=== PATIENT | female | born 1935 | race Caucasian/White ===

== ENCOUNTER 2018-01-28 05:21 | Day surgery (SDC) | payer MEDICARE, SELFPAY ==
--- NOTE | 2018-01-21 09:36 | EKG12_ITS ---
Test Reason : PREOP Blood Pressure : / mmHG Vent. Rate : 055 BPM Atrial Rate : 055 BPM P-R Int : 184 ms QRS Dur : 126 ms QT Int : 440 ms P-R-T Axes : 026 -75 -10 degrees QTc Int : 420 ms Sinus bradycardia with Premature atrial complexes Right bundle branch block Left anterior fascicular block Bifascicular block Abnormal ECG Confirmed by FRANCES MUSTAFA, BUSHRA ([id number]), telegraph editor RAMÓN JUNG ([id number] on 01/23/2018 10:15:45 AM Referred By: Rakesh Garcia Confirmed By:BUSHRA DANIELS MD
[2018-01-21 09:54] LABS: Hematocrit 39.8 % (37-47); Hemoglobin 12.9 g/dl (12.0-15.0); Mean Corp Hgb Conc 32.4 g/gl (32-36); Mean Corpuscular Volume 89.4 fL (81-99); Mean Platelet Vol. 9.9 fl (6.2-12.0); Platelet Count 193 K/mm3 (150-450); RBC Distribution Width SD 41.9 fl (35.1-43.9); Red Blood Count 4.45 M/mm3 (4.2-5.4)
[2018-01-21 09:56] LABS: Scan Indicated on CBC? Y/N NO
[2018-01-21 10:14] LABS: Anion Gap 7 (5-15); BUN 26 mg/dL (7-18); BUN/Creat Ratio 24.3 RATIO (10-20); Chloride 105 mmol/L (98-107); Creatinine, Serum 1.07 mg/dL (0.55-1.02); EST Glomerular Filtration Rate 52 mL/min (>60); Est Glom Filt Rate - Afr Amer 63 mL/min (>60); Glucose 87 mg/dL (74-106); Potassium 3.4 mmol/L (3.5-5.1); Sodium Level 142 mmol/L (136-145)
[2018-01-28] VITALS (7 sets, daily range): BP systolic 126–155; BP diastolic 76–80; PULSE 55–64; RESP 14–16; TEMP 36.4–36.9; O2SAT 95–98; BMI 26.9
--- NOTE | 2018-01-28 07:15 | TESH_PTH ---
PATIENT: ROSIE MORALES LOC: [facility] [place] U#:[id number] AGE/SX: 82/F ROOM: RE01/28/[address]: Dr. Rakesh Garcia MD : [id number] BED: DIS: 01/28/2018 SPEC #: [id number] RECD: 01/28/18 10:40 STATUS: KELLIE HEAVEN #: [id number] BRE: 01/28/18 07:[address]: Rakesh Garcia DEPT: SURGICAL PATHOLOGY RECD BY: Lorenzo Portillo ENTERED: 01/28/18 11:38 SP TYPE: TENDON OTHR DR: Dr. Clarke Murphy, DO Tissues: Tendon and tendon sheath, NOS Procedures: Surgery Specimen Level III HEADER OPERATION: Right carpal tunnel release, right fourth digit trigger finger PRE-OP DIAGNOSIS: Carpal tunnel syndrome of right wrist TISSUE SUBMITTED: Tenosynovium MICROSCOPIC DIAGNOSIS Tenosynovium: Fragments of fibrocartilaginous tissue with reactive changes. TONIA:ina 01/29/18 MICROSCOPIC DESCRIPTION Slides are reviewed. GROSS DESCRIPTION Received in fixative is one container labeled with the patient's name and designated tenosynovium. The specimen consists of two irregular fragments of light johnson soft tissue that in aggregate measure 0.7 x 0.2 x 0.1 cm. The specimen is totally submitted in one cassette. / AM:ina 01/28/18 TC:5 CPT: 73838
--- NOTE | 2018-01-28 07:36 | PCM.DC.GS ---
Discharge Diet: Light diet - advance as tolerated - if you have questions about your diet instructions, please talk to you doctor. Discharge Activity: May Not Drive - for 1 week or while taking narcotic pain medicine. May shower in (days): 1 Lifting Restrictions: 10 pounds Call your doctor if your incision/area has: Continuous Slow Oozing, Sudden Increased Bleeding, Increased Pain/ Swelling, Increased Redness, Foul Smelling Discharge Call your doctor if you observe: Fever of 101 or Higher Suture Line Care: Avoid Pulling/Pushing, Avoid Pinching/Bending Additional Dressing/Incision Instructions:: You may shower in 1 day if you are able to protect your right hand and dressings with a plastic bag. Limit her lifting of the right hand to 3-5 pounds. You may utilize her fingers for light work. Allergies/Adverse Reactions: Allergies JOE Inhibitors Allergy (Verified 01/21/18 08:42) Rash Penicillins Allergy (Verified 01/21/18 08:42) Rash gabapentin [From Neurontin] Adverse Reaction (Verified 01/21/18 08:42) Swelling oxycodone HCl [From Percocet] Adverse Reaction (Verified 01/21/18 08:42) Nausea tramadol Adverse Reaction (Verified 01/21/18 08:42) Nausea Medications to take at Discharge Vit A/Vit C/Vit E/Zinc/Copper [Preservision Areds Softgel] 1 ea PO DAILY 06/30/14 Hydrochlorothiazide 12.5 mg PO DAILY 04/02/16 Losartan Potassium [Cozaar] 100 mg PO DAILY 04/02/16 Diltiazem HCl [Cartia Xt] 240 mg PO DAILY 01/07/17 ibuprofen 200 mg tablet 200 mg PO BID 12/20/17 Primary Care Physician: Clarke Murphy DO [Primary Care Provider] - Test Results: Test results from this visit will be discussed in further detail at your follow-up appointment, if applicable. Please Follow Up With: Rakesh Garcia MD - [phone] When: Call to make an appointment to be seen on Saturday02/03/18
[2018-01-28] MEDS: Bupivacaine Mpf 0.5% 30 ML VIAL (08:00)
--- NOTE | 2018-01-28 08:18 | OP.PCM_ITS ---
Problem List (1) Carpal tunnel syndrome of right wrist Status: Acute (2) Trigger finger Status: Acute Qualifiers: Trigger finger location: ring finger Laterality: right Qualified Code(s) : M65.341 - Trigger finger, right ring finger Report of Operation Date of Procedure: 01/28/18 Pre-Operative Diagnosis: Right hand carpal tunnel syndrome, right hand fourth digit trigger finger Post-Operative Diagnosis: Same Surgery/Procedure Performed:: Right carpal tunnel release. Right hand fourth digit trigger finger release tenosynovectomy Description of Surgical Findings:: Timeout and informed consent was obtained. 82-year-old female was taken the operating room. The right upper extremity sterilely prepped and draped. A right upper extremity Kelly block was performed. 250 mmHg pressure for 32 minutes. The right hand was sterilely prepped and draped. A curvilinear incision in the base of the base of the right palm. Sharp dissection carried down to the palmar fascia. The palmar fascia was incised to the proximal wrist crease and then along the fourth ray was incised to the distal palmar crease. Excellent release was achieved. The wound was closed with deep layer of interrupted 4-0 chromic subdermal stitches and a running simple suture of 4-0 nylon. Attention was drawn to the right hand fourth digit. At the metacarpal phalangeal joint location a transverse incision was created sharp dissection carried down to Diaz tissue the tenosynovium was identified in the hypertrophic tendon identified a longitudinal incision was released. A tenosynovectomy was performed excising portions of hypertrophic tissue to allow for release of the tendon. At the completion there appeared to be free release with good motion of the tendon and resolution of the triggering. Fragments of excessive hypertrophic tenosynovium was submitted a specimen. This wound office was closed with a deep suture of interrupted 4-0 chromic and then simple sutures of 4-0 nylon. Each wound was anesthetized with 0.5% Marcaine total of only 3 cc was used. Telfa 4 x 4 soft roll Kwan wrap applied. Sponge and instrument and needle counts were reported to the surgeon to be correct. Blood loss was minimal. Specimens include the tenosynovium. Drains none. She was taken to the recovery area in satisfactory condition Rakesh Garcia M.D., F.A.C.S. Type of Anesthesia:: Block,[place] Anesthesiologist: Angie Burns
== END 2018-01-28 09:22 | disposition home or self-care (01) ==
LOC: SDC 05:22 → AC 05:22
PROVIDERS: Family Provider Student in an Organized Health Care Education/Training Program; PCP Student in an Organized Health Care Education/Training Program; Visit Provider Surgery
PROC: (CPT 64721; principal; 2018-01-28 07:00)
DX: G56.01 Carpal tunnel syndrome, right upper limb (principal); M65.341 Trigger finger, right ring finger; I10 Essential (primary) hypertension; Z79.899 Other long term (current) drug therapy
CPT/HCPCS: 01810; 26055; 64721; 36415; 80048; 85027; 88304; 93005; J7120; J2405

== ENCOUNTER 2018-07-02 16:24 | Inpatient (IN) | payer MEDICARE, SELFPAY ==
[2018-07-02 16:25] VITALS: BP 173/111; PULSE 90; RESP 18; TEMP 37.2; O2SAT 92; BMI 28.3
--- NOTE | 2018-07-02 17:28 | ED.DCSUM_ITS ---
- ER Visit Summary Date of Service: 07/02/18 Chief Complaint: Blood in stool History of Present Illness: The patient is a 83 F who presents for an episode of bright red blood in her stool. Patient states that overnight she began having abdominal cramping and diarrhea. It was watery and she had multiple episodes. Today the diarrhea and the abdominal cramping have resolved, however patient noted a small amount of bright red blood in her last bowel movement. She then had one more bowel movement that had a large amount of bright red blood in it. She denies any melena, rectal pain, fever, chest pain, shortness of breath, dizziness or lightheadedness. No nausea or vomiting. Patient is not on any bl ood thinners. She has no history of having a colonoscopy in the past. Patient has had decreased oral intake due to the diarrhea and just not feeling well. Physical Examination: Vital signs: afebrile, hemodynamically stable, no hypoxia on room air General: well nourished, well developed, in no distress Skin: warm, dry, no rash, no pallor HEENT: normocephalic and atraumatic; PERRL, EOMI, dry mucous membranes Cardiovascular: regular rate and rhythm without murmurs, no peripheral edema, 2+ pulses all distal extremities Respiratory: No increased work of breathing, lungs are clear to auscultation bilaterally, no rales, rhonchi or wheezing Abdominal: Abdomen is soft, nontender with normoactive bowel sounds, no guarding or rebound, no masses, rectal exam shows no external hemorrhoids, nontender rectum with good rectal tone, no masses noted, soft brown stool on glove no leann blood MSK: Moves all extremities, no deformities, normal strength Neuro: Awake and alert, oriented ?4. No facial droop, sensation and motor function intact and symmetric Test Results: Abnormal Lab Results 07/02/18 07/02/18 17:30 17:30 WBC 8.4 RBC 4.75 Hgb 13.5 Hct 42.2 MCV 88.8 MCH 28.4 MCHC 32.0 RDW 13.1 RDW Differential 42.4 Plt Count 185 MPV 9.3 Immature Gran % (Auto) 0.100 Neut % (Auto) 78.9 H Lymph % (Auto) 14.0 L [place] % (Auto) 5.8 Eos % (Auto) 1.1 Baso % (Auto) 0.1 Absolute Neuts (auto) 6.7 Absolute Lymphs (auto) 1.18 Total Counted Not Reportable Sodium 142 Potassium 2.7 L* Chloride 107 Carbon Dioxide 27.0 Anion Gap 8 BUN 21 H Creatinine 1.10 H Estim Creat Clear Calc 28.32 Est GFR (MDRD) Af Amer 61 Est GFR (MDRD) Non-Af 51 L BUN/Creatinine Ratio 19.1 Glucose 104 Calcium 9.1 Total Bilirubin 0.50 AST 18 ALT 15 Alkaline Phosphatase 74 Total Protein 8.1 Albumin 3.8 Globulin 4.3 H Albumin/Globulin Ratio 0.9 Lipase 151 Clinical Impression(s) from Imaging Studies Abdomen/Pelvis CT 07/02/18 19:30 IMPRESSION: Findings consistent with acute nonspecific colitis with primary involvement of the ascending and proximal to mid transverse colon with small amount of fluid in the right paracolic gutter Status post hysterectomy. 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 Clinical correlation is recommended Electronically Signed: Giovani Jimenez MD at 20:42 EST , Service support , Medications Given Discontinued Medications Sodium Chloride () 1,000 mls @ 500 mls/hr IV .Q2H ONE Stop: 07/02/18 19:23 Last Admin: 07/02/18 17:40 Dose: 500 mls/hr Potassium Chloride (Kcl 10meq/100ml) 10 meq in 100 mls @ 100 mls/hr IV BOLUS Q1H MAXIMUS Stop: 07/02/18 23:29 Last Admin: 07/02/18 23:51 Dose: 100 mls/hr Admin: 07/02/18 22:38 Dose: 100 mls/hr Admin: 07/02/18 21:17 Dose: 100 mls/hr Admin: 07/02/18 20:12 Dose: 100 mls/hr Emergency Department Course and Treatment: Patient presents for bright red blood in her stool after several episodes of diarrhea since yesterday. Patient's diarrhea has improved at this time, however given her age and the multiple episodes with concern for dehydration, labs were performed. Patient was hypokalemic at 2.7. EKG showed a right bundle branch block with prolonged QTC duration. Patient was positive blood in stool. Because of the occult blood and brown stool, the significant hypokalemia, and the crampy abdominal pain with no history of ever having a colonoscopy, imaging was performed. It showed transverse and ascending colitis, acute and nonspecific. Patient was not sta rted on antibiotics, as it is not clear that this is a bacterial colitis, and antibiotics may make her worse. She will require admission for treatment of her hypokalemia and further evaluation of her colitis. Patient was started on IV potassium and admitted to the hospitalist. Treatment Plan: [] Disposition: [] Impression: Hypokalemia, acute colitis, lower GI bleed This note was generated with [employer] dictation software. It may contain incorrect words, spelling, and punctuation that were not noted in review of the chart prior to signing ED Disposition - Plan for ED Patient: Disposition: Acute Care [facility] Chief Complaint: GI Bleed
[2018-07-02] MEDS: 0.9% Normal Saline 1,000 ML 500 ML IV (17:40)
[2018-07-02 18:12] LABS: Absolute Lymphocyte Count 1.18 X10^3/ul (0.83-4.51); Absolute Neutrophil Count 6.7 X10^3/uL (2.0-7.7); Basophil# 0.01 X10^3/uL; Basophil% 0.1 % (0-1); Eosinophil# 0.09 X10^3/uL; Eosinophils% 1.1 % (0-5); Hematocrit 42.2 % (37-47); Hemoglobin 13.5 g/dl (12.0-15.0); Lymphocyte # 1.18 X10^3/ul (4.0); Mean Corpuscular Hgb 28.4 pg (27.0-32.0); Mean Corpuscular Volume 88.8 fL (81-99); Mean Platelet Vol. 9.3 fl (6.2-12.0); Monocyte# 0.49 X10^3/uL; Monocyte% 5.8 % (0-10); Neutrophil # 6.66 X10^3/uL (2.7-7.7); Neutrophil % 78.9 % (47-70); Platelet Count 185 K/mm3 (150-450); RBC Distribution Width CV 13.1 % (11.6-14.6); RBC Distribution Width SD 42.4 fl (35.1-43.9); Red Blood Count 4.75 M/mm3 (4.2-5.4); White Blood Count 8.4 K/mm3 (4.4-11.0)
[2018-07-02 18:22] LABS: POSITIVE COUNT NO; POSITIVE DIFFERENTIAL NO
[2018-07-02 18:23] LABS: POSITIVE MORPHOLOGY NO
[2018-07-02 18:40] LABS: BUN 21 mg/dL (7-18); Estimated Creatinine Clearance 28.32 ml/min; Glucose 104 mg/dL (74-106)
[2018-07-02 18:41] LABS: ALB/GLOB Ratio 0.9 RATIO (0.9-2.4); AST(SGOT) 18 U/L (15-37); Alanine Aminotransfer ALT/SGPT 15 U/L (13-56); Albumin, Serum 3.8 g/dL (3.2-5.0); Alkaline Phosphatase 74 U/L (45-117); Anion Gap 8 (5-15); BUN/Creat Ratio 19.1 RATIO (10-20); Calcium,Total 9.1 mg/dL (8.5-10.1); Chloride 107 mmol/L (98-107); EST Glomerular Filtration Rate 51 mL/min (>60); Est Glom Filt Rate - Afr Amer 61 mL/min (>60); Globulin 4.3 g/dL (2.2-4.2); Lipase 151 U/L (73-393); Potassium 2.7 mmol/L (3.5-5.1); Protein, Total 8.1 g/dL (6.4-8.2); Sodium Level 142 mmol/L (136-145)
[2018-07-02 19:23] VITALS: BP 154/86; PULSE 86; RESP 18; O2SAT 94
--- NOTE | 2018-07-02 19:30 | CT_ITS ---
STUDY: CT ABDOMEN AND PELVIS WITH CONTRAST REASON FOR EXAM: Female, 83 years old. Diarrhea RADIATION DOSAGE (If Supplied By Facility): CTDIvol = ( 16.86 ) mGy, DLP = ( 825.90 ) mGycm TECHNIQUE: Transaxial images were obtained from the dome of the diaphragm to the symphysis pubis without oral contrast. 100ML ml of Isovue 300 contrast was administered. Sagittal and coronal images were reconstructed. Individualized dose optimization techniques were used for this CT. COMPARISON: None. FINDINGS: Minor atelectasis within the dependent portion of the lungs.. The heart size is normal. Mild coronary artery calcification. Small hiatal hernia is present Liver is fatty infiltrated without mass or bile duct dilatation Normal gallbladder and extrahepatic biliary system. Normal spleen. Normal pancreas. Normal bilateral adrenal glands. No evidence for renal obstruction or ureteral calculus. There is a solitary simple cyst in the right renal cortex and multiple simple cysts in left kidney. Normal visualized stomach. Normal small intestine. There is diminished haustration and submucosal edema within the junior of the ascending and proximal to mid transverse colon with stranding in the fat consistent with acute nonspecific colitis. There is a small amount of fluid in the right paracolic gutter. No evidence for acute appendicitis Atherosclerotic changes of the aorta without evidence for aneurysm periaortic leak or dissection.. Normal inferior vena cava. Normal retroperitoneum. Normal urinary bladder. In the left adnexa, there is a 2.6 x 2.6 cm complex predominantly fatty mass demonstrating focal calcification. There is a trace of fluid in the pelvis on the right Uterus not visualized consistent with hysterectomy. Moderate size fat-containing inguinal hernias noted on the left . The lumbar spine demonstrates mild spondylosis. Grade 1 spondylolisthesis at L4-5 CT/Abdomen/Pelvis W IV Cont ONLY IMPRESSION: Findings consistent with acute nonspecific colitis with primary involvement of the ascending and proximal to mid transverse colon with small amount of fluid in the right paracolic gutter Status post hysterectomy. 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 Clinical correlation is recommended Electronically Signed: Giovani Jimenez MD at 20:42 EST , Service support ,
--- NOTE | 2018-07-02 19:31 | EKG12_ITS ---
Test Reason : GI BLEED Blood Pressure : / mmHG Vent. Rate : 087 BPM Atrial Rate : 087 BPM P-R Int : 204 ms QRS Dur : 138 ms QT Int : 416 ms P-R-T Axes : 008 -89 -10 degrees QTc Int : 500 ms Normal sinus rhythm Left axis deviation Right bundle branch block Possible Lateral infarct , age undetermined Inferior infarct , age undetermined Abnormal ECG Confirmed by FRANCES MUSTAFA, BUSHRA ([id number]), senior editor RAMÓN JUNG ([id number]) on 07/04/2018 9:53:21 AM Referred By: Ottoniel Zepeda Confirmed By:BUSHRA DANIELS MD
--- NOTE | 2018-07-02 21:07 | HP.PCM_ITS ---
Problem List (1) Acute hemorrhagic colitis Status: Acute (2) Hypertension Status: Chronic Qualifiers: Hypertension type: unspecified secondary hypertension Qualified Code(s): I15.9 - Secondary hypertension, unspecified; I15 - Secondary hypertension (3) Trigger finger Status: Acute Qualifiers: Trigger finger location: ring finger Laterality: right Qualified Code(s): M65.341 - Trigger finger, right ring finger (4) Carpal tunnel syndrome of right wrist Status: Inactive (5) Vertigo Status: Inactive (6) Carpal tunnel syndrome of left wrist Status: Inactive (7) Nausea and vomiting Status: Resolved Qualifiers: Vomiting Intractability: intractable History of Present Illness Date of Admission: 07/02/18 Chief Complaint: Diarrhea The patient is a 83 year old F with a significant history of hypertension who presented with 2-day history of diarrhea. She describes her diarrhea as multiple loose stools. Associated with her symptoms is multiple episodes of hematochezia. Patient denies any chills, fever, nausea or vomiting. At emergency department occult blood was positive. CT scan of the abdomen and pelvis showed findings consistent with acute nonspecific colitis with primary involvement of the ascending and proximal to m id transverse colon with small amounts of fluid in the right pericolic gutter. Patient denies eating any food out of the ordinary or eating at a restaurant. EKG at the emergency department showed right bundle branch block. Past Medical History Past Medical History (Chronic Problems): Chronic Problems (Last Reviewed 02/03/18 @ 09:20 by Meghan Zaragoza) Hypertension (Chronic) Medical History: Medical History (Last Reviewed 02/03/18 @ 09:20 by Meghan Zaragoza) Carpal tunnel syndrome of right wrist (Acute) G56.01 Vertigo (Acute) R42 Nausea and vomiting (Acute) R11.2 Hypertension (Chronic) I10 Carpal tunnel syndrome of left wrist (Acute) G56.02 Carpal tunnel syndrome of right wrist G56.01 History of hysterectomy Z90.710 Allergies JOE Inhibitors Allergy (Verified 07/02/18 16:27) Rash Penicillins Allergy (Verified 07/02/18 16:27) Rash gabapentin [From Neurontin] Adverse Reaction (Verified 07/02/18 16:27) Swelling oxycodone HCl [From Percocet] Adverse Reaction (Verified 07/02/18 16:27) Nausea tramadol Adverse Reaction (Verified 07/02/18 16:27) Nausea Home Medications: Ambulatory Orders Medication Instructions Recorded Vit A/Vit C/Vit E/Zinc/Copper 1 ea PO DAILY 06/30/14 [Preservision Areds Softgel] Losartan Potassium [Cozaar] 100 mg PO DAILY 04/02/16 hydroCHLOROthiazide 12.5 mg PO DAILY 04/02/16 [Hydrochlorothiazide] ibuprofen 200 mg tablet 200 mg PO BID 12/20/17 Diltiazem HCl [Diltiazem 24Hr Cd] 240 mg PO DAILY 07/02/18 Surgical History: Surgical History (Last Reviewed 07/03/18 @ 02:01 by Ottoniel Zepeda MD) History of carpal tunnel release Z98.890 left History of thyroid surgery Z98.890 Status post carpal tunnel release Onset Date: ~01/2018 Z98.890 Surgical History: no surgical history Smoking Status: Never smoker - *Family History Maternal Family History: Family History (Last Reviewed 07/03/18 @ 02:02 by Ottoniel Zepeda MD) Father Asthma Heart disease Hypertension Mother Breast cancer Sister Breast cancer Review of Systems Constitutional: Denies: Chills, Fever, Weight Change HEENT: Denies: Head Aches, Sinus Congestion, Sinus Drainage Cardiovascular: Denies: Chest Pain, Palpitations Respiratory: Denies: Cough, Shortness of breath at rest, Sputum production Gastrointestinal: Reports: Diarrhea. Denies: Abdominal Pain, Nausea, Vomiting Genitourinary: Denies: Dysuria Musculoskeletal: Denies: Joint Pain, Joint Tenderness Skin: Denies: Rash, Wounds Neurological: Reports: Balance problems. Denies: Focal weakness, Numbness, Tingling Psychiatric: Denies: Anxiety, Depression, Homicidal Ideations, Suicidal Ideations Hematologic/ Lymphatic: Denies: Easy Bruising, Easy Bleeding VTE Information - Inpt Only VTE Present on Admission: No VTE Mechan Device Prophylaxis: SCD's VTE Pharm Prophylaxis ordered?: No Patient Problems: Active and Suspected Problems (Last Reviewed 02/03/18 @ 09:20 by Meghan Zaragoza) Acute hemorrhagic colitis (Acute) - Physical Exam General: Alert, Oriented x3, Cooperative HEENT: Atraumatic, PERRLA, EOMI, Normocephalic Neck: Supple, No JVD, Negative Carotid Bruits Lungs: Clear to auscultation, Normal air movement Cardiovascular: Regular rate, No murmurs Abdomen: Bowel Sounds Present, Soft, Non Tender, - - Rectal examination showed bright red blood per rectum. No masses were palpated. Extremities: No edema, Capillary Refill Less than 3 Seconds Skin: No rashes, No breakdown Musculoskeletal: No Tenderness to Palpation of Joints or Extremities Neurological: Cranial nerves II-XII grossly intact Psych/Mental Status: Normal Affect, Appropriate Vital Signs Temp Pulse Resp BP Pulse Ox 98.9 F 86 18 154/86 H 94 07/02/18 16:25 07/02/18 19:23 07/02/18 19:23 07/02/18 19:23 07/02/18 19:23 Oxygen Delivery Method Room Air Weight: 65.771 kg Body Mass Index (BMI) 28.3 Microbiology Past 72 Hours 07/02/18 17:20 Stool Occult Blood (SHAKILA) - Final Stool Laboratory Tests Past 24 Hrs 07/02/18 07/02/18 17:30 17:30 WBC 8.4 RBC 4.75 Hgb 13.5 Hct 42.2 MCV 88.8 MCH 28.4 MCHC 32.0 RDW 13.1 RDW Differential 42.4 Plt Count 185 MPV 9.3 Immature Gran % (Auto) 0.100 Neut % (Auto) 78.9 H Lymph % (Auto) 14.0 L [place] % (Auto) 5.8 Eos % (Auto) 1.1 Baso % (Auto) 0.1 Absolute Neuts (auto) 6.7 Absolute Lymphs (auto) 1.18 Total Counted Not Reportable Sodium 142 Potassium 2.7 L* Chloride 107 Carbon Dioxide 27.0 Anion Gap 8 BUN 21 H Creatinine 1.10 H Estim Creat Clear Calc 28.32 Est GFR (MDRD) Af Amer 61 Est GFR (MDRD) Non-Af 51 L BUN/Creatinine Ratio 19.1 Glucose 104 Calcium 9.1 Total Bilirubin 0.50 AST 18 ALT 15 Alkaline Phosphatase 74 Total Protein 8.1 Albumin 3.8 Globulin 4.3 H Albumin/Globulin Ratio 0.9 Lipase 151 Assessment/Plan All Active Problems (Last Reviewed 02/03/18 @ 09:20 by Meghan Zaragoza) Acute hemorrhagic colitis (Acute) Trigger finger (Acute) Nausea and vomiting (Resolved) Patient is a 83 year old F with a significant history of hypertension who presented with 2-day history of diarrhea; hematochezia; and with radiographic evidence of findings consistent with acute nonspecific colitis with primary involvement of the ascending and proximal to mid transverse colon; and with small amounts of fluid in the right pericolic gutter. Acute hemorrhagic colitis Diagnosis include viral colitis; bacterial colitis or ischemic colitis or other. Since denies any associated symptoms of fever or chills we will not initiate antibiotic therapy at this time. Supportive treatment with IV fluids. Patient reports that she has not had a colonoscopy in the past. Since it is possible that a tumor may be hiding behind this I discussed with the patient the possibility of having a outpatient colonoscopy that we can facilitate whiles at the hospital.. Patient stated that she will about this think with his son and make a decision. Please follow-up. Trend CBC Hypokalemia At the emergency department patient potassium was 2.7. Received 40 mEq of IV potassium at emergency department. We will continue patient on lactated Ringer's 40 meq of potassium maintenance i nfusion. Potassium 40 mEq p.o. twice daily ordered. Trend BMP Hypertension On admission her blood pressure was not within goal. Patient reported that because of her diarrhea she did not know how medication will far in her abdomen so she did not take her blood pressure medication Home Cardizem continued We will hold hydrochlorthiazide in the setting of diarrhea and hypokalemia. As needed labetalol ordered.. DVT prophylaxis In the setting of hemorrhagic colitis chemical chemoprophylaxis was not initiated. SCD ordered. Code Visit Inpatient E&M: 39210 Init Hosp L3
[2018-07-02 21:21] VITALS: BP 162/102; PULSE 89; RESP 12; O2SAT 93
[2018-07-02 22:33] VITALS: PULSE 82
[2018-07-02 22:40] VITALS: BP 162/96; PULSE 76; RESP 18; TEMP 36.6; O2SAT 95
[2018-07-02 22:44] VITALS: BMI 28.1
[2018-07-02 22:48] VITALS: BMI 28.2
[2018-07-03] VITALS (13 sets, daily range): BP systolic 131–164; BP diastolic 63–110; PULSE 59–82; RESP 18; TEMP 36.7–37.3; O2SAT 92–96
[2018-07-03] MEDS: Labetalol 20 MG/4 ML Vial 10 MG IV (02:28)
[2018-07-03 06:05] LABS: Hematocrit 40.1 % (37-47); Hemoglobin 12.8 g/dl (12.0-15.0); Mean Corp Hgb Conc 31.9 g/gl (32-36); Mean Corpuscular Hgb 28.6 pg (27.0-32.0); Mean Corpuscular Volume 89.5 fL (81-99); Mean Platelet Vol. 9.2 fl (6.2-12.0); Platelet Count 172 K/mm3 (150-450); RBC Distribution Width CV 13.1 % (11.6-14.6); RBC Distribution Width SD 42.4 fl (35.1-43.9); Red Blood Count 4.48 M/mm3 (4.2-5.4); White Blood Count 8.9 K/mm3 (4.4-11.0)
[2018-07-03 06:11] LABS: Prothrombin Time (Protime)PT. 13.2 SECONDS (11.7-14.9)
[2018-07-03 06:12] LABS: Scan Indicated on CBC? Y/N NO
[2018-07-03 06:22] LABS: Anion Gap 8 (5-15); BUN 16 mg/dL (7-18); BUN/Creat Ratio 17.4 RATIO (10-20); Calcium,Total 8.7 mg/dL (8.5-10.1); Chloride 108 mmol/L (98-107); Creatinine, Serum 0.92 mg/dL (0.55-1.02); EST Glomerular Filtration Rate 62 mL/min (>60); Est Glom Filt Rate - Afr Amer 75 mL/min (>60); Estimated Creatinine Clearance 35.58 ml/min; Glucose 97 mg/dL (74-106); Potassium 3.9 mmol/L (3.5-5.1); Sodium Level 141 mmol/L (136-145)
--- NOTE | 2018-07-03 07:49 | PCM.PN.HOSP ---
Patient Problems: Active and Suspected Problems (Last Reviewed 02/03/18 @ 09:20 by Meghan Zaragoza) Acute hemorrhagic colitis (Acute) Subjective: Seen and examined. Has had one bowel movement since being admitted. No bleeding seen. Stools appears almost well-formed. Denied any abdominal pain. Denied any dizziness or palpitation. Vitals/I&O's: Vital Signs Temp Pulse Resp BP Pulse Ox 98.1 F 82 18 162/88 H 96 07/03/18 03:57 07/03/18 07:00 07/03/18 03:57 07/03/18 03:57 07/03/18 03:57 Oxygen Delivery Method Room Air Weight: 67.6 kg Body Mass Index (BMI) 28.1 Intake and Output for Last 24 Hours 07/01/18 07/02/18 07/03/18 23:59 23:59 23:59 Intake Total 345 / 345 468 / 468 Balance 345 / 345 468 / 468 General: Alert, Oriented x3, Cooperative, No apparent distress HEENT: Atraumatic, PERRLA, EOMI, Normocephalic Oral: Moist Mucosa Neck: Supple, No JVD, Negative Carotid Bruits Lungs: Clear to auscultation, Normal air movement Cardiovascular: Regular rate, Regular Rhythm, Normal S1, Normal S2, No murmurs Abdomen: Bowel Sounds Present, Soft, Non Tender, Non-Distended, No Hepato-splenomegaly Extremities: No edema Skin: No rashes, No breakdown Musculoskeletal: No Tenderness to Palpation of Joints or Extremities Lymphatic: No Cervical, Supraclavicular, or Inguinal Adenopathy Neurological: Cranial nerves II-XII grossly intact, Neuro grossly intact Psych/Mental Status: Normal Affect, Appropriate Microbiology Past 72 Hours 07/03/18 05:40 Stool Stool Lactoferrin - Final 07/02/18 17:20 Stool Stool Occult Blood (SHAKILA) - Final Laboratory Results 07/02/18 17:30: WBC 8.4, RBC 4.75, Hgb 13.5, Hct 42.2, MCV 88.8, MCH 28.4, MCHC 32.0, RDW 13.1, RDW Differential 42.4, Plt Count 185, MPV 9.3, Immature Gran % (Auto) 0.100, Neut % (Auto) 78.9 H, Lymph % (Auto) 14.0 L, [place] % (Auto) 5.8, Eos % (Auto) 1.1, Baso % (Auto) 0.1, Absolute Neuts (auto) 6.7, Absolute Lymphs (auto) 1.18, Total Counted Not Reportable 07/02/18 17:30: Sodium 142, Potassium 2.7 L*, Chloride 107, Carbon Dioxide 27.0, Anion Gap 8, BUN 21 H, Creatinine 1.10 H, Estim Creat Clear Calc 28.32, Est GFR (MDRD) Af Amer 61, Est GFR (MDRD) Non-Af 51 L, BUN/Creatinine Ratio 19.1, Glucose 104, Calcium 9.1, Total Bilirubin 0.50, AST 18, ALT 15, Alkaline Phosphatase 74, Total Protein 8.1, Albumin 3.8, Globulin 4.3 H, Albumin/Globulin Ratio 0.9, Lipase 151 07/03/18 05:40: Stl Giardia Antigen Pending 07/03/18 05:50: WBC 8.9, RBC 4.48, Hgb 12.8, Hct 40.1, MCV 89.5, MCH 28.6, MCHC 31.9 L, RDW 13.1, RDW Differential 42.4, Plt Count 172, MPV 9.2 07/03/18 05:50: PT 13.2, INR 1.0 07/03/18 05:50: Sodium 141, Potassium 3.9, Chloride 108 H, Carbon Dioxide 25.0, Anion Gap 8, BUN 16, Creatinine 0.92, Estim Creat Clear Calc 35.58, Est GFR (MDRD) Af Amer 75, Est GFR (MDRD) Non-Af 62, BUN/Creatinine Ratio 17.4, Glucose 97, Calcium 8.7 Current Medications Diltiazem HCl (Cardizem Cd) 240 mg PO DAILY [facility] Potassium Chloride 40 meq/ (Lactated Ringer's) 1,020 mls @ 100 mls/hr IV .[id number] [facility] Stop: 07/03/18 11:44 Last Admin: 07/03/18 02:06 Dose: 100 mls/hr Influenza Virus Vaccine Quadrival (Fluarix/Fluzone) 0.5 ml IM .ONCE ONE Stop: 07/03/18 10:01 Labetalol HCl (Trandate) 10 mg IV Q4H PRN PRN PRN Reason: SBP >160 Last Admin: 07/03/18 02:28 Dose: 10 mg Losartan Potassium (Cozaar) 100 mg PO DAILY [facility] Magnesium Hydroxide (Milk Of Magnesia) 30 ml PO DAILY PRN PRN Reason: Constipation Multivitamins/Minerals (Healthy Eyes) 1 tablet PO DAILY [facility] Potassium Chloride (K-Dur) 40 meq PO BIDCM [facility] Last Admin: 07/03/18 02:05 Dose: 40 meq Sodium Chloride () 5 - 15 ml IV UD PRN PRN Reason: SALINE FLUSH Medical Necessity - Tobacco Use Smoking Status: Never smoker Assessment/Plan All Active Problems (Last Reviewed 02/03/18 @ 09:20 by Meghan Zaragoza) Acute hemorrhagic colitis (Acute) Trigger finger (Acute) Nausea and vomiting (Resolved) 83-year-old past medical history of hypertension who comes in with complaints of diarrhea with hematochezia. CT scan of the abdomen and pelvis that showed colitis of the ascending and proximal to mid transverse colon. Surgery has been consulted. 1. Acute GI bleed secondary to colitis, C. difficile negative, stool lactoferrin negative, enteric panel is pending, started on IV Cipro and Flagyl. The other differential could be ischemic colitis. Plan: Continue on IV Cipro and Flagyl, continue to monitor stools, labs in a.m., need outpatient colonoscopy, general surgery consulted. 2. Hypokalemia, resolved, trend lab in a.m. 3. Hypertension, slightly uncontrolled, continue on her home medications -Cardizem, losartan, as needed labetalol 4. CKD stage 3, will continue to monitor 5. Osteoarthritis, on ibuprofen, will not recommend continuing. 6. DVT PPx- SCDs on account of GI bleed Code Visit Inpatient E&M: 22895 Subs Hosp L2
[2018-07-03] MEDS: Losartan Potassium 100 MG Tablet PO (09:27)
[2018-07-03] MEDS: dilTIAZem CD 240 MG Capsule PO (09:27)
[2018-07-03] MEDS: Ciprofloxacin 200 MG/100 ML BAG 100 MG IV ×2 (11:32→21:26)
--- NOTE | 2018-07-03 12:23 | PCM.CONS.GEN ---
Reason for Consult Date of Consultation: 07/03/18 History of Present Illness: The patient is a 83 year old F presented to the ER due to diarrhea with some bright red blood starting yesterday. Patient states in the morning started to have diarrhea may be only a little abdominal cramping with that but by the the afternoon she had diarrhea with some bright red blood. While she has been the hospital she has had some clots with her diarrhea. However her last bowel movement was starting to be more formed with no blood. Patient had CT abdomen pelvis which was consistent with nonspecific colitis of the ascending and transverse colon. Patient's white blood cell count was normal admit with left shift, her white blood cell count this morning had no differential that was also normal. Patient was just started on Cipro Flagyl today. She denies any nausea or vomiting or abdominal pain. Patient has never had a colonoscopy. Past Medical History Past Medical History (Chronic Problems): Chronic Problems (Last Reviewed 02/03/18 @ 09:20 by Meghan Zaragoza) Hypertension (Chronic) Medical History: Medical History (Last Reviewed 02/03/18 @ 09:20 by Meghan Zaragoza) Carpal tunnel syndrome of right wrist (Inactive) G56.01 Vertigo (Inactive) R42 Nausea and vomiting (Resolved) R11.2 Hypertension (Chronic) I10 Carpal tunnel syndrome of left wrist (Inactive) G56.02 Carpal tunnel syndrome of right wrist G56.01 History of hysterectomy Z90.710 Allergies JOE Inhibitors Allergy (Verified 07/02/18 16:27) Rash Penicillins Allergy (Verified 07/02/18 16:27) Rash gabapentin [From Neurontin] Adverse Reaction (Verified 07/02/18 16:27) Swelling oxycodone HCl [From Percocet] Adverse Reaction (Verified 07/02/18 16:27) Nausea tramadol Adverse Reaction (Verified 07/02/18 16:27) Nausea Home Medications: Ambulatory Orders Medication Instructions Recorded Vit A/Vit C/Vit E/Zinc/Copper 1 ea PO DAILY 06/30/14 [Preservision Areds Softgel] Losartan Potassium [Cozaar] 100 mg PO DAILY 04/02/16 hydroCHLOROthiazide 12.5 mg PO DAILY 04/02/16 [Hydrochlorothiazide] Diltiazem HCl [Diltiazem 24Hr Cd] 240 mg PO DAILY 12/12/18 Ciprofloxacin [Cipro] 500 mg PO BID #14 tablet 07/04/18 Metronidazole [Flagyl] 500 mg PO TID #21 tablet 07/04/18 Pantoprazole Sodium [Protonix] 40 mg PO BID #60 tablet 07/04/18 Potassium Chloride [K-Dur] 20 meq PO DAILY #30 tablet 07/04/18 Surgical History: Surgical History (Last Reviewed 07/03/18 @ 02:01 by Ottoniel Zepeda MD) History of carpal tunnel release Z98.890 left History of thyroid surgery Z98.890 Status post carpal tunnel release Onset Date: ~01/2018 Z98.890 Surgical History: no surgical history Smoking Status: Never smoker - *Family History Maternal Family History: Family History (Last Reviewed 07/03/18 @ 02:02 by Ottoniel Zepeda MD) Father Asthma Heart disease Hypertension Mother Breast cancer Sister Breast cancer History Items: No pertinent history Review of Systems Constitutional: Denies: Anorexia Eyes: Denies: Blurred vision HEENT: Denies: Difficulty Swallowing Cardiovascular: Denies: Chest Pain Respiratory: Denies: Shortness of Breath Gastrointestinal: Reports: Diarrhea, Hematochezia. Denies: Abdominal Pain Genitourinary: Denies: Dysuria Neurological: Denies: Balance problems Psychiatric: Denies: Anxiety, Depression Hematologic/ Lymphatic: Denies: Easy Bruising - Physical Exam General: Alert, Oriented x3, Cooperative, No apparent distress HEENT: Atraumatic Lungs: Normal air movement Cardiovascular: Regular rate Abdomen: Soft, Non Tender, Non-Distended Extremities: No clubbing, No cyanosis Neurological: Cranial nerves II-XII grossly intact Psych/Mental Status: Normal Affect Vital Signs Temp Pulse Resp BP Pulse Ox 99.1 F 69 18 152/91 H 96 07/03/18 09:21 07/03/18 10:59 07/03/18 09:21 07/03/18 09:21 07/03/18 09:30 Oxygen Delivery Method Room Air Weight: 149 lb 0.52 oz Body Mass Index (BMI) 28.1 Intake and Output for Last 24 Hours 07/01/18 07/02/18 07/03/18 23:59 23:59 23:59 Intake Total 345 / 345 468 / 468 Balance 345 / 345 468 / 468 Microbiology Past 72 Hours 07/03/18 05:40 C. difficile DNA Amplification - Final Stool 07/03/18 05:40 Stool Lactoferrin - Final Stool 07/02/18 17:20 Stool Occult Blood (SHAKILA) - Final Stool Laboratory Tests Past 24 Hrs 07/02/18 07/02/18 07/03/18 17:30 17:30 05:40 WBC 8.4 RBC 4.75 Hgb 13.5 Hct 42.2 MCV 88.8 MCH 28.4 MCHC 32.0 RDW 13.1 RDW Differential 42.4 Plt Count 185 MPV 9.3 Immature Gran % (Auto) 0.100 Neut % (Auto) 78.9 H Lymph % (Auto) 14.0 L [place] % (Auto) 5.8 Eos % (Auto) 1.1 Baso % (Auto) 0.1 Absolute Neuts (auto) 6.7 Absolute Lymphs (auto) 1.18 Total Counted Not Reportable PT INR Sodium 142 Potassium 2.7 L* Chloride 107 Carbon Dioxide 27.0 Anion Gap 8 BUN 21 H Creatinine 1.10 H Estim Creat Clear Calc 28.32 Est GFR (MDRD) Af Amer 61 Est GFR (MDRD) Non-Af 51 L BUN/Creatinine Ratio 19.1 Glucose 104 Calcium 9.1 Total Bilirubin 0.50 AST 18 ALT 15 Alkaline Phosphatase 74 Total Protein 8.1 Albumin 3.8 Globulin 4.3 H Albumin/Globulin Ratio 0.9 Lipase 151 Stl Giardia Antigen Pending 07/03/18 07/03/18 07/03/18 05:50 05:50 05:50 WBC 8.9 RBC 4.48 Hgb 12.8 Hct 40.1 MCV 89.5 MCH 28.6 MCHC 31.9 L RDW 13.1 RDW Differential 42.4 Plt Count 172 MPV 9.2 Immature Gran % (Auto) Neut % (Auto) Lymph % (Auto) [place] % (Auto) Eos % (Auto) Baso % (Auto) Absolute Neuts (auto) Absolute Lymphs (auto) Total Counted PT 13.2 INR 1.0 Sodium 141 Potassium 3.9 Chloride 108 H Carbon Dioxide 25.0 Anion Gap 8 BUN 16 Creatinine 0.92 Estim Creat Clear Calc 35.58 Est GFR (MDRD) Af Amer 75 Est GFR (MDRD) Non-Af 62 BUN/Creatinine Ratio 17.4 Glucose 97 Calcium 8.7 Total Bilirubin AST ALT Alkaline Phosphatase Total Protein Albumin Globulin Albumin/Globulin Ratio Lipase Stl Giardia Antigen Assessment/Plan All Active Problems (Last Reviewed 02/03/18 @ 09:20 by Meghan Zaragoza) Acute hemorrhagic colitis (Acute) Trigger finger (Acute) Nausea and vomiting (Resolved) 83-year-old with questionable ischemic colitis to the right and transverse colon, hematochezia 1. Clears to allow for bowel rest. 2. Cipro/Flagyl IV 3. Patient states her last BM was more formed and she did not see any blood we will continue to monitor. 4. Discussed with patient that if she continues to do well-she can follow-up as an outpatient for a colonoscopy. Amy Redd M.D. Pager: [phone] [facility] [place] [facility] [address] [place] [address], [facility], [address] [place] [address] Office: [phone] Code Visit Inpatient E&M: 40726 Init Hosp L2
--- NOTE | 2018-07-03 13:06 | CASEMGMT ---
This RN CM to room to see pt and pt is up to bathroom at this time. Will attempt again later. SStaten KELSI CM
--- NOTE | 2018-07-03 14:22 | CASEMGMT ---
KELSI VALENZUELA assessment: Face to Face with patient for initial transition planning/care coordination assessment. KELSI VALENZUELA introduced self and role at [facility], pt voices understanding and consents to assessment at this time. Pt is sitting up in chair in no distress at this time. Pt is A/Ox4 at this time and answers all questions appropriately at this time. Care providers, pharmacy, and demographics verified/updated at this time. PCP: Jeffrey Specialists: surgeon Skip Garcia Pharmacy: [facility] Insurance: [facility] Prescription Benefit: [facility] Living Will/HPOA: Pt states has LW/HPOA but they are not currently on file at [facility] at this time. Pt states son, Guilherme Leo, is HPOA. LNOK: han Alejandra Living Arrangements: Pt states live with son in an apartment with 8-10 steps and states no concerns at home at this time. Pt states no concerns with completing ADL's. Transportation: Pt states drives self or son drives and states no transportation concerns at this time. DME/HHC: Pt states has a cane and walker but does not use. Pt states handles/grab bars in shower. Pt states no hx of HHC or SNF in the past. Pt states no concerns with going home at time of discharge. Pt states is retired. Pt states does not smoke or drink ETOH. Pt states no further questions/concerns/needs at this time. CM to follow for any further discharge planning/needs. Advised pt to ask for CM if any further questions/concerns/needs arise, voices understanding. Plan: Home SStaten KELSI VALENZUELA
[2018-07-04 02:55] VITALS: BP 136/62; PULSE 63; RESP 18; TEMP 36.9; O2SAT 93
[2018-07-04 03:43] VITALS: PULSE 58
[2018-07-04 06:16] LABS: Absolute Lymphocyte Count 1.59 X10^3/ul (0.83-4.51); Absolute Neutrophil Count 4.2 X10^3/uL (2.0-7.7); Basophil# 0.02 X10^3/uL; Basophil% 0.3 % (0-1); Eosinophil# 0.37 X10^3/uL; Eosinophils% 5.6 % (0-5); Hematocrit 37.3 % (37-47); Hemoglobin 11.9 g/dl (12.0-15.0); Lymphocyte # 1.59 X10^3/ul (4.0); Lymphocyte % 23.9 % (19-41); Mean Corp Hgb Conc 31.9 g/gl (32-36); Mean Corpuscular Hgb 28.5 pg (27.0-32.0); Mean Corpuscular Volume 89.4 fL (81-99); Mean Platelet Vol. 9.5 fl (6.2-12.0); Monocyte# 0.45 X10^3/uL; Monocyte% 6.8 % (0-10); Neutrophil % 63.2 % (47-70); Platelet Count 156 K/mm3 (150-450); RBC Distribution Width CV 13.3 % (11.6-14.6); RBC Distribution Width SD 43.4 fl (35.1-43.9); Red Blood Count 4.17 M/mm3 (4.2-5.4); White Blood Count 6.6 K/mm3 (4.4-11.0)
[2018-07-04 06:24] LABS: POSITIVE COUNT NO; POSITIVE DIFFERENTIAL NO; POSITIVE MORPHOLOGY NO
[2018-07-04 06:33] LABS: Anion Gap 7 (5-15); BUN 12 mg/dL (7-18); BUN/Creat Ratio 12.5 RATIO (10-20); Calcium,Total 8.7 mg/dL (8.5-10.1); Chloride 110 mmol/L (98-107); Creatinine, Serum 0.96 mg/dL (0.55-1.02); EST Glomerular Filtration Rate 59 mL/min (>60); Est Glom Filt Rate - Afr Amer 72 mL/min (>60); Estimated Creatinine Clearance 34.09 ml/min; Glucose 97 mg/dL (74-106); Sodium Level 144 mmol/L (136-145)
[2018-07-04 07:00] VITALS: PULSE 50; O2SAT 97
--- NOTE | 2018-07-04 08:19 | PCM.PN.SRG ---
Patient Problems: Active and Suspected Problems (Last Reviewed 02/03/18 @ 09:20 by Meghan Zaragoza) Acute hemorrhagic colitis (Acute) Subjective: Patient tolerated clears, continues to have no abdominal pain or nausea or vomiting, bowel movement soft no blood - Physical Exam General: Alert, Oriented x3, Cooperative, No apparent distress Lungs: Normal air movement Cardiovascular: Regular rate Abdomen: Soft, Non Tender, Non-Distended, Passing Flatus Vital Signs Temp Pulse Resp BP Pulse Ox 98.4 F 50 L 18 136/62 H 97 07/04/18 02:55 07/04/18 07:00 07/04/18 02:55 07/04/18 02:55 07/04/18 07:00 Oxygen Delivery Method Room Air Weight: 149 lb 0.52 oz Body Mass Index (BMI) 28.1 Intake and Output for Last 24 Hours 07/02/18 07/03/18 07/04/18 23:59 23:59 23:59 Intake Total 345 / 345 2197 / 2197 407 / 407 Output Total 875 / 875 400 / 400 Balance 345 / 345 1322 / 1322 7 / 7 Microbiology Past 72 Hours 07/03/18 05:40 Enteric Bacteriology - Final Stool 07/03/18 05:40 C. difficile DNA Amplification - Final Stool 07/03/18 05:40 Stool Lactoferrin - Final Stool 07/02/18 17:20 Stool Occult Blood (SHAKILA) - Final Stool Laboratory Tests Past 24 Hrs 07/04/18 07/04/18 05:40 05:40 WBC 6.6 RBC 4.17 L Hgb 11.9 L Hct 37.3 MCV 89.4 MCH 28.5 MCHC 31.9 L RDW 13.3 RDW Differential 43.4 Plt Count 156 MPV 9.5 Immature Gran % (Auto) 0.200 Neut % (Auto) 63.2 Lymph % (Auto) 23.9 [place] % (Auto) 6.8 Eos % (Auto) 5.6 H Baso % (Auto) 0.3 Absolute Neuts (auto) 4.2 Absolute Lymphs (auto) 1.59 Total Counted Not Reportable Sodium 144 Potassium 4.0 Chloride 110 H Carbon Dioxide 27.0 Anion Gap 7 BUN 12 Creatinine 0.96 Estim Creat Clear Calc 34.09 Est GFR (MDRD) Af Amer 72 Est GFR (MDRD) Non-Af 59 L BUN/Creatinine Ratio 12.5 Glucose 97 Calcium 8.7 Medical Necessity - Tobacco Use Smoking Status: Never smoker Assessment/Plan All Active Problems (Last Reviewed 02/03/18 @ 09:20 by Meghan Zaragoza) Acute hemorrhagic colitis (Acute) Trigger finger (Acute) Nausea and vomiting (Resolved) 83-year-old with questionable ischemic colitis to the right and transverse colon, hematochezia 1. Okay for low fiber diet if tolerates okay to DC home on a low fiber diet 2. Cipro/Flagyl IV--changed to p.o. for a total of 1 week upon discharge 3. Patient has had no further bloody bowel movements, last was formed and no blood per patient 4. Follow-up in 2-3 weeks upon discharge to discuss colonoscopy and stay on a low fiber diet. Amy Redd M.D. Pager: [phone] [facility] [address] [place] [address], [facility], [address] [place] [address] Office: [phone]
[2018-07-04 08:55] VITALS: BP 161/94; PULSE 67; RESP 14; TEMP 36.9; O2SAT 92
[2018-07-04] MEDS: Ciprofloxacin 200 MG/100 ML BAG 100 MG IV (09:11)
[2018-07-04] MEDS: dilTIAZem CD 240 MG Capsule PO (09:12)
[2018-07-04] MEDS: Losartan Potassium 100 MG Tablet PO (09:13)
--- NOTE | 2018-07-04 10:17 | NURSING ---
IV infiltrated with Cipro infusing. this RN spoke with pharmacy and no treated is needed for the infiltration site. IV removed. this RN spoke with MD who stated this RN does not need to place a new IV.
[2018-07-04 10:34] VITALS: BP 155/82; PULSE 67
--- NOTE | 2018-07-04 10:43 | DCINST_ITS ---
- Discharge Diagnoses Current Active Problems: Current Active and Chronic Problems (Last Reviewed 02/03/18 @ 09:20 by Meghan Zaragoza) Acute hemorrhagic colitis (Acute) Reason(s) for Visit for Discharge Instructions: Abdominal pain, GI bleed You will use the following diet at home:: Cardiac Your food should be the consistency of: Regular - low fiber diet Your liquids should be the consistency of: Regular/Thin Discharge Activity: Return to Normal Activity Additional Instructions: Continue on a low fiber diet. Continue to maintain hand hygiene. Follow-up with Dr. Baires in 2-3 weeks. Come back to the ED if you notice profuse bleeding per rectum. Take note of your medications. Allergies/Adverse Reactions: Allergies JOE Inhibitors Allergy (Verified 07/02/18 16:27) Rash Penicillins Allergy (Verified 07/02/18 16:27) Rash gabapentin [From Neurontin] Adverse Reaction (Verified 07/02/18 16:27) Swelling oxycodone HCl [From Percocet] Adverse Reaction (Verified 07/02/18 16:27) Nausea tramadol Adverse Reaction (Verified 07/02/18 16:27) Nausea Medications to take at Discharge Vit A/Vit C/Vit E/Zinc/Copper [Preservision Areds Softgel] 1 ea PO DAILY 06/30/14 Losartan Potassium [Cozaar] 100 mg PO DAILY 04/02/16 hydroCHLOROthiazide [Hydrochlorothiazide] 12.5 mg PO DAILY 04/02/16 Diltiazem HCl [Diltiazem 24Hr Cd] 240 mg PO DAILY 07/02/18 Ciprofloxacin [Cipro] 500 mg PO BID #14 tablet 07/04/18 Metronidazole [Flagyl] 500 mg PO TID #21 tablet 07/04/18 Pantoprazole Sodium [Protonix] 40 mg PO BID #60 tablet 07/04/18 Potassium Chloride [K-Dur] 20 meq PO DAILY #30 tablet 07/04/18 The following prescriptions were given: Potassium Chloride [K-Dur] 20 meq PO DAILY #30 tablet Ciprofloxacin [Cipro] 500 mg PO BID #14 tablet Metronidazole [Flagyl] 500 mg PO TID #21 tablet Orders to be completed after discharge: Basic Metabolic Profile (BMP) Time Frame: 3 Days, Location: Laboratory Primary Care Physician: Clarke Murphy DO [Primary Care Provider] - Please follow up with your Primary Care Physician in: in 1-2 weeks Test Results: Test results from this visit will be discussed in further detail at your follow- up appointment, if applicable. Please Follow Up With: Amy Redd MD When: in 2-3 weeks Proposed Discharge Date: 07/04/18
--- NOTE | 2018-07-04 10:45 | DS.PCM_ITS ---
Discharge Date and Diagnosis Date of Admission: 07/02/18 Date of Discharge: 07/04/18 - Primary Discharge Diagnosis Active and Suspected Problems (Last Reviewed 02/03/18 @ 09:20 by Meghan Zaragoza) GI bleed (Acute) Suspected ischemic colitis Infectious diarrhea ruled out Hypokalemia - Secondary Discharge Diagnosis Chronic Problems (Last Reviewed 02/03/18 @ 09:20 by Meghan Zaragoza) Hypertension (Chronic) Hospital Course and Treatment Imaging Results: Clinical Impression(s) from Imaging Studies Abdomen/Pelvis CT 07/02/18 19:30 IMPRESSION: Findings consistent with acute nonspecific colitis with primary involvement of the ascending and proximal to mid transverse colon with small amount of fluid in the right paracolic gutter Status post hysterectomy. 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 Clinical correlation is recommended Electronically Signed: Giovani Jimenez MD at 20:42 EST , Service support , General surgery Operations: None Procedures: None Summary of Care Provided: 83-year-old past medical history of hypertension who comes in with complaints of diarrhea with hematochezia. CT scan of the abdomen and pelvis that showed colitis of the ascending and proximal to mid transverse colon. General surgery was consulted. 1. Acute GI bleed secondary to suspected ischemic colitis, count of the abdomen and pelvis showed involvement of the ascending and proximal to mid transverse colon Infectious etiology was ruled out with C. difficile negative, stool lactoferrin negative, enteric panel negative Managed on IV Cipro and Flagyl. Charge to complete 1 more week of antibiotics 3. Hypertension, slightly uncontrolled, maintained on her home blood pressure medications 4. CKD stage 3, stable 5. Osteoarthritis, on ibuprofen, will not recommend continuing in light of GI bleed Subjective: On the day of discharge, patient was seen and examined. She felt improved. Had noted only some slight bleeding with bowel movements Objective: General: Alert, Oriented x3, Cooperative, No apparent distress HEENT: Atraumatic, PERRLA, EOMI, Normocephalic Oral: Moist Mucosa Neck: Supple, No JVD, Negative Carotid Bruits Lungs: Clear to auscultation, Normal air movement Cardiovascular: Regular rate, Regular Rhythm, Normal S1, Normal S2, No murmurs Abdomen: Bowel Sounds Present, Soft, Non Tender, Non-Distended, No Hepato- splenomegaly Extremities: No edema Skin: No rashes, No breakdown Musculoskeletal: No Tenderness to Palpation of Joints or Extremities Lymphatic: No Cervical, Supraclavicular, or Inguinal Adenopathy Neurological: Cranial nerves II-XII grossly intact, Neuro grossly intact Psych/Mental Status: Normal Affect, Appropriate - Physical Exam Vital Signs Temp Pulse Resp BP Pulse Ox 98.5 F 67 14 155/82 H 92 07/04/18 08:55 07/04/18 10:34 07/04/18 08:55 07/04/18 10:34 07/04/18 08:55 Oxygen Delivery Method Room Air Weight: 67.6 kg Body Mass Index (BMI) 28.1 Intake and Output for Last 24 Hours 07/02/18 07/03/18 07/04/18 23:59 23:59 23:59 Intake Total 345 / 345 2197 / 2197 407 / 407 Output Total 875 / 875 400 / 400 Balance 345 / 345 1322 / 1322 7 / 7 Microbiology Past 72 Hours 07/03/18 05:40 Enteric Bacteriology - Final Stool 07/03/18 05:40 C. difficile DNA Amplification - Final Stool 07/03/18 05:40 Stool Lactoferrin - Final Stool 07/02/18 17:20 Stool Occult Blood (SHAKILA) - Final Stool Laboratory Tests Past 24 Hrs 07/04/18 07/04/18 05:40 05:40 WBC 6.6 RBC 4.17 L Hgb 11.9 L Hct 37.3 MCV 89.4 MCH 28.5 MCHC 31.9 L RDW 13.3 RDW Differential 43.4 Plt Count 156 MPV 9.5 Immature Gran % (Auto) 0.200 Neut % (Auto) 63.2 Lymph % (Auto) 23.9 [place] % (Auto) 6.8 Eos % (Auto) 5.6 H Baso % (Auto) 0.3 Absolute Neuts (auto) 4.2 Absolute Lymphs (auto) 1.59 Total Counted Not Reportable Sodium 144 Potassium 4.0 Chloride 110 H Carbon Dioxide 27.0 Anion Gap 7 BUN 12 Creatinine 0.96 Estim Creat Clear Calc 34.09 Est GFR (MDRD) Af Amer 72 Est GFR (MDRD) Non-Af 59 L BUN/Creatinine Ratio 12.5 Glucose 97 Calcium 8.7 Discharge Diet: Low fat/ Low Cholesterol, 2000 mg Sodium Diet, - - Low fiber diet Discharge Activity: Return to Normal Activity Home Medications: Medications to take at Discharge Vit A/Vit C/Vit E/Zinc/Copper [Preservision Areds Softgel] 1 ea PO DAILY 06/30/14 Losartan Potassium [Cozaar] 100 mg PO DAILY 04/02/16 hydroCHLOROthiazide [Hydrochlorothiazide] 12.5 mg PO DAILY 04/02/16 Diltiazem HCl [Diltiazem 24Hr Cd] 240 mg PO DAILY 07/02/18 Ciprofloxacin [Cipro] 500 mg PO BID #14 tablet 07/04/18 Metronidazole [Flagyl] 500 mg PO TID #21 tablet 07/04/18 Pantoprazole Sodium [Protonix] 40 mg PO BID #60 tablet 07/04/18 Potassium Chloride [K-Dur] 20 meq PO DAILY #30 tablet 07/04/18 Following Prescrptions Were Given to Patient: Potassium Chloride [K-Dur] 20 meq PO DAILY #30 tablet Ciprofloxacin [Cipro] 500 mg PO BID #14 tablet Pantoprazole Sodium [Protonix] 40 mg PO BID #60 tablet Metronidazole [Flagyl] 500 mg PO TID #21 tablet Other Amb Orders: Basic Metabolic Profile (BMP) Time Frame: 3 Days, Location: Laboratory Primary Care Physician: Clarke Murphy DO [Primary Care Provider] - Please follow up with your Primary Care Physician in: in 1-2 weeks Please Follow Up With: Amy Redd MD When: in 2-3 weeks Disposition: Home Minutes spent on discharge:: 40 Patient Condition:: Stable Medical Necessity - Tobacco Use Smoking Status: Never smoker Tobacco Use: Non-smoker Meaningful Use Info Meaningful Use Diagnoses (Choose all that apply): None applicable Code Visit Inpatient E&M: 25563 Disch Hosp
[2018-07-04] MEDS: hydroCHLOROthiazide 12.5mg 12.5 MG PO (11:19)
[2018-07-07 10:40] LABS: Giardia Lamblia, Stool EIA Negative (Negative)
--- OUTSIDE RECORDS SUMMARY | 2018-08-18 22:32 | XMS RPT_ITS ---
:1935 Author Organization [place] Support Name Relationship Address Phone BILL LEO Unavailable [address] + [place] [address] R Unavailable Unavailable Unavailable BILL LEO Unavailable [address] + [place] [address] R Unavailable Unavailable Unavailable BILL LEO Unavailable [address] + [place] [address] R Unavailable Unavailable Unavailable BILL LEO Unavailable [address] + [place] [address] R Unavailable Unavailable Unavailable BILL LEO Unavailable [address] + [place] [address] R Unavailable Unavailable Unavailable BILL LEO Unavailable [address] + [place] [address] R Unavailable Unavailable Unavailable BILL LEO Unavailable [address] + [place] [address] R Unavailable Unavailable Unavailable BILL LEO Unavailable [address] + [place] [address] R Unavailable Unavailable Unavailable BILL LEO Unavailable [address] + [place] [address] R Unavailable Unavailable Unavailable BILL LEO Unavailable [address] + [place] [address] R Unavailable Unavailable Unavailable BILL LEO Unavailable [address] + [place] [address] R Unavailable Unavailable Unavailable BILL LEO Unavailable [address] + [place] [address] R Unavailable Unavailable Unavailable BILL LEO Unavailable [address] + [place] [address] R Unavailable Unavailable Unavailable BILL LEO Unavailable [address] + [place] [address] R Unavailable Unavailable Unavailable BILL LEO Unavailable [address] + [place] [address] R Unavailable Unavailable Unavailable BILL LEO Unavailable [address] + [place] [address] R Unavailable Unavailable Unavailable Care Team Providers Name Role Phone CLARKE HUITRON Attending Unavailable MAGDA FLEMING) Referring Unavailable Huitron, Clarke Primary Care Unavailable Agyepong, Ottoniel Admitting Unavailable AgyepongOttoniel Referring Unavailable Paintsil, Gilead Attending Unavailable Robotham, Amy Consulting Unavailable AgyepongOttoniel Admitting Unavailable AgyepongOttoniel Attending Unavailable AgyepongOttoniel Referring Unavailable Huitron, Clarke Primary Care Unavailable Robotham, Amy Consulting Unavailable Paintsil, Gilead Consulting Unavailable AgyeOttoniel earl Admitting Unavailable Paintsil, Gilead Attending Unavailable Ottoniel Zepeda Referring Unavailable Huitron, Clarke Primary Care Unavailable Robotham, Amy Consulting Unavailable Paintsil, Gilead Consulting Unavailable AgyepongOttoniel Admitting Unavailable Robotham, Amy Attending Unavailable AgapollogOttoniel Referring Unavailable Huitron, Clarke Primary Care Unavailable Robotham, Amy Consulting Unavailable Paintsil, Gilead Consulting Unavailable AgyepongOttoniel Admitting Unavailable Paintsil, Gilead Attending Unavailable AgyepongOttoniel Referring Unavailable Huitron, Clarke Primary Care Unavailable Robotham, Amy Consulting Unavailable Paintsil, Gilead Consulting Unavailable Paintsil, Gilead Attending Unavailable Paintsil, Gilead Referring Unavailable Huitron, Clarke Primary Care Unavailable Agyepong, Ottoniel Admitting Unavailable Robotham, Amy Attending Unavailable AgapollogOttoniel Referring Unavailable Huitron, Clarke Primary Care Unavailable Robotham, Amy Consulting Unavailable Paintsil, Gilead Consulting Unavailable Huitron, Clarke Attending Unavailable Huitron, Clarke Referring Unavailable Huitron, Clarke Primary Care Unavailable Huitron, Clarke Attending Unavailable Huitron, Clarke Referring Unavailable Huitron, Clarke Primary Care Unavailable Robotham, Amy Attending Unavailable Huitron, Clarke Referring Unavailable Rakesh Garcia Attending Unavailable Huitron, Clarke Referring Unavailable Huitron, Clarke Primary Care Unavailable Rakesh Gacria Attending Unavailable Rakesh Garcia Referring Unavailable Huitron, Clarke Primary Care Unavailable Mukund MORROW, Hayley Attending Unavailable Huitron, Clarke Referring Unavailable Huitron, Clarke Primary Care Unavailable Rakesh Garcia Attending Unavailable Rakesh Garcia Referring Unavailable Huitron, Clarke Primary Care Unavailable Rakesh Garcia Consulting Unavailable Mukund MORROW, Hayley Attending Unavailable Huitron, Clarke Referring Unavailable Huitron, Clarke Primary Care Unavailable Gordon Talleyl Attending Unavailable Rakesh Garcia Referring Unavailable PROBLEMS PROBLEMS DATE TYPE CONDITION / CODE ATTENDING STATUS SOURCE 07/16/2018 Unknown 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, 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 / [facility] D50.8(ICD-10) Hospital Repository 07/18/2018 Unknown K52.9 - Noninfective Paintsil, Gilead Active [facility] gastroenteritis and Community colitis, unspecified / Hospital K52.9(ICD-10) Repository 04/10/2018 Unknown G56.01 - Carpal tunnel Cebul Rakesh Active [facility] syndrome, right upper Community limb / G56.01(ICD-10) Hospital Repository 03/05/2018 Unknown R94.31 - Abnormal Mayank, [place] Active [facility] electrocardiogram Community [ECG] [EKG] / Hospital R94.31(ICD-10) Repository 03/05/2018 Unknown R00.1 - Bradycardia, Mayank, [place] Active [facility] unspecified / Community R00.1(ICD-10) Hospital Repository 03/05/2018 Unknown I10 - Essential Mayank, Maury Active [facility] (primary) hypertension Community / I10(ICD-10) Hospital Repository PROCEDURES PROCEDURES No Procedure Records FoundRESULTS RESULTS CNCO Observed: 08/11/2018 Status: COMPLETED Source: LANE 12:00 AM [facility] REPOSITORY Letter Text Clarke Huitron D.O. [address] [place], [place] [address] Rosie Leo [address] [place] [id number] [facility] #: [id number] 08/11/2018 Dear Ms. Leo, I have received the results of your recent tests. Please inform patient that her labs from June were stable. Hemoglobin was 13.3 ? Clarke Huitron, DO ? We can discuss this at your next visit. Please do not hesitate to contact me with any questions. Sincerely, Clarke Huitron D.O. electronically signed to expedite mailing SURGERY VISIT REPORT Observed: 07/24/2018 Status: F Source: ONG 8:57 AM [facility] REPOSITORY [facility] [address] [place] [address] OFFICE VISIT Date of Service: 07/23/18 MR#: [id number] Acct: [id number] Name: ROSIE LEO Rep #: [id number] : 1935 Provider: Amy Redd MD Age/Sex: 83/F Location: [facility] Status: Signed Intake Vital Signs07/23/18 Body Mass Index (BMI) 28.1 Intake Visit Reasons: F/U HOSPITAL/GI BLEED Chief Complaint: GI Bleed Heel Varnisher Required: No Allergies KWAN Inhibitors Allergy (Verified 07/23/18 12:55) Rash Penicillins Allergy (Verified 07/23/18 12:55) Rash gabapentin [From Neurontin] Adverse Reaction (Verified 07/23/18 12:55) Swelling oxycodone HCl [From Percocet] Adverse Reaction (Verified 07/23/18 12:55) Nausea tramadol Adverse Reaction (Verified 07/23/18 12:55) Nausea Medications Vit A/Vit C/Vit E/Zinc/Copper [Preservision Areds Softgel] 1 ea PO DAILY 06/30/14 [History Confirmed 07/23/18] Losartan Potassium [Cozaar] 100 mg PO DAILY 04/02/16 [History Confirmed 07/23/18] hydroCHLOROthiazide [Hydrochlorothiazide] 12.5 mg PO DAILY 04/02/16 [History Confirmed 07/23/18] Diltiazem HCl [Diltiazem 24Hr Cd] 240 mg PO DAILY 07/02/18 [History Confirmed 07/23/18] Pantoprazole Sodium [Protonix] 40 mg PO BID #60 tab 07/04/18 [Rx Confirmed 07/23/18] Potassium Chloride [K-Dur] 20 meq PO DAILY #30 tab 07/04/18 [Rx Confirmed 07/23/18] Is last menstrual period known: No Post menopausal: Yes Patient : No PFSH Medical History Carpal tunnel syndrome of right wrist (Inactive) Vertigo (Inactive) Nausea and vomiting (Resolved) Hypertension (Chronic) Carpal tunnel syndrome of left wrist (Inactive) Surgical History History of hysterectomy (Acute) History of thyroid surgery (Acute) History of tubal ligation (Acute) Status post carpal tunnel release (Acute 01/2018) Family History Father Asthma Heart disease Hypertension Mother Breast cancer Sister Breast cancer Social History Smoking Status: Never smoker alcohol intake: never substance use type: does not use HPI HPI HPI: ROSIE LEO, is a 83 F who presents to the office today for follow-up from hospitalization for colitis of the ascending and transverse colon seen on CT along with some bright red blood per rectum. Patient states that since she left the hospital she has not had any further blood in her stools and her bowel movements have been normal. Patient denies any abdominal pain. Patient was sent out on Cipro Flagyl for 1 week when she left the hospital. She has been on a low fiber diet. Patient has never had a colonoscopy ROS Cardio Cardiovascular: No chest pain Gastro Gastrointestinal: No abdominal pain, No nausea or vomiting, No diarrhea, No constipation, No blood in stool, No black,tarry stools Exam Const General: cooperative, comfortable, no acute distress Resp Effort AND Inspection: normal respiratory effort Cardio Rate: regular rate GI Inspection: non-distended Palpation: soft, no guarding, nontender, no hernias Assessment AND Plan Problems 1. Abnormal CT scan, colon R93.3 2. Colitis K52.9 3. Blood per rectum K62.5 Plan Discussed with patient had one plan for her to transition to a more regular diet. And still allow her colon time to heal before planning to do colonoscopy. Patient was agreeable to plan. We will follow-up in 4 weeks and discuss colonoscopy further. Amy Redd M.D. Pager: [phone] [facility] [address] [place] [address], [facility], [address] [place] [address] Office: [phone] Plan Detail Follow Up 4weeks Coding Level of Care Code Off vis,est,level [address] scan, colon R93.3 Colitis K52.9 Blood per rectum K62.5 07/24/18 0857 <Electronically signed by Amy Redd MD> Date Amy Redd MD Cosigner Signature: Date (if applicable) CC: Clarke Joshi, CBC-COMPLETE BLOOD CNT Collected: 07/17/2018 Status: F Source: [place] NO DIFF 12:33 PM [facility] REPOSITORY TYPE CODE TESTS RESULT OUT OF RANGE REFERENCE UNITS LAB L100.1000 4.4-11.0 K/mm3 Normal WBC 7.0 LAB L100.1200 4.2-5.4 M/mm3 Normal RBC 4.63 LAB L100.1300 12.0-15.0 g/dl Normal HGB 13.3 LAB L100.1400 37-47 % Normal HCT 41.5 LAB L100.1500 81-99 fL Normal MCV 89.6 LAB L100.1600 27.0-32.0 pg Normal MCH 28.7 LAB L100.1700 32-36 g/gl Normal MCHC 32.0 LAB L100.1810 11.6-14.6 % Normal RDW CV 13.6 LAB L100.1820 35.1-43.9 fl High RDW SD 44.9 LAB L100.1900 150-450 K/mm3 Normal PLT 203 LAB L100.2000 6.2-12.0 fl Normal MPV 9.6 Performed By: #### L100.0500 #### [facility] [address] [place], [place], [address] BASIC METABOLIC Collected: 07/16/2018 Status: F Source: [place] PROFILE (BMP) 10:14 AM [facility] REPOSITORY TYPE CODE TESTS RESULT OUT OF RANGE REFERENCE UNITS LAB L501.0100 74-106 mg/dL High GLU 120 Result Comment: Fasting Glucose result from 100 to 125 mg/dL suggests IMPAIRED HOMEOSTASIS per A.D.A. criteria. Please note revised GLUCOSE reference range effective 2017. LAB L501.1000 7-18 mg/dL High BUN 25 LAB L501.1100 0.55-1.02 mg/dL High CREAT,SERUM 1.23 Result Comment: The validity of the calculated GFR AND GFRAA in patients over 70 years has not been determined. Clinical correlation is essential. LAB L501.1110 >60 mL/min Low EST GFR 44 Result Comment: Non- GFR Calc LAB L501.1115 >60 mL/min Low EST GFR - AA 54 Result Comment: GFR Calc LAB L501.1300 10-20 RATIO High BUN/CRE 20.3 LAB L501.2200 8.5-10.1 mg/dL CA Normal 8.9 LAB L501.5300 136-145 mmol/L NA Normal 143 LAB L501.5600 3.5-5.1 mmol/L Low K 3.4 LAB L501.5900 98-107 mmol/L High CL 109 LAB L501.6100 21.0-32.0 mmol/L Normal CO2 28.0 LAB L501.6200 5-15 Normal GAP 6 Performed By: #### L500.2500 #### [facility] [address] [place] [address]. [place], [place], [id number] PROGRESS Observed: 07/08/2018 Status: COMPLETED Source: LANE 9:39 AM [facility] REPOSITORY O ID: [id number] Author: Clarke Huitron Service: (none) Author Type: Physician Type: Progress Notes Filed: 07/08/2018 9:43 AM Note Text: CC: Rosie Leo is a 83 year old female who presents to the office for hospital follow up HPI: Patient seen on 07/02 for acute onset of blood bright red colored diarrhea, multiple episodes, presented to [facility] for these symptoms and was found to have hypokalemia, slight prolongation of QTc as well as CT abd/pelvis which showed proximal and transverse colon colitis, likely secondary to ischemia, since infectious symptoms were ruled out and negative. She was seen by general surgeon and had potassium replaced by IV and currently on 20 meq bid potassium chloride tablets but is having trouble swallowing these, asking for alternative, still some fatigue symptoms. Is set up to follow up with general surgeon on 07/24/18 for colonoscopy Otherwise doing okay PAST MEDICAL HISTORY Diagnosis Date - CKD stage G3b/A1, GFR 30-44 and albumin creatinine ratio <30 mg/g (HCC) - DDD (degenerative disc disease), lumbar Dr. Solorio Pain mgmt - Impaired fasting glucose 11/30/13 a1c 6.2% - Macular degeneration wet type, getting shots in eyes, improved. - Osteopenia 2004 on calcium / vitamin D - Pure hypercholesterolemia - Unspecified essential hypertension PAST SURGICAL HISTORY Procedure Laterality Date - LAMINECTOMY,LUMBAR for spinal stenosis - PAST SURGICAL HISTORY OF left ovary cyst removed per pt. - PAST SURGICAL HISTORY OF 06/11/16 caudal epidural steroid injection - PAST SURGICAL HISTORY OF Left 07/10/2017 Carpal Tunnel Release; Dr. Jaden Garcia - SLING OPER STRES INCONTINENCE 2013 [facility] - STEREO LOC FOR CORE BRST BX LT 07-21-09 - STEREO LOC FOR CORE BRST BX RT 07-21-09 - THYROID 1960 cystectomy - VAGINAL HYSTERECTOMY 2013 calls anterior repair Current Outpatient Prescriptions: ciprofloxacin HCl (CIPRO) 500 mg tablet Take 500 mg by mouth twice daily. diltiazem XR (DILACOR XR) 240 mg 24 hr capsule Take 1 capsule by mouth once daily. Hydrochlorothiazide 12.5 mg capsule Take 1 capsule by mouth once daily. ibuprofen (MOTRIN) 200 mg tablet Take 1-2 tablets by mouth every 6 hours as needed for Pain (Take with food.). losartan (COZAAR) 100 mg tablet Take 1 tablet by mouth once daily. metroNIDAZOLE (FLAGYL) 500 mg tablet Take 500 mg by mouth three times daily. OTC PRODUCT Perservision Eye Vitamin, Pt takes one tablet daily pantoprazole DR (PROTONIX) 40 mg tablet Take 40 mg by mouth once daily. aspirin, enteric coated (ASPIRIN, ENTERIC COATED) 81 mg EC tablet Take 81 mg by mouth once daily. HYDROcodone-acetaminophen (NORCO) 5-325 mg per tablet Take 0.5 tablets by mouth twice daily as needed for Pain. PER DR. MENDOZA potassium chloride 20 mEq/15 mL solution Take 15 mL by mouth twice daily. No current facility-administered medications for this visit. ALLERGIES Allergen Reactions - Kwan Inhibitors - Flexeril [Cyclobenz* Mental Status Change drowsiness - Penicillins - Percocet [Oxycodone* GI Upset - Vicodin [Hydrocodon* GI Upset Social History Marital status: Spouse name: Sulaiman Years of education: Number of children: 4 Occupational History Occupation Employer Comment Retired Social History Main Topics Smoking status: Never Smoker Smokeless tobacco: Never Used Alcohol use: No Drug use: No Sexual activity: Not Currently Social History Narrative (aug 2013, of lung [place] on hospice), has 4 grown children- all sons (2nd son is of colon cancer 2011) ROS: See HPI PE: BP 118/80 Pulse 64 Temp (Src) 98 (Left Tympanic) Resp 20 Wt 147 lb (66.7kg) Gen: AANDOX3, NAD, non-toxic appearing HEENT: PERRLA, EOMs intact b/l, nares without drainage, pharynx without erythema, exudate, lesions, or drainage. Uvula midline. Neck: No LAD, no thyromegaly, no meningismus. CV: RRR, no murmur Lungs: CTA b/l, no wheezing Abd: NT, ND, normal BS Skin: No rashes, lesions, or wounds on exposed skin. No edema ASSESSMENT/PLAN: 1. Acute colitis - ICD9: 558.9, ICD10: K52.9 (primary diagnosis) - f/u with general surgeon as scheduled, concerns for ischemic cause 2. Hypokalemia - ICD9: 276.8, ICD10: E87.6 - replace K by liquid or packet due to not able to swallow tablets well. Recheck labs next week - POTASSIUM CHLORIDE 20 MEQ/15 ML ORAL LIQUID - BASIC METABOLIC PNL 3. Other iron deficiency anemia - ICD9: 280.8, ICD10: D50.8 - see above, secondary to colitis - CBC Clarke Huitron DO Return if no improvement. Follow up with Clarke Huitron DO. Discussed risks, benefits, alternatives, and potential side effects of medications. Patient/Guardian expressed understanding and agreed with the plan. See patient instructions. Clarke Huitron DO [address] [place] [address] CNOV Observed: 07/08/2018 Status: COMPLETED Source: [place] 8:20 AM [facility] REPOSITORY Office Visit (FAMPWS) ROSIE LEO ([id number]) 1935 F Date Time Provider Department 07/08/18 8:20 AM CLARKE HUITRON During your visit today, we recorded the following information about you: Temperature Pulse Respiration Blood pressure 98 degrees 64/minute 20/minute 118/80 Weight 66.7 kg Clarke Huitron DO 07/08/2018 9:43 AM Signed CC: Rosie Leo is a 83 year old female who presents to the office for hospital follow up HPI: Patient seen on 07/02 for acute onset of blood bright red colored diarrhea, multiple episodes, presented to [facility] for these symptoms and was found to have hypokalemia, slight prolongation of QTc as well as CT abd/pelvis which showed proximal and transverse colon colitis, likely secondary to ischemia, since infectious symptoms were ruled out and negative. She was seen by general surgeon and had potassium replaced by IV and currently on 20 meq bid potassium chloride tablets but is having trouble swallowing these, asking for alternative, still some fatigue symptoms. Is set up to follow up with general surgeon on 07/24/18 for colonoscopy Otherwise doing okay PAST MEDICAL HISTORY Diagnosis Date - CKD stage G3b/A1, GFR 30-44 and albumin creatinine ratio <30 mg/g ([facility]) - DDD (degenerative disc disease), lumbar Dr. Solorio Pain mgmt - Impaired fasting glucose 11/30/13 a1c 6.2% - Macular degeneration wet type, getting shots in eyes, improved. - Osteopenia 2004 on calcium / vitamin D - Pure hypercholesterolemia - Unspecified essential hypertension PAST SURGICAL HISTORY Procedure Laterality Date - LAMINECTOMY,LUMBAR for spinal stenosis - PAST SURGICAL HISTORY OF left ovary cyst removed per pt. - PAST SURGICAL HISTORY OF 06/11/16 caudal epidural steroid injection - PAST SURGICAL HISTORY OF Left 07/10/2017 Carpal Tunnel Release; Dr. Jaden Garcia - SLING OPER STRES INCONTINENCE 2013 [facility] - STEREO LOC FOR CORE BRST BX LT 07-21-09 - STEREO LOC FOR CORE BRST BX RT 07-21-09 - THYROID 1960 cystectomy - VAGINAL HYSTERECTOMY 2013 calls anterior repair Current Outpatient Prescriptions: ciprofloxacin HCl (CIPRO) 500 mg tablet Take 500 mg by mouth twice daily. diltiazem XR (DILACOR XR) 240 mg 24 hr capsule Take 1 capsule by mouth once daily. Hydrochlorothiazide 12.5 mg capsule Take 1 capsule by mouth once daily. ibuprofen (MOTRIN) 200 mg tablet Take 1-2 tablets by mouth every 6 hours as needed for Pain (Take with food.). losartan (COZAAR) 100 mg tablet Take 1 tablet by mouth once daily. metroNIDAZOLE (FLAGYL) 500 mg tablet Take 500 mg by mouth three times daily. OTC PRODUCT Perservision Eye Vitamin, Pt takes one tablet daily pantoprazole DR (PROTONIX) 40 mg tablet Take 40 mg by mouth once daily. aspirin, enteric coated (ASPIRIN, ENTERIC COATED) 81 mg EC tablet Take 81 mg by mouth once daily. HYDROcodone-acetaminophen (NORCO) 5-325 mg per tablet Take 0.5 tablets by mouth twice daily as needed for Pain. PER DR. MENDOZA potassium chloride 20 mEq/15 mL solution Take 15 mL by mouth twice daily. No current facility-administered medications for this visit. ALLERGIES Allergen Reactions - Kwan Inhibitors - Flexeril [Cyclobenz* Mental Status Change drowsiness - Penicillins - Percocet [Oxycodone* GI Upset - Vicodin [Hydrocodon* GI Upset Social History Marital status: Spouse name: Sulaiman Years of education: Number of children: 4 Occupational History Occupation Employer Comment Retired Social History Main Topics Smoking status: Never Smoker Smokeless tobacco: Never Used Alcohol use: No Drug use: No Sexual activity: Not Currently Social History Narrative (aug 2013, of lung [place] on hospice), has 4 grown children- all sons (2nd son is of colon cancer 2011) ROS: See HPI PE: BP 118/80 Pulse 64 Temp (Src) 98 (Left Tympanic) Resp 20 Wt 147 lb (66.7kg) Gen: AANDOX3, NAD, non-toxic appearing HEENT: PERRLA, EOMs intact b/l, nares without drainage, pharynx without erythema, exudate, lesions, or drainage. Uvula midline. Neck: No LAD, no thyromegaly, no meningismus. CV: RRR, no murmur Lungs: CTA b/l, no wheezing Abd: NT, ND, normal BS Skin: No rashes, lesions, or wounds on exposed skin. No edema ASSESSMENT/PLAN: 1. Acute colitis - ICD9: 558.9, ICD10: K52.9 (primary diagnosis) - f/u with general surgeon as scheduled, concerns for ischemic cause 2. Hypokalemia - ICD9: 276.8, ICD10: E87.6 - replace K by liquid or packet due to not able to swallow tablets well. Recheck labs next week - POTASSIUM CHLORIDE 20 MEQ/15 ML ORAL LIQUID - BASIC METABOLIC PNL 3. Other iron deficiency anemia - ICD9: 280.8, ICD10: D50.8 - see above, secondary to colitis - CBC Clarke Huitron DO Return if no improvement. Follow up with Clarke Huitron DO. Discussed risks, benefits, alternatives, and potential side effects of medications. Patient/Guardian expressed understanding and agreed with the plan. See patient instructions. Calrke Huitron DO [address] [place] [address] Referring Provider: MAGDA FLEMING) [[id number]] Allergies As of Date: 07/08/2018 Noted Allergy Reaction KWAN INHIBITORS 06/26/2005 FLEXERIL (CYCLOBENZAPRINE HCL) 02/13/2011 1 - Mental Status Change Comments: drowsiness PENICILLINS 06/26/2005 PERCOCET (OXYCODONE-ACETAMINOPHEN)05/04/2014 8 - GI Upset VICODIN (HYDROCODONE-ACETAMINOPHE*05/04/2014 8 - GI Upset Date Reviewed: 07/08/2018 Reviewed by: Nayeli Jane LPN - Fully Assessed Reason for Visit: Hospital F/U [57] Cmt: GI bleed, Ischemic colitis Primary Visit Diagnosis:Acute colitis [K52.9] Other Visit Diagnoses:Hypokalemia [E87.6] Other iron deficiency anemia [D50.8] Order(s):potassium chloride 20 mEq/15 mL solutionTake 15 mL by mouth twice daily.Disp: 600 mLRfl: 1 CBC [SQCBC] Order #: [id number] FUTURE BASIC METABOLIC PNL [SQP] Order #: [id number] FUTURE Prescriptions as of 07/08/2018 Sig: CIPROFLOXACIN 500 MG TABLET Take 500 mg by mouth twice da* DILTIAZEM XR 240 MG CAP Take 1 capsule by mouth once * HYDROCHLOROTHIAZIDE 12.5 MG C* Take 1 capsule by mouth once * IBUPROFEN 200 MG TABLET Take 1-2 tablets by mouth cynthia* LOSARTAN 100 MG TABLET Take 1 tablet by mouth once d* METRONIDAZOLE 500 MG TABLET Take 500 mg by mouth three ti* OTC PRODUCT Perservision Eye Vitamin, Pt * PANTOPRAZOLE 40 MG TABLET,DEL* Take 40 mg by mouth once shayla* ASPIRIN 81 MG TABLET,DELAYED * Take 81 mg by mouth once shayla* HYDROCODONE 5 MG-ACETAMINOPHE* Take 0.5 tablets by mouth twi* POTASSIUM CHLORIDE 20 MEQ/15 * Take 15 mL by mouth twice brenna* Medication notes this encounter ASPIRIN 81 MG TABLET,DELAYED RELEASE >> Nayeli Jane LPN 07/08/2018 8:21 AM >> NAYELI JANE LPN SatJul 08, 2018 8:21 AM Finished HYDROCODONE 5 MG-ACETAMINOPHEN 325 MG TABLET >> Nayeli Jane LPN 07/08/2018 8:21 AM >> NAYELI JANE LPN josé miguel Jul 08, 2018 8:21 AM Finished Problem List As Of Date 07/08/2018 Noted Resolved Pure hypercholesterolemia [E78.00] Unspecified essential hypertension [I10] Generalized osteoarthrosis, unspecified site [M*INVALID FOR* Disturbance of skin sensation [R20.9] INVALID FOR* Lumbago [M54.5] INVALID FOR* Abnormal mammogram, unspecified [R92.8] INVALID FOR* 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 pylori infection [A04.8] INVALID FOR* C. difficile diarrhea [A04.72] INVALID FOR* Prescriptions ordered this encounter Disp Refills Start End POTASSIUM CHLORIDE 20 MEQ/15 ML ORAL* 600 * 1 07/08/2018 Route: ORAL Sig: Take 15 mL by mouth twice daily. Medications Discontinued During This Encounter potassium chloride (K-TAB) 10 mEq ta* 30 t* 3 01/18/2017 07/08/2018 Route: ORAL Sig: Take 1 tablet by mouth daily with breakfast. Disc: Reason for discontinue is not on file. potassium chloride ER (K-DUR, OSWALDOR-C* 07/08/2018 Class: Historical Med Route: ORAL Sig: Take 20 mEq by mouth twice daily. Disc: Reason for discontinue is not on file. Encounter Status:Closed by CLARKE HUITRON DO on 07/08/18 CONSULTATION Observed: 07/07/2018 Status: F Source: ONG 8:59 PM [facility] REPOSITORY [facility] Medical Records Department [address] [place] [address] Consultation 07/03/18 1223 MR#: [id number] Acct: [id number] Name: ROSIE LEO Rep #: [id number] : 1935 83 From: Amy Redd MD PCP: Clarke Joshi DO Status: DIS IN Y Location: [facility] [id number] Reason for Consult Date of Consultation: 07/03/18 History of Present Illness: The patient is a 83 year old F presented to the ER due to diarrhea with some bright red blood starting yesterday. Patient states in the morning started to have diarrhea may be only a little abdominal cramping with that but by the the afternoon she had diarrhea with some bright red blood. While she has been the hospital she has had some clots with her diarrhea. However her last bowel movement was starting to be more formed with no blood. Patient had CT abdomen pelvis which was consistent with nonspecific colitis of the ascending and transverse colon. Patient's white blood cell count was normal admit with left shift, her white blood cell count this morning had no differential that was also normal. Patient was just started on Cipro Flagyl today. She denies any nausea or vomiting or abdominal pain. Patient has never had a colonoscopy. Past Medical History Past Medical History (Chronic Problems): Chronic Problems (Last Reviewed 02/03/18 @ 09:20 by Meghan Zaragoza) Hypertension (Chronic) Medical History: Medical History (Last Reviewed 02/03/18 @ 09:20 by Meghan Zaragoza) Carpal tunnel syndrome of right wrist (Inactive) G56.01 Vertigo (Inactive) R42 Nausea and vomiting (Resolved) R11.2 Hypertension (Chronic) I10 Carpal tunnel syndrome of left wrist (Inactive) G56.02 Carpal tunnel syndrome of right wrist G56.01 History of hysterectomy Z90.710 Allergies KWAN Inhibitors Allergy (Verified 07/02/18 16:27) Rash Penicillins Allergy (Verified 07/02/18 16:27) Rash gabapentin [From Neurontin] Adverse Reaction (Verified 07/02/18 16:27) Swelling oxycodone HCl [From Percocet] Adverse Reaction (Verified 07/02/18 16:27) Nausea tramadol Adverse Reaction (Verified 07/02/18 16:27) Nausea Home Medications: Ambulatory Orders Medication Instructions Recorded Vit A/Vit C/Vit E/Zinc/Copper 1 ea PO DAILY 06/30/14 [Preservision Areds Softgel] Losartan Potassium [Cozaar] 100 mg PO DAILY 04/02/16 Surgical History: Surgical History (Last Reviewed 07/03/18 @ 02:01 by Ottoniel Zepeda MD) History of carpal tunnel release Z98.890 left History of thyroid surgery Z98.890 Status post carpal tunnel release Onset Date: 01/2018 Z98.890 Surgical History: no surgical history Smoking Status: Never smoker - *Family History Maternal Family History: Family History (Last Reviewed 07/03/18 @ 02:02 by Ottoniel Zepeda MD) Father Asthma Heart disease Hypertension Mother Breast cancer Sister Breast cancer History Items: No pertinent history Review of Systems Constitutional: Denies: Anorexia Eyes: Denies: Blurred vision HEENT: Denies: Difficulty Swallowing Cardiovascular: Denies: Chest Pain Respiratory: Denies: Shortness of Breath Gastrointestinal: Reports: Diarrhea, Hematochezia. Denies: Abdominal Pain Genitourinary: Denies: Dysuria Neurological: Denies: Balance problems Psychiatric: Denies: Anxiety, Depression Hematologic/ Lymphatic: Denies: Easy Bruising - Physical Exam General: Alert, Oriented x3, Cooperative, No apparent distress HEENT: Atraumatic Lungs: Normal air movement Cardiovascular: Regular rate Abdomen: Soft, Non Tender, Non-Distended Extremities: No clubbing, No cyanosis Neurological: Cranial nerves II-XII grossly intact Psych/Mental Status: Normal Affect Vital Signs Temp Pulse Resp BP Pulse Ox 99.1 F 69 18 152/91 H 96 07/03/18 09:21 07/03/18 10:59 07/03/18 09:21 07/03/18 09:21 07/03/18 09:30 Oxygen Delivery Method Room Air Weight: 149 lb 0.52 oz Body Mass Index (BMI) 28.1 Intake and Output for Last 24 Hours Intake Total 345 / 345 468 / 468 Balance 345 / 345 468 / 468 Microbiology Past 72 Hours 07/03/18 05:40 C. difficile DNA Amplification - Final Stool 07/03/18 05:40 Stool Lactoferrin - Final Stool 07/02/18 17:20 Stool Occult Blood (SHAKILA) - Final Stool Laboratory Tests Past 24 Hrs WBC 8.9 RBC 4.48 Hgb 12.8 Hct 40.1 MCV 89.5 Assessment/Plan All Active Problems (Last Reviewed 02/03/18 @ 09:20 by Meghan Zaragoza) Acute hemorrhagic colitis (Acute) Trigger finger (Acute) Nausea and vomiting (Resolved) 83-year-old with questionable ischemic colitis to the right and transverse colon, hematochezia 1. Clears to allow for bowel rest. 2. Cipro/Flagyl IV 3. Patient states her last BM was more formed and she did not see any blood we will continue to monitor. 4. Discussed with patient that if she continues to do well- she can follow-up as an outpatient for a colonoscopy. Amy Redd M.D. Pager: [phone] [facility] [address] [place] [address], [facility], [address] [place] [address] Office: [phone] Code Visit Inpatient E AND M: [id number] Init Hosp L2 07/07/182058 <Electronically signed by Amy Redd MD> Date Amy Redd MD Cosigner Signature (if applicable): Date CC: Clarke Joshi DO; Ottoniel Zepeda MD; Amy Redd MD Signed BASIC METABOLIC Collected: 07/07/2018 Status: F Source: EDGAR PROFILE (BMP) 9:59 AM [facility] REPOSITORY Order Comment: Send Results To: PCP Reason for Laboratory Test Hypokalemia TYPE CODE TESTS RESULT OUT OF RANGE REFERENCE UNITS LAB L501.0100 74-106 mg/dL High GLU 147 Result Comment: Fasting Glucose result greater than or equal to 126 mg/dL suggests DIABETES MELLITUS per A.D.A. criteria. Please note revised GLUCOSE reference range effective 2017. LAB L501.1000 7-18 mg/dL High BUN 29 LAB L501.1100 0.55-1.02 mg/dL High CREAT,SERUM 1.39 Result Comment: The validity of the calculated GFR AND GFRAA in patients over 70 years has not been determined. Clinical correlation is essential. LAB L501.1110 >60 mL/min Low EST GFR 39 Result Comment: Non- GFR Calc LAB L501.1115 >60 mL/min Low EST GFR - AA 47 Result Comment: GFR Calc LAB L501.1300 10-20 RATIO High BUN/CRE 20.9 LAB L501.2200 8.5-10.1 mg/dL CA Normal 9.1 LAB L501.5300 136-145 mmol/L NA Normal 141 LAB L501.5600 3.5-5.1 mmol/L Low K 3.1 LAB L501.5900 98-107 mmol/L High CL 108 LAB L501.6100 21.0-32.0 mmol/L Normal CO2 27.0 LAB L501.6200 5-15 Normal GAP 6 Performed By: #### L500.2500 #### [facility] [address] [facility] [place], [address] DISCHARGE SUMMARY Observed: 07/04/2018 Status: F Source: EDAGR 3:59 PM [facility] REPOSITORY [facility] Medical Records Department [address] [place] [address] Discharge Summary 07/04/18 1045 MR#: [id number] Acct: [id number] Name: ROSIE LEO Rep #: [id number] : 1935 83 From: Amber Tolliver MD PCP: Clarke Joshi DO Status: DIS IN Y [id number] Discharge Date and Diagnosis Date of Admission: 07/02/18 Date of Discharge: 07/04/18 - Primary Discharge Diagnosis Active and Suspected Problems (Last Reviewed 02/03/18 @ 09:20 by Meghan Zaragoza) GI bleed (Acute) Suspected ischemic colitis Infectious diarrhea ruled out Hypokalemia - Secondary Discharge Diagnosis Chronic Problems (Last Reviewed 02/03/18 @ 09:20 by Meghan Zaragoza) Hypertension (Chronic) Hospital Course and Treatment Imaging Results: Clinical Impression(s) from Imaging Studies Abdomen/Pelvis CT 07/02/18 19:30 IMPRESSION: Findings consistent with acute nonspecific colitis with primary involvement of the ascending and proximal to mid transverse colon with small amount of fluid in the right paracolic gutter Status post hysterectomy. 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 Clinical correlation is recommended Electronically Signed: Giovani Jimenez MD at 20:42 EST , Service support , General surgery Operations: None Procedures: None Summary of Care Provided: 83-year-old past medical history of hypertension who comes in with complaints of diarrhea with hematochezia. CT scan of the abdomen and pelvis that showed colitis of the ascending and proximal to mid transverse colon. General surgery was consulted. 1. Acute GI bleed secondary to suspected ischemic colitis, count of the abdomen and pelvis showed involvement of the ascending and proximal to mid transverse colon Infectious etiology was ruled out with C. difficile negative, stool lactoferrin negative, enteric panel negative Managed on IV Cipro and Flagyl. Charge to complete 1 more week of antibiotics 3. Hypertension, slightly uncontrolled, maintained on her home blood pressure medications 4. CKD stage 3, stable 5. Osteoarthritis, on ibuprofen, will not recommend continuing in light of GI bleed Subjective: On the day of discharge, patient was seen and examined. She felt improved. Had noted only some slight bleeding with bowel movements Objective: General: Alert, Oriented x3, Cooperative, No apparent distress HEENT: Atraumatic, PERRLA, EOMI, Normocephalic Oral: Moist Mucosa Neck: Supple, No JVD, Negative Carotid Bruits Lungs: Clear to auscultation, Normal air movement Cardiovascular: Regular rate, Regular Rhythm, Normal S1, Normal S2, No murmurs Abdomen: Bowel Sounds Present, Soft, Non Tender, Non-Distended, No Hepato-splenomegaly Extremities: No edema Skin: No rashes, No breakdown Musculoskeletal: No Tenderness to Palpation of Joints or Extremities Lymphatic: No Cervical, Supraclavicular, or Inguinal Adenopathy Neurological: Cranial nerves II-XII grossly intact, Neuro grossly intact Psych/Mental Status: Normal Affect, Appropriate - Physical Exam Vital Signs Temp Pulse Resp BP Pulse Ox 98.5 F 67 14 155/82 H 92 07/04/18 08:55 07/04/18 10:34 07/04/18 08:55 07/04/18 10:34 07/04/18 08:55 Oxygen Delivery Method Room Air Weight: 67.6 kg Body Mass Index (BMI) 28.1 Intake and Output for Last 24 Hours Intake Total 345 / 345 2197 / 2197 407 / 407 Output Total 875 / 875 400 / 400 Balance 345 / 345 1322 / 1322 7 / 7 Microbiology Past 72 Hours 07/03/18 05:40 Enteric Bacteriology - Final Laboratory Tests Past 24 Hrs WBC 6.6 RBC 4.17 L Hgb 11.9 L Hct 37.3 MCV 89.4 MCH 28.5 MCHC 31.9 L Discharge Diet: Low fat/ Low Cholesterol, 2000 mg Sodium Diet, - - Low fiber diet Discharge Activity: Return to Normal Activity Home Medications: Medications to take at Discharge Vit A/Vit C/Vit E/Zinc/Copper [Preservision Areds Softgel] 1 ea PO DAILY 06/30/14 Losartan Potassium [Cozaar] 100 mg PO DAILY 04/02/16 hydroCHLOROthiazide [Hydrochlorothiazide] 12.5 mg PO DAILY 04/02/16 Diltiazem HCl [Diltiazem 24Hr Cd] 240 mg PO DAILY 07/02/18 Ciprofloxacin [Cipro] 500 mg PO BID #14 tablet 07/04/18 Metronidazole [Flagyl] 500 mg PO TID #21 tablet 07/04/18 Pantoprazole Sodium [Protonix] 40 mg PO BID #60 tablet 07/04/18 Potassium Chloride [K-Dur] 20 meq PO DAILY #30 tablet 07/04/18 Following Prescrptions Were Given to Patient: Potassium Chloride [K-Dur] 20 meq PO DAILY #30 tablet Ciprofloxacin [Cipro] 500 mg PO BID #14 tablet Pantoprazole Sodium [Protonix] 40 mg PO BID #60 tablet Metronidazole [Flagyl] 500 mg PO TID #21 tablet Other Amb Orders: Basic Metabolic Profile (BMP) Time Frame: 3 Days, Location: Laboratory Primary Care Physician: Clarke Huitron DO [Primary Care Provider] - Please follow up with your Primary Care Physician in: in 1- 2 weeks Please Follow Up With: Amy Redd MD When: in 2-3 weeks Disposition: Home Minutes spent on discharge:: 40 Patient Condition:: Stable Medical Necessity - Tobacco Use Smoking Status: Never smoker Tobacco Use: Non-smoker Meaningful Use Info Meaningful Use Diagnoses (Choose all that apply): None applicable Code Visit Inpatient E AND M: [id number] Disch Hosp 07/04/18 1559 <Electronically signed by Amber Tolliver MD> Date Amber Tolliver MD Cosigner Signature (if applicable): Date CC: Amber Tolliver MD; Clarke Joshi DO Signed DISCHARGE INSTRUCTION Observed: 07/04/2018 Status: F Source: ONG 10:45 [facility] REPOSITORY [facility] Medical Records Department [address] [place] [address] Instructions for Home/Discharge Instructions 07/04/18 1037 MR#: [id number] Acct: [id number] Name: ROSIE LEO Rep #: [id number] : 1935 83 From: Amber Tolliver MD PCP: Clarke Joshi DO Status: ADM IN - Discharge Diagnoses Current Active Problems: Current Active and Chronic Problems (Last Reviewed 02/03/18 @ 09:20 by Meghan Zaragoza) Acute hemorrhagic colitis (Acute) Reason(s) for Visit for Discharge Instructions: Abdominal pain, GI bleed You will use the following diet at home:: Cardiac Your food should be the consistency of: Regular - low fiber diet Your liquids should be the consistency of: Regular/Thin Discharge Activity: Return to Normal Activity Additional Instructions: Continue on a low fiber diet. Continue to maintain hand hygiene. Follow-up with Dr. Baires in 2-3 weeks. Come back to the ED if you notice profuse bleeding per rectum. Take note of your medications. Allergies/Adverse Reactions: Allergies KWAN Inhibitors Allergy (Verified 07/02/18 16:27) Rash Penicillins Allergy (Verified 07/02/18 16:27) Rash gabapentin [From Neurontin] Adverse Reaction (Verified 07/02/18 16:27) Swelling oxycodone HCl [From Percocet] Adverse Reaction (Verified 07/02/18 16:27) Nausea tramadol Adverse Reaction (Verified 07/02/18 16:27) Nausea Medications to take at Discharge Vit A/Vit C/Vit E/Zinc/Copper [Preservision Areds Softgel] 1 ea PO DAILY 06/30/14 Losartan Potassium [Cozaar] 100 mg PO DAILY 04/02/16 hydroCHLOROthiazide [Hydrochlorothiazide] 12.5 mg PO DAILY 04/02/16 Diltiazem HCl [Diltiazem 24Hr Cd] 240 mg PO DAILY 07/02/18 Ciprofloxacin [Cipro] 500 mg PO BID #14 tablet 07/04/18 Metronidazole [Flagyl] 500 mg PO TID #21 tablet 07/04/18 Pantoprazole Sodium [Protonix] 40 mg PO BID #60 tablet 07/04/18 Potassium Chloride [K-Dur] 20 meq PO DAILY #30 tablet 07/04/18 The following prescriptions were given: Potassium Chloride [K-Dur] 20 meq PO DAILY #30 tablet Ciprofloxacin [Cipro] 500 mg PO BID #14 tablet Metronidazole [Flagyl] 500 mg PO TID #21 tablet Orders to be completed after discharge: Basic Metabolic Profile (BMP) Time Frame: 3 Days, Location: Laboratory Primary Care Physician: Clarke Huitrno DO [Primary Care Provider] - Please follow up with your Primary Care Physician in: in 1- 2 weeks Test Results: Test results from this visit will be discussed in further detail at your follow-up appointment, if applicable. Please Follow Up With: Amy Redd MD When: in 2-3 weeks Proposed Discharge Date: 07/04/18 07/04/18 1045 <Electronically signed by Amber Tolliver MD> Date Amber Tolliver MD CC: Clarke Joshi DO; Amy Redd MD 12 LEAD ELECTROCARDIOGRAM Observed: 07/04/2018 Status: F Source: ONG 9:54 AM [facility] REPOSITORY [facility] Cardiovascular Services [address] [place] [address] 12 Lead EKG 07/02/182001 MR#: [id number] Acct: [id number] Name: ROSIE LEO Rep #: [id number] : 1935 83 From: Maury Talley MD Attending Dr: Amber Tolliver MD Status: ADM IN Ordering Dr: Jina Ling MD Date: 07/02/18 Location: [facility] Sex: F C Admitted: 07/02/18 Test Reason : GI BLEED Blood Pressure : / mmHG Vent. Rate : 087 BPM Atrial Rate : 087 BPM P-R Int : 204 ms QRS Dur : 138 ms QT Int : 416 ms P-R-T Axes : 008 -89 -10 degrees QTc Int : 500 ms Normal sinus rhythm Left axis deviation Right bundle branch block Possible Lateral infarct , age undetermined Inferior infarct , age undetermined Abnormal ECG Confirmed by MAURY TALLEY MD ([id number]), general expeditor RAMÓN JUNG ([id number]) on 07/04/2018 9:53:21 AM Referred By: Ottoniel Zepeda Confirmed By:MAURY TALLEY MD 07/04/18 0953 Date Maury Talley MD CC: Amber Tolliver MD; Clarke Joshi DO; Ottoniel Zepeda MD; Jina Ling MD Signed CBC W/DIFF, AUTOMATED Collected: 07/04/2018 Status: F Source: EDGAR 5:40 AM [facility] REPOSITORY TYPE CODE TESTS RESULT OUT OF RANGE REFERENCE UNITS LAB L100.1000 4.4-11.0 K/mm3 Normal WBC 6.6 LAB L100.1200 4.2-5.4 M/mm3 Low RBC 4.17 LAB L100.1300 12.0-15.0 g/dl Low HGB 11.9 LAB L100.1400 37-47 % Normal HCT 37.3 LAB L100.1500 81-99 fL Normal MCV 89.4 LAB L100.1600 27.0-32.0 pg Normal MCH 28.5 LAB L100.1700 32-36 g/gl Low MCHC 31.9 LAB L100.1810 11.6-14.6 % Normal RDW CV 13.3 LAB L100.1820 35.1-43.9 fl Normal RDW SD 43.4 LAB L100.1900 150-450 K/mm3 Normal PLT 156 LAB L100.2000 6.2-12.0 fl Normal MPV 9.5 LAB L100.2100 47-70 % Normal NEUT% 63.2 LAB L100.2200 19-41 % Normal LY% 23.9 LAB L100.2300 0-10 % Normal MONO% 6.8 LAB L100.2400 0-5 % High EO% 5.6 LAB L100.2500 0-1 % Normal BASO% 0.3 LAB L100.2550 0.0-0.9 % Normal IM GRAN % 0.200 Result Comment: IG% - Immature Granulocytes (promyelocytes, myelocytes and metamyelocytes) > 1% indicates that a LEFT SHIFT is Present. LAB L100.2620 2.0-7.7 X10 3/uL Normal Absolute Neut 4.2 LAB L100.2720 0.83-4.51 X10 3/ul Normal Absolute Lymph 1.59 Performed By: #### L100.0100 #### [facility] [address] [place], [place], [id number] BASIC METABOLIC Collected: 07/04/2018 Status: F Source: EDGAR PROFILE (BMP) 5:40 AM [facility] REPOSITORY TYPE CODE TESTS RESULT OUT OF RANGE REFERENCE UNITS LAB L501.0100 74-106 mg/dL Normal GLU 97 Result Comment: Please note revised GLUCOSE reference range effective 2017. LAB L501.1000 7-18 mg/dL Normal BUN 12 LAB L501.1100 0.55-1.02 mg/dL Normal CREAT,SERUM 0.96 Result Comment: The validity of the calculated GFR AND GFRAA in patients over 70 years has not been determined. Clinical correlation is essential. LAB L501.1110 >60 mL/min Low EST GFR 59 Result Comment: Non- GFR Calc LAB L501.1115 >60 mL/min Normal EST GFR - AA 72 Result Comment: GFR Calc LAB L501.1255 ml/min Normal Estimated CRCL 34.09 LAB L501.1300 10-20 RATIO Normal BUN/CRE 12.5 LAB L501.2200 8.5-10 mg/dL Normal .1 CA 8.7 LAB L501.5300 136-14 mmol/L Normal 5 NA 144 LAB L501.5600 3.5-5. mmol/L Normal 1 K 4.0 LAB L501.5900 98-107 mmol/L High CL 110 LAB L501.6100 21.0-3 mmol/L Normal 2.0 CO2 27.0 LAB L501.6200 5-15 Normal GAP 7 Performed By: #### L500.2500 #### [facility] [address] [facility] [place], [address] HISTORY AND PHYSICAL Observed: 07/03/2018 Status: F Source: ONG EXAM 9:19 AM [facility] REPOSITORY [facility] Medical Records Department [address] [place] [address] History and Physical 07/02/182106 MR#: [id number] Acct: [id number] Name: ROSIE LEO Rep #: [id number] : 1935 83 From: Ottoniel Zepeda MD PCP: Clarke Joshi DO Status: ADM IN Y [facility] Problem List (1) Acute hemorrhagic colitis Status: Acute (2) Hypertension Status: Chronic Qualifiers: Hypertension type: unspecified secondary hypertension Qualified Code(s): I15.9 - Secondary hypertension, unspecified; I15 - Secondary hypertension (3) Trigger finger Status: Acute Qualifiers: Trigger finger location: ring finger Laterality: right Qualified Code(s): M65.341 - Trigger finger, right ring finger (4) Carpal tunnel syndrome of right wrist Status: Inactive (5) Vertigo Status: Inactive (6) Carpal tunnel syndrome of left wrist Status: Inactive (7) Nausea and vomiting Status: Resolved Qualifiers: Vomiting Intractability: intractable History of Present Illness Date of Admission: 07/02/18 Chief Complaint: Diarrhea The patient is a 83 year old F with a significant history of hypertension who presented with 2-day history of diarrhea. She describes her diarrhea as multiple loose stools. Associated with her symptoms is multiple episodes of hematochezia. Patient denies any chills, fever, nausea or vomiting. At emergency department occult blood was positive. CT scan of the abdomen and pelvis showed findings consistent with acute nonspecific colitis with primary involvement of the ascending and proximal to mid transverse colon with small amounts of fluid in the right pericolic gutter. Patient denies eating any food out of the ordinary or eating at a restaurant. EKG at the emergency department showed right bundle branch block. Past Medical History Past Medical History (Chronic Problems): Chronic Problems (Last Reviewed 02/03/18 @ 09:20 by Meghan Zaragoza) Hypertension (Chronic) Medical History: Medical History (Last Reviewed 02/03/18 @ 09:20 by Meghan Zaragoza) Carpal tunnel syndrome of right wrist (Acute) G56.01 Vertigo (Acute) R42 Nausea and vomiting (Acute) R11.2 Hypertension (Chronic) I10 Carpal tunnel syndrome of left wrist (Acute) G56.02 Carpal tunnel syndrome of right wrist G56.01 History of hysterectomy Z90.710 Allergies KWAN Inhibitors Allergy (Verified 07/02/18 16:27) Rash Penicillins Allergy (Verified 07/02/18 16:27) Rash gabapentin [From Neurontin] Adverse Reaction (Verified 07/02/18 16:27) Swelling oxycodone HCl [From Percocet] Adverse Reaction (Verified 07/02/18 16:27) Nausea tramadol Adverse Reaction (Verified 07/02/18 16:27) Nausea Home Medications: Ambulatory Orders Medication Instructions Recorded Vit A/Vit C/Vit E/Zinc/Copper 1 ea PO DAILY 06/30/14 [Preservision Areds Softgel] Losartan Potassium [Cozaar] 100 mg PO DAILY 04/02/16 Surgical History: Surgical History (Last Reviewed 07/03/18 @ 02:01 by Ottoniel Zepeda MD) History of carpal tunnel release Z98.890 left History of thyroid surgery Z98.890 Status post carpal tunnel release Onset Date: 01/2018 Z98.890 Surgical History: no surgical history Smoking Status: Never smoker - *Family History Maternal Family History: Family History (Last Reviewed 07/03/18 @ 02:02 by Ottoniel Zepeda MD) Father Asthma Heart disease Hypertension Mother Breast cancer Sister Breast cancer Review of Systems Constitutional: Denies: Chills, Fever, Weight Change HEENT: Denies: Head Aches, Sinus Congestion, Sinus Drainage Cardiovascular: Denies: Chest Pain, Palpitations Respiratory: Denies: Cough, Shortness of breath at rest, Sputum production Gastrointestinal: Reports: Diarrhea. Denies: Abdominal Pain, Nausea, Vomiting Genitourinary: Denies: Dysuria Musculoskeletal: Denies: Joint Pain, Joint Tenderness Skin: Denies: Rash, Wounds Neurological: Reports: Balance problems. Denies: Focal weakness, Numbness, Tingling Psychiatric: Denies: Anxiety, Depression, Homicidal Ideations, Suicidal Ideations Hematologic/ Lymphatic: Denies: Easy Bruising, Easy Bleeding VTE Information - Inpt Only VTE Present on Admission: No VTE Mechan Device Prophylaxis: SCD's VTE Pharm Prophylaxis ordered?: No Patient Problems: Active and Suspected Problems (Last Reviewed 02/03/18 @ 09:20 by Meghan Zaragoza) Acute hemorrhagic colitis (Acute) - Physical Exam General: Alert, Oriented x3, Cooperative HEENT: Atraumatic, PERRLA, EOMI, Normocephalic Neck: Supple, No JVD, Negative Carotid Bruits Lungs: Clear to auscultation, Normal air movement Cardiovascular: Regular rate, No murmurs Abdomen: Bowel Sounds Present, Soft, Non Tender, - - Rectal examination showed bright red blood per rectum. No masses were palpated. Extremities: No edema, Capillary Refill Less than 3 Seconds Skin: No rashes, No breakdown Musculoskeletal: No Tenderness to Palpation of Joints or Extremities Neurological: Cranial nerves II-XII grossly intact Psych/Mental Status: Normal Affect, Appropriate Vital Signs Temp Pulse Resp BP Pulse Ox 98.9 F 86 18 154/86 H 94 12/12/18 16:25 07/02/18 19:23 07/02/18 19:23 07/02/18 19:23 07/02/18 19:23 Oxygen Delivery Method Room Air Weight: 65.771 kg Body Mass Index (BMI) 28.3 Microbiology Past 72 Hours 07/02/18 17:20 Stool Occult Blood (SHAKILA) - Final Stool Laboratory Tests Past 24 Hrs WBC 8.4 RBC 4.75 Hgb 13.5 Hct 42.2 MCV 88.8 MCH 28.4 Assessment/Plan All Active Problems (Last Reviewed 02/03/18 @ 09:20 by Meghan Zaragoza) Acute hemorrhagic colitis (Acute) Trigger finger (Acute) Nausea and vomiting (Resolved) Patient is a 83 year old F with a significant history of hypertension who presented with 2-day history of diarrhea; hematochezia; and with radiographic evidence of findings consistent with acute nonspecific colitis with primary involvement of the ascending and proximal to mid transverse colon; and with small amounts of fluid in the right pericolic gutter. Acute hemorrhagic colitis Diagnosis include viral colitis; bacterial colitis or ischemic colitis or other. Since denies any associated symptoms of fever or chills we will not initiate antibiotic therapy at this time. Supportive treatment with IV fluids. Patient reports that she has not had a colonoscopy in the past. Since it is possible that a tumor may be hiding behind this I discussed with the patient the possibility of having a outpatient colonoscopy that we can facilitate whiles at the hospital.. Patient stated that she will about this think with his son and make a decision. Please follow-up. Trend CBC Hypokalemia At the emergency department patient potassium was 2.7. Received 40 mEq of IV potassium at emergency department. We will continue patient on lactated Ringer's 40 meq of potassium maintenance infusion. Potassium 40 mEq p.o. twice daily ordered. Trend BMP Hypertension On admission her blood pressure was not within goal. Patient reported that because of her diarrhea she did not know how medication will far in her abdomen so she did not take her blood pressure medication Home Cardizem continued We will hold hydrochlorthiazide in the setting of diarrhea and hypokalemia. As needed labetalol ordered.. DVT prophylaxis In the setting of hemorrhagic colitis chemical chemoprophylaxis was not initiated. SCD ordered. Code Visit Inpatient E AND M: 52820 Init Hosp L3 07/03/18 0919 <Electronically signed by Ottoniel Zepeda MD> Date Ottoniel Zepeda MD Cosigner Signature: Date (if applicable) CC: Clarke Joshi DO; Ottoniel Zepeda MD Signed CBC-COMPLETE BLOOD CNT Collected: 07/03/2018 Status: F Source: [place] NO DIFF 5:50 AM [facility] REPOSITORY TYPE CODE TESTS RESULT OUT OF RANGE REFERENCE UNITS LAB L100.1000 4.4-11.0 K/mm3 Normal WBC 8.9 LAB L100.1200 4.2-5.4 M/mm3 Normal RBC 4.48 LAB L100.1300 12.0-15.0 g/dl Normal HGB 12.8 LAB L100.1400 37-47 % Normal HCT 40.1 LAB L100.1500 81-99 fL Normal MCV 89.5 LAB L100.1600 27.0-32.0 pg Normal MCH 28.6 LAB L100.1700 32-36 g/gl Low MCHC 31.9 LAB L100.1810 11.6-14.6 % Normal RDW CV 13.1 LAB L100.1820 35.1-43.9 fl Normal RDW SD 42.4 LAB L100.1900 150-450 K/mm3 Normal PLT 172 LAB L100.2000 6.2-12.0 fl Normal MPV 9.2 Performed By: #### L100.0500 #### [facility] [address] [place], [place], [id number] BASIC METABOLIC Collected: 07/03/2018 Status: F Source: [place] PROFILE (BMP) 5:50 AM [facility] REPOSITORY TYPE CODE TESTS RESULT OUT OF RANGE REFERENCE UNITS LAB L501.0100 74-106 mg/dL Normal GLU 97 Result Comment: Please note revised GLUCOSE reference range effective 2017. LAB L501.1000 7-18 mg/dL Normal BUN 16 LAB L501.1100 0.55-1.02 mg/dL Normal CREAT,SERUM 0.92 Result Comment: The validity of the calculated GFR AND GFRAA in patients over 70 years has not been determined. Clinical correlation is essential. LAB L501.1110 >60 mL/min Normal EST GFR 62 Result Comment: Non- GFR Calc LAB L501.1115 >60 mL/min Normal EST GFR - AA 75 Result Comment: GFR Calc LAB L501.1255 ml/min Normal Estimated CRCL 35.58 LAB L501.1300 10-20 RATIO Normal BUN/CRE 17.4 LAB L501.2200 8.5-10 mg/dL Normal .1 CA 8.7 LAB L501.5300 136-14 mmol/L Normal 5 NA 141 LAB L501.5600 3.5-5. mmol/L Normal 1 K 3.9 LAB L501.5900 98-107 mmol/L High CL 108 LAB L501.6100 21.0-3 mmol/L Normal 2.0 CO2 25.0 LAB L501.6200 5-15 Normal GAP 8 Performed By: #### L500.2500 #### [facility] [address] [place], [address] PROTHROMBIN TIME W/INR Collected: 07/03/2018 Status: F Source: [place] 5:50 AM [facility] REPOSITORY TYPE CODE TESTS RESULT OUT OF RANGE REFERENCE UNITS LAB L300.4150 11.7-14.9 SECONDS Normal PROTIME 13.2 LAB L300.4200 Normal INR 1.0 Performed By: #### L300.3900 #### [facility] [address] [place], [address] STOOL Observed: 07/03/2018 Status: F Source: [place] LACTOFERRIN/WBC 5:40 AM [facility] REPOSITORY Stool Lacto/WBC Normal Reference Range = Negative Fecal WBC Lactoferrin Positive: Fecal WBC Lactoferrin present Performed By: #### M100.0605 #### [facility] [address] [place], [address] Observed: 07/03/2018 Status: F Source: [place] CDIFF (MOLECULAR) 5:40 AM [facility] REPOSITORY Is the patient receiving laxatives? N New/unexplained onset of 3 or more stools in past 24 hrs? Y Cdiff-Molecular C. Diff DNA Negative- No toxigenic C. Diff DNA Detected NAAT METHOD Testing was performed using nucleic acid amplification Performed By: #### M100.6796 #### [facility] [address] [place], [place], [address] Observed: 07/03/2018 Status: F Source: ONG ENTERIC PATHOGEN 5:40 AM [facility] PANEL STOOL REPOSITORY EP PANEL STOOL Not detected for Campylobacter group, Salmonella species, Shigella species, Vibrio Group, Yersinia enterocolitica, EHEC (Shiga Toxin 1, Shiga Toxin 2), Norovirus Gl/Gll, and Rotavirus A. Other common stool pathogens are not detected on this panel include: Aeromonas/Plesiomonas or parasites. Order testing for these organisms separately if suspected. This is an amplified DNA test which makes it both specific and sensitive. Normal Reference Range = Not Detected CAMPYLOBACTER Not Detected Salmonella Not Detected Shigella sp. Not Detected Shiga Toxin Not Detected Yersinia Not Detected VIBRIO Not Detected Norovirus Not Detected Rotavirus Not Detected Performed By: #### M100.637 #### [facility] [address] [place] [address], [id number] GIARDIA LAMBLIA, Collected: 07/03/2018 Status: F Source: ONG STOOL EIA 5:40 AM [facility] REPOSITORY TYPE CODE TESTS RESULT OUT OF RANGE REFERENCE UNITS LAB L7400.3300 Negative Normal Giardia Stool Negative Result Comment: Performed at: - [facility] [address] [id number] Curtain Cutter Hand: Cristo Steel PhD, Phone: [phone] Performed By: #### L7400.3300 #### [facility] (refer to report for specific site) refer to report for address and phone number EMERGENCY DEPARTMENT Observed: 07/03/2018 Status: F Source: [place] SUMMARY 1:26 AM [facility] REPOSITORY [facility] Medical Records Department [address] [place] [address] Emergency Department Summary 07/02/18 1726 MR#: [id number] Acct: [id number] Name: ROSIE LEO Rep #: [id number] : 1935 83 From: Jina Ling MD PCP: Clarke Joshi, Status: ADM IN - ER Visit Summary Date of Service: 07/02/18 Chief Complaint: Blood in stool History of Present Illness: The patient is a 83 F who presents for an episode of bright red blood in her stool. Patient states that overnight she began having abdominal cramping and diarrhea. It was watery and she had multiple episodes. Today the diarrhea and the abdominal cramping have resolved, however patient noted a small amount of bright red blood in her last bowel movement. She then had one more bowel movement that had a large amount of bright red blood in it. She denies any melena, rectal pain, fever, chest pain, shortness of breath, dizziness or lightheadedness. No nausea or vomiting. Patient is not on any blood thinners. She has no history of having a colonoscopy in the past. Patient has had decreased oral intake due to the diarrhea and just not feeling well. Physical Examination: Vital signs: afebrile, hemodynamically stable, no hypoxia on room air General: well nourished, well developed, in no distress Skin: warm, dry, no rash, no pallor HEENT: normocephalic and atraumatic; PERRL, EOMI, dry mucous membranes Cardiovascular: regular rate and rhythm without murmurs, no peripheral edema, 2+ pulses all distal extremities Respiratory: No increased work of breathing, lungs are clear to auscultation bilaterally, no rales, rhonchi or wheezing Abdominal: Abdomen is soft, nontender with normoactive bowel sounds, no guarding or rebound, no masses, rectal exam shows no external hemorrhoids, nontender rectum with good rectal tone, no masses noted, soft brown stool on glove no leann blood MSK: Moves all extremities, no deformities, normal strength Neuro: Awake and alert, oriented 4. No facial droop, sensation and motor function intact and symmetric Test Results: Abnormal Lab Results WBC 8.4 RBC 4.75 Hgb 13.5 Hct 42.2 MCV 88.8 MCH 28.4 Clinical Impression(s) from Imaging Studies Abdomen/Pelvis CT 07/02/18 19:30 IMPRESSION: Findings consistent with acute nonspecific colitis with primary involvement of the ascending and proximal to mid transverse colon with small amount of fluid in the right paracolic gutter Status post hysterectomy. 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 Clinical correlation is recommended Electronically Signed: Giovani Jimenez MD at 20:42 EST , Service support , Medications Given Discontinued Medications Sodium Chloride () 1,000 mls @ 500 mls/hr IV .Q2H ONE Stop: 07/02/18 19:23 Last Admin: 07/02/18 17:40 Dose: 500 mls/hr Potassium Chloride (Kcl 10meq/100ml) 10 meq in 100 mls @ 100 mls/hr IV BOLUS Q1H MAXIMUS Stop: 07/02/18 23:29 Last Admin: 07/02/18 23:51 Dose: 100 mls/hr Admin: 07/02/18 22:38 Dose: 100 mls/hr Admin: 07/02/18 21:17 Dose: 100 mls/hr Admin: 07/02/18 20:12 Dose: 100 mls/hr Emergency Department Course and Treatment: Patient presents for bright red blood in her stool after several episodes of diarrhea since yesterday. Patient's diarrhea has improved at this time, however given her age and the multiple episodes with concern for dehydration, labs were performed. Patient was hypokalemic at 2.7. EKG showed a right bundle branch block with prolonged QTC duration. Patient was positive blood in stool. Because of the occult blood and brown stool, the significant hypokalemia, and the crampy abdominal pain with no history of ever having a colonoscopy, imaging was performed. It showed transverse and ascending colitis, acute and nonspecific. Patient was not started on antibiotics, as it is not clear that this is a bacterial colitis, and antibiotics may make her worse. She will require admission for treatment of her hypokalemia and further evaluation of her colitis. Patient was started on IV potassium and admitted to the hospitalist. Treatment Plan: [] Disposition: [] Impression: Hypokalemia, acute colitis, lower GI bleed This note was generated with [employer] software. It may contain incorrect words, spelling, and punctuation that were not noted in review of the chart prior to signing ED Disposition - Plan for ED Patient: Disposition: Acute Care Hospital [facility] Chief Complaint: GI Bleed What to do if you have Problems For any increased pain, shortness of breath, bleeding, nausea or vomiting, chest pain, or any unexpected problems, contact your Primary Care Provider. Call [facility] ([phone]) or report to the closest Emergency Room. Call 911 if necessary. 07/03/18 0126 <Electronically signed by Jina Ling MD> Date Jina Ling MD Cosigner Signature (If Indicated): Date CC: Clarke Joshi DO ABDOMEN/PELVIS W IV CONT Observed: 07/02/2018 Status: F Source: EDG[place] ONLY 7:31 PM [facility] REPOSITORY [facility] Imaging Services [address] [place] [address] Abdomen/Pelvis W IV Cont ONLY MR#: [id number] Acct: [id number] Name: ROSIE LEO Rep #: [id number] : 1935 F 83 From: Giovani Jimenez MD PCP: Clarke Joshi DO Status: REG ER Study: Abdomen/Pelvis W IV Cont ONLY Date of Exam: 07/02/18 Exam# [id number] Ordering Dr: Jina Ling MD STUDY: CT ABDOMEN AND PELVIS WITH CONTRAST REASON FOR EXAM: Female, 83 years old. Diarrhea RADIATION DOSAGE (If Supplied By Facility): CTDIvol = ( 16.86 ) mGy, DLP = ( 825.90 ) mGycm TECHNIQUE: Transaxial images were obtained from the dome of the diaphragm to the symphysis pubis without oral contrast. 100ML ml of Isovue 300 contrast was administered. Sagittal and coronal images were reconstructed. Individualized dose optimization techniques were used for this CT. COMPARISON: None. FINDINGS: Minor atelectasis within the dependent portion of the lungs.. The heart size is normal. Mild coronary artery calcification. Small hiatal hernia is present Liver is fatty infiltrated without mass or bile duct dilatation Normal gallbladder and extrahepatic biliary system. Normal spleen. Normal pancreas. Normal bilateral adrenal glands. No evidence for renal obstruction or ureteral calculus. There is a solitary simple cyst in the right renal cortex and multiple simple cysts in left kidney. Normal visualized stomach. Normal small intestine. There is diminished haustration and submucosal edema within the junior of the ascending and proximal to mid transverse colon with stranding in the fat consistent with acute nonspecific colitis. There is a small amount of fluid in the right paracolic gutter. No evidence for acute appendicitis Atherosclerotic changes of the aorta without evidence for aneurysm periaortic leak or dissection.. Normal inferior vena cava. Normal retroperitoneum. Normal urinary bladder. In the left adnexa, there is a 2.6 x 2.6 cm complex predominantly fatty mass demonstrating focal calcification. There is a trace of fluid in the pelvis on the right Uterus not visualized consistent with hysterectomy. Moderate size fat-containing inguinal hernias noted on the left . The lumbar spine demonstrates mild spondylosis. Grade 1 spondylolisthesis at L4-5 CT/Abdomen/Pelvis W IV Cont ONLY IMPRESSION: Findings consistent with acute nonspecific colitis with primary involvement of the ascending and proximal to mid transverse colon with small amount of fluid in the right paracolic gutter Status post hysterectomy. 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 Clinical correlation is recommended Electronically Signed: Giovani Jimenez MD at 20:42 EST , Service support , CC: Clarke Joshi DO; Jina Ling MD Mold Sander: Signed CBC W/DIFF, AUTOMATED Collected: 07/02/2018 Status: F Source: [place] 5:30 PM [facility] REPOSITORY TYPE CODE TESTS RESULT OUT OF RANGE REFERENCE UNITS LAB L100.1000 4.4-11.0 K/mm3 Normal WBC 8.4 LAB L100.1200 4.2-5.4 M/mm3 Normal RBC 4.75 LAB L100.1300 12.0-15.0 g/dl Normal HGB 13.5 LAB L100.1400 37-47 % Normal HCT 42.2 LAB L100.1500 81-99 fL Normal MCV 88.8 LAB L100.1600 27.0-32.0 pg Normal MCH 28.4 LAB L100.1700 32-36 g/gl Normal MCHC 32.0 LAB L100.1810 11.6-14.6 % Normal RDW CV 13.1 LAB L100.1820 35.1-43.9 fl Normal RDW SD 42.4 LAB L100.1900 150-450 K/mm3 Normal PLT 185 LAB L100.2000 6.2-12.0 fl Normal MPV 9.3 LAB L100.2100 47-70 % High NEUT% 78.9 LAB L100.2200 19-41 % Low LY% 14.0 LAB L100.2300 0-10 % Normal MONO% 5.8 LAB L100.2400 0-5 % Normal EO% 1.1 LAB L100.2500 0-1 % Normal BASO% 0.1 LAB L100.2550 0.0-0.9 % Normal IM GRAN % 0.100 Result Comment: IG% - Immature Granulocytes (promyelocytes, myelocytes and metamyelocytes) > 1% indicates that a LEFT SHIFT is Present. LAB L100.2620 2.0-7.7 X10 3/uL Normal Absolute Neut 6.7 LAB L100.2720 0.83-4.51 X10 3/ul Normal Absolute Lymph 1.18 Performed By: #### L100.0100 #### [facility] [address] [place], [place], [address] COMPREHENSIVE METABOLIC Collected: 07/02/2018 Status: F [facility] REPOSITORY TYPE CODE TESTS RESULT OUT OF RANGE REFERENCE UNITS LAB L501.0100 74-106 mg/dL Normal GLU 104 Result Comment: Fasting Glucose result from 100 to 125 mg/dL suggests IMPAIRED HOMEOSTASIS per A.D.A. criteria. Please note revised GLUCOSE reference range effective 2017. LAB L501.1000 7-18 mg/dL High BUN 21 LAB L501.1100 0.55-1.02 mg/dL High CREAT,SERUM 1.10 Result Comment: The validity of the calculated GFR AND GFRAA in patients over 70 years has not been determined. Clinical correlation is essential. LAB L501.1110 >60 mL/min Low EST GFR 51 Result Comment: Non- GFR Calc LAB L501.1115 >60 mL/min Normal EST GFR - AA 61 Result Comment: GFR Calc LAB L501.1255 ml/min Normal Estimated CRCL 28.32 LAB L501.1300 10-20 RATIO Normal BUN/CRE 19.1 LAB L501.1500 6.4-8. g/dL Normal 2 T PROT 8.1 LAB L501.1800 3.2-5. g/dL Normal 0 ALB 3.8 LAB L501.1950 2.2-4. g/dL High 2 GLOB 4.3 LAB L501.2000 0.9-2. RATIO Normal 4 A/G 0.9 LAB L501.2200 8.5-10 mg/dL Normal .1 CA 9.1 LAB L501.4100 15-37 U/L Normal AST 18 LAB L501.4305 45-117 U/L Normal ALK P 74 LAB L501.4405 13-56 U/L Normal ALT 15 LAB L501.4600 0.20-1 mg/dL Normal .00 T BILI 0.50 LAB L501.5300 136-14 mmol/L Normal 5 NA 142 LAB L501.5600 3.5-5. mmol/L Low 1 K alert 2.7 Result Comment: Critical Result(s) Called Ora CALVO at: 18:40:48 07/02/2018 by: SANJEEV AQUINO LAB L501.5900 98-107 mmol/L Normal CL 107 LAB L501.6100 21.0-32.0 mmol/L Normal CO2 27.0 LAB L501.6200 5-15 Normal 8 GAP Performed By: #### L500.4050, L501.2450 #### [facility] [address] [place], [place], [id number] LIPASE Collected: 07/02/2018 Status: F Source: [place] 5:30 PM [facility] REPOSITORY TYPE CODE TESTS RESULT OUT OF RANGE REFERENCE UNITS LAB L501.2450 73-393 U/L Normal LIPASE 151 Performed By: #### L500.4050, L501.2450 #### [facility] [address] [place], [address] Observed: 07/02/2018 Status: F Source: [place] STOOL OCCULT BLOOD 5:20 PM [facility] IFOB REPOSITORY Has pt arrived? Y STOB iFOB Occult Blood Positive Performed By: #### M100.7900 #### [facility] [address] [place], [address] SURGERY VISIT REPORT Observed: 02/03/2018 Status: F Source: ED[place]AR 12:40 PM [facility] REPOSITORY [facility] [address] [place] [address] OFFICE VISIT Date of Service: 02/03/18 MR#: [id number] Acct: [id number] Name: ROSIE LEO Rep #: [id number] : 1935 Provider: Hayley Duval PA-C Age/Sex: 82/F Location: [facility] Status: Signed Intake Intake Visit Reasons: Suture Removal Rt CTR 01/28 RC Chief Complaint: suture removal right carpal tunnel Heel Varnisher Required: No Is patient in pain?: No Allergies KWAN Inhibitors Allergy (Verified 01/21/18 08:42) Rash Penicillins Allergy (Verified 01/21/18 08:42) Rash gabapentin [From Neurontin] Adverse Reaction (Verified 01/21/18 08:42) Swelling oxycodone HCl [From Percocet] Adverse Reaction (Verified 01/21/18 08:42) Nausea tramadol Adverse Reaction (Verified 01/21/18 08:42) Nausea Medications Vit A/Vit C/Vit E/Zinc/Copper [Preservision Areds Softgel] 1 ea PO DAILY 06/30/14 [History Confirmed 02/03/18] Hydrochlorothiazide 12.5 mg PO DAILY 04/02/16 [History Confirmed 02/03/18] Losartan Potassium [Cozaar] 100 mg PO DAILY 04/02/16 [History Confirmed 02/03/18] Diltiazem HCl [Cartia Xt] 240 mg PO DAILY 01/07/17 [History Confirmed 02/03/18] ibuprofen 200 mg tablet 200 mg PO BID 12/20/17 [History Confirmed 02/03/18] Is last menstrual period known: No Post menopausal: Yes Patient : No PFSH Medical History Carpal tunnel syndrome of right wrist (Acute) Vertigo (Acute) Nausea and vomiting (Acute) Hypertension (Chronic) Carpal tunnel syndrome of left wrist (Acute) Carpal tunnel syndrome of right wrist (Acute) Surgical History History of carpal tunnel release (Acute) History of hysterectomy (Acute) History of thyroid surgery (Acute) Status post carpal tunnel release (Acute 01/2018) Family History Father Asthma Heart disease Hypertension Mother Breast cancer Sister Breast cancer Social History Smoking Status: Never smoker alcohol intake: never substance use type: does not use HPI HPI HPI: ROSIE LEO, is a 82 F I am following for right carpal tunnel syndrome and right fourth digit trigger finger. Dr. Garcia performed a right carpal tunnel release and right hand fourth digit trigger finger release on 01/28/18. Patient tolerated the procedure well. She notes minimal amount of discomfort at the incision sites. She denies drainage. She notes minimal amount of swelling. Exam Const General: cooperative, healthy appearing, comfortable, no acute distress Extrem Other: Right wrist and hand- incisions c/d/i. No erythema or infection noted. Sutures were completely removed. Steri-strips were placed. No drainage noted. Assessment AND Plan Problems 1. Carpal tunnel syndrome of right wrist G56.01 2. 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 Plan - Continue hand exercises - May ice incisions as needed - Follow-up as needed Coding Level of Care Code Global Post Op Diagnoses Carpal tunnel syndrome of right wrist G56.01 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 Trigger finger location: ring finger Laterality: right 02/03/18 1240 <Electronically signed by Hayley Duval PA-C> Date Hayley Viramontes Signature: Date (if applicable) CC: Clarke Joshi DO DISCHARGE INSTRUCTION Observed: 01/28/2018 Status: F Source: EDGAR 11:42 AM [facility] REPOSITORY [facility] Medical Records Department [address] [place] [address] Instructions for Home/Discharge Instructions 01/28/18 0736 MR#: [id number] Acct: [id number] Name: ROSIE LEO Rep #: [id number] : 1935 82 From: Rakesh Garcia MD PCP: Clarke Joshi DO Status: DEP [facility] Discharge Diet: Light diet - advance as tolerated - if you have questions about your diet instructions, please talk to you doctor. Discharge Activity: May Not Drive - for 1 week or while taking narcotic pain medicine. May shower in (days): 1 Lifting Restrictions: 10 pounds Call your doctor if your incision/area has: Continuous Slow Oozing, Sudden Increased Bleeding, Increased Pain/ Swelling, Increased Redness, Foul Smelling Discharge Call your doctor if you observe: Fever of 101 or Higher Suture Line Care: Avoid Pulling/Pushing, Avoid Pinching/Bending Additional Dressing/Incision Instructions:: You may shower in 1 day if you are able to protect your right hand and dressings with a plastic bag. Limit her lifting of the right hand to 3-5 pounds. You may utilize her fingers for light work. Allergies/Adverse Reactions: Allergies KWAN Inhibitors Allergy (Verified 01/21/18 08:42) Rash Penicillins Allergy (Verified 01/21/18 08:42) Rash gabapentin [From Neurontin] Adverse Reaction (Verified 01/21/18 08:42) Swelling oxycodone HCl [From Percocet] Adverse Reaction (Verified 01/21/18 08:42) Nausea tramadol Adverse Reaction (Verified 01/21/18 08:42) Nausea Medications to take at Discharge Vit A/Vit C/Vit E/Zinc/Copper [Preservision Areds Softgel] 1 ea PO DAILY 06/30/14 Hydrochlorothiazide 12.5 mg PO DAILY 04/02/16 Losartan Potassium [Cozaar] 100 mg PO DAILY 04/02/16 Diltiazem HCl [Cartia Xt] 240 mg PO DAILY 01/07/17 ibuprofen 200 mg tablet 200 mg PO BID 12/20/17 Primary Care Physician: Clarke Huitron DO [Primary Care Provider] - Test Results: Test results from this visit will be discussed in further detail at your follow-up appointment, if applicable. Please Follow Up With: Rakesh Garcia MD - [phone] When: Call to make an appointment to be seen on Saturday02/03/18 01/28/18 1142 <Electronically signed by Rakesh Garcia MD> Date Rakesh Garcia MD CC: Clarke Joshi DO OPERATIVE REPORT Observed: 01/28/2018 Status: F Source: ONG 8:18 AM [facility] Medical Records Department [address] [place] [address] Operative Report 01/28/18812 MR#: [id number] Acct: [id number] Name: ROSIE LEO Rep #: [id number] : 1935 82 From: Rakesh Garcia MD PCP: Clarke Joshi DO Status: [facility] [place] Location: [place] [address] Problem List (1) Carpal tunnel syndrome of right wrist Status: Acute (2) Trigger finger Status: Acute Qualifiers: Trigger finger location: ring finger Laterality: right Qualified Code(s): M65.341 - Trigger finger, right ring finger Report of Operation Date of Procedure: 01/28/18 Pre-Operative Diagnosis: Right hand carpal tunnel syndrome, right hand fourth digit trigger finger Post-Operative Diagnosis: Same Surgery/Procedure Performed:: Right carpal tunnel release. Right hand fourth digit trigger finger release tenosynovectomy Description of Surgical Findings:: Timeout and informed consent was obtained. 82-year-old female was taken the operating room. The right upper extremity sterilely prepped and draped. A right upper extremity Kelly block was performed. 250 mmHg pressure for 32 minutes. The right hand was sterilely prepped and draped. A curvilinear incision in the base of the base of the right palm. Sharp dissection carried down to the palmar fascia. The palmar fascia was incised to the proximal wrist crease and then along the fourth ray was incised to the distal palmar crease. Excellent release was achieved. The wound was closed with deep layer of interrupted 4-0 chromic subdermal stitches and a running simple suture of 4-0 nylon. Attention was drawn to the right hand fourth digit. At the metacarpal phalangeal joint location a transverse incision was created sharp dissection carried down to Diaz tissue the tenosynovium was identified in the hypertrophic tendon identified a longitudinal incision was released. A tenosynovectomy was performed excising portions of hypertrophic tissue to allow for release of the tendon. At the completion there appeared to be free release with good motion of the tendon and resolution of the triggering. Fragments of excessive hypertrophic tenosynovium was submitted a specimen. This wound office was closed with a deep suture of interrupted 4-0 chromic and then simple sutures of 4-0 nylon. Each wound was anesthetized with 0.5% Marcaine total of only 3 cc was used. Telfa 4 x 4 soft roll Kwan wrap applied. Sponge and instrument and needle counts were reported to the surgeon to be correct. Blood loss was minimal. Specimens include the tenosynovium. Drains none. She was taken to the recovery area in satisfactory condition Rakesh Garcia M.D., F.A.C.S. Type of Anesthesia:: Kelly Victoria Anesthesiologist: Angie Burns 01/28/18 0818 <Electronically signed by Rakesh Garcia MD> Date Rakesh Garcia MD CC: Clarke Joshi DO; Rakesh Garcia MD Signed TENDON/OR TENDON Observed: 01/28/2018 Status: F Source: [place] SHEATH 7:15 AM [facility] REPOSITORY Patient: ROSIE LEO : 1935 (82/F) Acct Num: [id number] Phys: Radha MUSTAFA,Rakesh Unit Num: [id number] Loc: [facility] Specimen: [id number] Received: 01/28/18 - 1040 Spec Type: TENDON TISSUES TISSUES: Tendon and tendon sheath, NOS GROSS DESCRIPTION Received in fixative is one container labeled with the patient's name and designated tenosynovium. The specimen consists of two irregular fragments of light johnson soft tissue that in aggregate measure 0.7 x 0.2 x 0.1 cm. The specimen is totally submitted in one cassette. / AM: 01/28/18 TC:5 CPT: 56382 HEADER OPERATION: Right carpal tunnel release, right fourth digit trigger finger PRE-OP DIAGNOSIS: Carpal tunnel syndrome of right wrist TISSUE SUBMITTED: Tenosynovium MICROSCOPIC DESCRIPTION Slides are reviewed. MICROSCOPIC DIAGNOSIS Tenosynovium: Fragments of fibrocartilaginous tissue with reactive changes. SJ:ina 01/29/18 Signed Ag Wallace 01/29/18 <signature on file> Performed By: #### PTESH #### [facility] [address] [place], [address] [facility] Observed: 01/28/2018 Status: COMPLETED Source: LANE 12:00 AM [facility] REPOSITORY Patient Outreach (FAMPST) ROSIE LEO ([id number]) 1935 F Date Time Provider Department 01/28/18 CLARKE HUITRON FAMPST During your visit today, we recorded the following information about you: Allergies As of Date: 01/28/2018 Noted Allergy Reaction KWAN INHIBITORS 06/26/2005 FLEXERIL (CYCLOBENZAPRINE HCL) 02/13/2011 1 - Mental Status Change Comments: drowsiness PENICILLINS 06/26/2005 PERCOCET (OXYCODONE-ACETAMINOPHEN)05/04/2014 8 - GI Upset VICODIN (HYDROCODONE-ACETAMINOPHE*05/04/2014 8 - GI Upset Date Reviewed: 08/02/2017 Reviewed by: Nayeli Jane LPN - Fully Assessed Visit Diagnosis:Medication management [Z79.899] Order(s):LIPID PANEL BASIC [SQLIPB] Order #: [id number] FUTURE Prescriptions as of 01/28/2018 Sig: DILTIAZEM XR 240 MG CAP Take 1 capsule by mouth once * LOSARTAN 100 MG TABLET Take 1 tablet by mouth once d* HYDROCHLOROTHIAZIDE 12.5 MG C* Take 1 capsule by mouth once * ASPIRIN 81 MG TABLET,DELAYED * Take 81 mg by mouth once shayla* POTASSIUM CHLORIDE ER 10 MEQ * Take 1 tablet by mouth daily * HYDROCODONE 5 MG-ACETAMINOPHE* Take 0.5 tablets by mouth twi* IBUPROFEN 200 MG TABLET Take 1-2 tablets by mouth cynthia* OTC PRODUCT Perservision Eye Vitamin, Pt * Problem List As Of Date 01/28/2018 Noted Resolved Pure hypercholesterolemia [E78.00] Unspecified essential hypertension [I10] Generalized osteoarthrosis, unspecified site [M*INVALID FOR* Disturbance of skin sensation [R20.9] INVALID FOR* Lumbago [M54.5] INVALID FOR* Abnormal mammogram, unspecified [R92.8] INVALID FOR* 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 pylori infection [A04.8] INVALID FOR* C. difficile diarrhea [A04.72] INVALID FOR* Encounter Status:Closed by RAFY BAÑUELOSUSER on 05/02/18 12 LEAD ELECTROCARDIOGRAM Observed: 01/23/2018 Status: F Source: [place] 10:16 AM [facility] REPOSITORY [facility] Cardiovascular Services [address] [place] [address] 12 Lead EKG 01/21/18 0943 MR#: [id number] Acct: [id number] Name: ROSIE LEO Rep #: [id number] : 1935 82 From: Maury Talley MD Attending Dr: Rakesh Garcia MD Status: PRE SDC Ordering Dr: Rakesh Garcia MD Date: 01/21/18 Location: [facility] Sex: F C Admitted: Test Reason : PREOP Blood Pressure : / mmHG Vent. Rate : 055 BPM Atrial Rate : 055 BPM P-R Int : 184 ms QRS Dur : 126 ms QT Int : 440 ms P-R-T Axes : 026 -75 -10 degrees QTc Int : 420 ms Sinus bradycardia with Premature atrial complexes Right bundle branch block Left anterior fascicular block Bifascicular block Abnormal ECG Confirmed by MAYANK MUSTAFA, MAURY ([id number]), general expeditor RAMÓN JUNG ([id number]) on 01/23/2018 10:15:45 AM Referred By: Rakesh Garcia Confirmed By:MAURY TALLEY MD 01/23/18 1015 Date Maury Talley MD CC: Clarke Joshi DO; Rakesh Garcia MD Signed CBC-COMPLETE BLOOD CNT Collected: 01/21/2018 Status: F Source: [place] NO DIFF 9:30 AM [facility] REPOSITORY TYPE CODE TESTS RESULT OUT OF RANGE REFERENCE UNITS LAB L100.1000 4.4-11.0 K/mm3 Normal WBC 6.0 LAB L100.1200 4.2-5.4 M/mm3 Normal RBC 4.45 LAB L100.1300 12.0-15.0 g/dl Normal HGB 12.9 LAB L100.1400 37-47 % Normal HCT 39.8 LAB L100.1500 81-99 fL Normal MCV 89.4 LAB L100.1600 27.0-32.0 pg Normal MCH 29.0 LAB L100.1700 32-36 g/gl Normal MCHC 32.4 LAB L100.1810 11.6-14.6 % Normal RDW CV 13.0 LAB L100.1820 35.1-43.9 fl Normal RDW SD 41.9 LAB L100.1900 150-450 K/mm3 Normal PLT 193 LAB L100.2000 6.2-12.0 fl Normal MPV 9.9 Performed By: #### L100.0500 #### [facility] [address] [place], [address] BASIC METABOLIC Collected: 01/21/2018 Status: F Source: [place] PROFILE (BMP) 9:30 AM [facility] REPOSITORY TYPE CODE TESTS RESULT OUT OF RANGE REFERENCE UNITS LAB L501.0100 74-106 mg/dL Normal GLU 87 Result Comment: Please note revised GLUCOSE reference range effective 2017. LAB L501.1000 7-18 mg/dL High BUN 26 LAB L501.1100 0.55-1.02 mg/dL High CREAT,SERUM 1.07 Result Comment: The validity of the calculated GFR AND GFRAA in patients over 70 years has not been determined. Clinical correlation is essential. LAB L501.1110 >60 mL/min Low EST GFR 52 Result Comment: Non- GFR Calc LAB L501.1115 >60 mL/min Normal EST GFR - AA 63 Result Comment: GFR Calc LAB L501.1300 10-20 RATIO High BUN/CRE 24.3 LAB L501.2200 8.5-10.1 mg/dL CA Normal 9.0 LAB L501.5300 136-145 mmol/L NA Normal 142 LAB L501.5600 3.5-5.1 mmol/L Low K 3.4 LAB L501.5900 98-107 mmol/L CL Normal 105 LAB L501.6100 21.0-32.0 mmol/L Normal CO2 30.0 LAB L501.6200 5-15 Normal GAP 7 Performed By: #### L500.2500 #### [facility] [address] [place], [address] SURGERY VISIT REPORT Observed: 01/21/2018 Status: F Source: [place] 9:27 AM [facility] REPOSITORY [facility] [address] [place] [address] OFFICE VISIT Date of Service: 01/21/18 MR#: [id number] Acct: [id number] Name: ROSIE LEO Rep #: [id number] : 1935 Provider: Hayley Duval PA-C Age/Sex: 82/F Location: [facility] Status: Signed Intake Vital Signs01/21/18 Height 5 ft 1 in 01/21/18 Weight: 142 lb Intake Visit Reasons: update h AND p R CTR w/ RC 7-10 Is patient in pain?: No Allergies KWAN Inhibitors Allergy (Verified 01/21/18 08:42) Rash Penicillins Allergy (Verified 01/21/18 08:42) Rash gabapentin [From Neurontin] Adverse Reaction (Verified 01/21/18 08:42) Swelling oxycodone HCl [From Percocet] Adverse Reaction (Verified 01/21/18 08:42) Nausea tramadol Adverse Reaction (Verified 01/21/18 08:42) Nausea Medications Vit A/Vit C/Vit E/Zinc/Copper [Preservision Areds Softgel] 1 ea PO DAILY 06/30/14 [History Confirmed 01/21/18] Hydrochlorothiazide 12.5 mg PO DAILY 04/02/16 [History Confirmed 01/21/18] Losartan Potassium [Cozaar] 100 mg PO DAILY 04/02/16 [History Confirmed 01/21/18] Diltiazem HCl [Cartia Xt] 240 mg PO DAILY 01/07/17 [History Confirmed 01/21/18] ibuprofen 200 mg tablet 200 mg PO BID 12/20/17 [History Confirmed 01/21/18] PFSH Medical History Carpal tunnel syndrome of right wrist (Acute) Vertigo (Acute) Nausea and vomiting (Acute) Hypertension (Chronic) Carpal tunnel syndrome of left wrist (Acute) Carpal tunnel syndrome of right wrist (Acute) Surgical History History of carpal tunnel release (Acute) History of hysterectomy (Acute) History of thyroid surgery (Acute) Family History Father Asthma Heart disease Hypertension Mother Breast cancer Sister Breast cancer Social History Smoking Status: Never smoker alcohol intake: never substance use type: does not use HPI HPI HPI: ROSIE LEO, is a 82 F I am following for right carpal tunnel syndrome. Patient was noted to have bilateral carpal tunnel syndrome. Dr. Garcia performed a left carpal tunnel release on 07/10/17. Patient returns to have right carpal tunnel release. Patient did have nerve conduction testing on 06/04/17 which demonstrated severe median neuropathy bilateral wrists. Patient denies recent hospitalizations within the last 6 months. She notes her sister the day of her last surgery in June. ROS General General: No weight change, appetite, fatigue, colon cancer, breast cancer or weakness HEENT HEENT: No difficulty swallowing, eye injury, eye surgery, swollen glands or hoarseness Endo Endocrine: No thyroid disease, diabetes mellitus, thyroid cancer, Hair loss, heat intolerance or cold intolerance Skin Skin: No rash or changing moles Breast Breast: No left breast lump, right breast lump, nipple discharge, breast pain, abnormal mammogram, abnormal US or breast enlargement Musc Musculoskeletal: Yes arthritis; no back problems, rheumatoid arthritis, gout or joint pain Cardio Cardiovascular: Yes high blood pressure; no murmur, pacemaker, heart disease, atrial fibrillation, heart attack, heart stent, palpitations, shortness of breat with exertion or chest pain Psych Psychiatric: No depression, anxiety or hearing voices Resp Respiratory: No shortness of breath, No sleep apnea, No cough, No COPD, No asthma, No emphysema, No wheezing Gastro Gastrointestinal: No abdominal pain, No nausea or vomiting, No diarrhea, No constipation, No blood in stool, No acid reflux, No hemorrhoids, No ulcers, No gallbladder problem, No black,tarry stools Kelechi Hematologic: No blood thinners, No blood disorders, No bleeding, No anemia, No blood clots Neuro Neurologic: No system reviewed and no additional complaints, except as docu, No as per HPI, No abnormal walking, No abnormal hearing, No abnormal movements, No abnormal speech, No behavioral changes, No burning sensations, No confusion, No seizure-like activity, No unsteadiness, No dizziness, No localized weakness, No frequent falls, No headache(s), No lack of coordination, No loss of vision, No memory loss, Yes numbness, No other visual disturbances, No radiating pain, No restless legs, No sensory deficit, No fainting, Yes tingling, No tremor(s), No weakness, No other Exam Const General: cooperative, healthy appearing, comfortable, no acute distress HENMT Head: normal to inspection Eyes General: appearance normal, both eyes and all related structures Neck Neck mass: No Chest Breast Palpation: No nipple discharge Resp Effort AND Inspection: normal respiratory effort Auscultation: clear to auscultation bilaterally Cardio Rate: regular rate Rhythm: regular rhythm Heart Sounds: no murmurs GI Inspection: normal to inspection Palpation: soft Auscultation: normal bowel sounds Skin General: no rashes or lesions noted Neuro General: no focal motor deficits Extrem Other: Left wrist- nicely healed incision Right wrist- positive tinel's sign. Thenar atrophy. Psych Appearance: grossly normal Affect: normal affect Assessment AND Plan Problems 1. Carpal tunnel syndrome of right wrist G56.[address] Garcia will plan to perform a right carpal tunnel release. Procedure details, risks and benefits were reviewed. Patient has had the opportunity to ask and have questions answered. Patient verbally understands and agrees with the plan. Coding Level of Care Code No Charge Diagnoses Carpal tunnel syndrome of right wrist G56.01 Comment Update H AND P 01/21/18 0927 <Electronically signed by Hayley Duval PA-C> Date Hayley Duval PA-C Cosigner Signature: Date (if applicable) CC: Clarke Joshi DO SURGERY VISIT REPORT Observed: 12/20/2017 Status: F Source: ONG 1:27 PM [facility] REPOSITORY [facility] [address] [place] [address] [address] [place] [address] OFFICE VISIT Date of Service: 12/20/17 MR#: [id number] Acct: [id number] Name: ROSIE LEO Rep #: [id number] : 1935 Provider: Rakesh Garcia MD Age/Sex: 82/F Location: [facility] Status: Signed Intake Vital Signs12/20/17 Height 5 ft 2 in 12/20/17 Weight: 140 lb Intake Visit Reasons: right carpal tunnel, left done by cebul Heel Varnisher Required: No Is patient in pain?: No Allergies KWAN Inhibitors Allergy (Verified 12/20/17 12:48) Rash Penicillins Allergy (Verified 12/20/17 12:48) Rash gabapentin [From Neurontin] Adverse Reaction (Verified 12/20/17 12:48) Swelling oxycodone HCl [From Percocet] Adverse Reaction (Verified 12/20/17 12:48) Nausea tramadol Adverse Reaction (Verified 12/20/17 12:48) Nausea Medications Vit A/Vit C/Vit E/Zinc/Copper [Preservision Areds Softgel] 1 ea PO DAILY 06/30/14 [History Confirmed 12/20/17] Hydrochlorothiazide 12.5 mg PO DAILY 04/02/16 [History Confirmed 12/20/17] Losartan Potassium [Cozaar] 100 mg PO DAILY 04/02/16 [History Confirmed 12/20/17] Diltiazem HCl [Cartia Xt] 240 mg PO DAILY 01/07/17 [History Confirmed 12/20/17] Hydrocodone/Acetaminophen [Flomaton 5-325 Tablet] 0.5 - 1 ea PO TID PRN 01/07/17 [History Confirmed 12/20/17] Meclizine HCl [Antivert] 25 mg PO TID PRN #60 tab 01/09/17 [Rx Confirmed 12/20/17] ibuprofen 200 mg tablet 200 mg PO TID-QID PRN 12/20/17 [History Confirmed 12/20/17] PFSH Medical History Carpal tunnel syndrome of right wrist (Acute) Vertigo (Acute) Nausea and vomiting (Acute) Hypertension (Chronic) Carpal tunnel syndrome of left wrist (Acute) Carpal tunnel syndrome of right wrist (Acute) Surgical History History of carpal tunnel release (Acute) History of hysterectomy (Acute) History of thyroid surgery (Acute) Family History Father Asthma Heart disease Hypertension Mother Breast cancer Sister Breast cancer Social History Smoking Status: Never smoker alcohol intake: never substance use type: does not use HPI HPI HPI: ROSIE LEO, is a 82 F who presents to the office today for ongoing surgical care and treatment of bilateral carpal tunnel syndrome. The patient has quite asymptomatic right hand. It is very stiff and she has to work it out in the mornings. She has significant pain involving the right third and portion of the fourth digit. At the [facility] on June 04, 2017 she had nerve conduction test demonstrating severe median neuropathy at the wrists bilaterally. On July 10, 2017 I performed a left carpal tunnel release. She has had excellent result from this and is very appreciative. Unfortunately on that very same day she lost her sister.Yee Quick. Patient returns today to discuss treatment of her right hand which has progressively worsened ROS General General: Yes fatigue; no weight change, appetite, colon cancer, breast cancer or weakness HEENT HEENT: Yes eye surgery; no difficulty swallowing, eye injury, swollen glands or hoarseness Endo Endocrine: Yes thyroid disease; no diabetes mellitus, thyroid cancer, Hair loss, heat intolerance or cold intolerance Skin Skin: No rash or changing moles Breast Breast: No left breast lump, right breast lump, nipple discharge, breast pain, abnormal mammogram, abnormal US or breast enlargement Musc Musculoskeletal: Yes back problems and arthritis; no rheumatoid arthritis, gout or joint pain Cardio Cardiovascular: Yes high blood pressure; no murmur, pacemaker, heart disease, atrial fibrillation, heart attack, heart stent, palpitations, shortness of breat with exertion or chest pain Psych Psychiatric: No depression, anxiety or hearing voices Resp Respiratory: No shortness of breath, No sleep apnea, No cough, No COPD, No asthma, No emphysema, No wheezing Gastro Gastrointestinal: No abdominal pain, No nausea or vomiting, No diarrhea, No constipation, No blood in stool, No acid reflux, No hemorrhoids, No ulcers, No gallbladder problem, No black,tarry stools Kelechi Hematologic: No blood thinners, No blood disorders, No bleeding, No anemia, No blood clots Neuro Neurologic: No system reviewed and no additional complaints, except as docu, No as per HPI, No abnormal walking, No abnormal hearing, No abnormal movements, No abnormal speech, No behavioral changes, No burning sensations, No confusion, No seizure-like activity, No unsteadiness, No dizziness, No localized weakness, No frequent falls, No headache(s), No lack of coordination, No loss of vision, No memory loss, Yes numbness, No other visual disturbances, No radiating pain, No restless legs, No sensory deficit, No fainting, Yes tingling, No tremor(s), No weakness, No other Exam Const General: cooperative, no acute distress HENMT Head: normal to inspection Eyes General: appearance normal, both eyes and all related structures Neck Neck: normal visual inspection Chest Chest palpation AND inspection: normal inspection of the chest Breast Palpation: No nipple discharge Resp Effort AND Inspection: normal respiratory effort Cardio Rate: regular rate Rhythm: regular rhythm Heart Sounds: no murmurs GI Palpation: soft, no hepatosplenomegaly Auscultation: normal bowel sounds Neuro General: CN's II-XI intact bilaterally Extrem Other: Well-healed surgical incision left palm. Diminished flexion range of motion right hand with tight painful stiff movement. Positive Tinel's. Diminished light touch sensation. Thenar atrophy. Assessment AND Plan Problems 1. Carpal tunnel syndrome of right wrist G56.01 Plan Patient has had a successful left carpal tunnel release. She is very pleased with the results. She did not want to be driving over the winter. She had had previous bilateral testing. She now presents to have her right carpal tunnel release. There were no parts of her previous experience that were untoward she states that she was treated very well. Plan Right carpal tunnel release Rakesh Garcia M.D., F.A.C.S. Cc: Dr. Clarke Huitron Medications Discontinued: Coding Level of Care Code Off vis,est,level 2 Diagnoses Carpal tunnel syndrome of right wrist G56.01 12/20/17 1327 <Electronically signed by Rakesh Garcia MD> Date Rakesh Garcia MD Cosigner Signature: Date (if applicable) CC: Clarke Joshi DO ALLERGIES ALLERGIES DATE TYPE / NAME / CODE REACTION SEVERITY SOURCE CODE 07/23/2018 Drug oxycodone Nausea Unknown [place] Allergy/41 HCl/[id number](RXNORM Community [id number]([facility] OME CT) Repository 07/23/2018 Drug KWAN Rash Unknown [place] Allergy/41 Inhibitors/[id number] Community [id number]( (RXNORM) [facility] OME CT) Repository 07/23/2018 Drug Penicillins/[id number] Rash Unknown [place] Allergy/41 6(RXNORM) Community 9268878([facility] OME CT) Repository 07/23/2018 Drug tramadol/[id number](R Nausea Unknown [place] Allergy/41 XNORM) Community [id number]([facility] CT) Repository 07/23/2018 Drug gabapentin/[id number] Swelling Unknown [place] Allergy/41 (RXNORM) Community 5082976([facility] CT) Repository 05/04/2014 DRUG/31118 OXYCODONE-ACETAMINOPH GI UPSET [facility] 1003(SNOME EN [place] D [place]) Repository 05/04/2014 DRUG/00394 HYDROCODONE-ACETAMINO GI UPSET [facility] 1003(SNOME PHEN [place] D CT) Repository 02/13/2011 DRUG CYCLOBENZAPRINE HCL Mental Chg [facility] INGREDI/41 [place] [id number]( Repository OMED CT) 06/26/2005 Drug KWAN INHIBITORS [facility] Class/4195 [place] [address](SNOM Repository ED CT) 06/26/2005 Drug PENICILLINS [facility] Class/4195 [place] [address](SNOM Repository ED CT) ENCOUNTERS ENCOUNTERS ADMIT/DISCHARGE ACCOUNT ADMITTING ENCOUNTER LOCATION SOURCE NUMBER CLASS 07/23/2018/07/23/19 [id number] Ambulatory BMSBuilding:B [place] 19 MS.A [facility] Repository 07/17/2018 [id number] Ambulatory [facility] ing:LAB Repository 07/16/2018 [id number] Ambulatory [facility] ing:LAB Repository 07/08/2018/07/09/20 [id number] Ambulatory [address] [place] Repository 07/07/2018 [id number] Ambulatory [facility] ing:LAB Repository 07/02/2018/07/04/20 [id number] [place], Inpatient [place] [place] [address] [place] Encounter [facility] Hospital ing:PCURoom: Repository [id number]: 1 07/02/2018 [id number] Agyepong, Ambulatory BMSBuilding:Jony Alcazar MS.[facility] Repository 07/02/2018 [id number] Agyepong, Ambulatory BMSBuilding:Jony Alcazar MS.[facility] Repository 07/02/2018 [id number] Agyepong, Ambulatory BMSBuilding:Jony Alcazar MS.CF.[facility] Repository 07/02/2018 [id number] Agyepong, Ambulatory BMSBuilding:Jony Alcazar MS.[facility] Repository 07/02/2018 [id number] Agyepong, Ambulatory BMSBuilding:Jony Alcazar MS.CF.[facility] Repository 02/03/2018/02/04/20 [id number] Ambulatory BMSBuilding:Jony Hernández 18 MS.[facility] Repository 01/28/2018/01/29/20 [id number] Ambulatory [address] ing:[facility] Repository 01/28/2018 [id number] Ambulatory BMSBuilding:Jony Hernández MS.CF.[facility] Repository 01/21/2018/01/22/20 [id number] Ambulatory BMSBuilding:Jony Hernández [address] MS.[facility] Repository 01/21/2018 [id number] Ambulatory BMSBuilding:Peter Hern[facility]dez [facility] Repository 12/20/2017/12/21/19 [id number] Ambulatory BMSBuilding:Jony Hernández 19 MS.[facility]ly [facility], later [facility] Repository PAYERS PAYERS ENCOUNTER GUARANTOR PAYER SUBSCRIBER SOURCE 07/23/2018 ROSIE E Primary ROSIE José Miguel Hernández [id number] Insurance:[facility] DENRIMANDOB: Community [place] MEDICAREPolicy [id number] Number: Repository [id number]: (879) [id number] [phone] Date:0496-98-61RJ [address] [place] [address] 07913DC: 07/23/2018 Secondary NOT GIVENUNK [place] Insurance:SELF PAY [facility] Number: Effective Repository Date:2018-07-21 07/17/2018 ROSIE E Primary ROSIE E Shickley [id number] Insurance:[facility] C[facility] MERRIMANDOB: Community [place] MEDICAREPolicy [id number] [place] Number: Repository [address]Uip: 330 [id number] [phone] (HP) Date:4450-99-93KB [address] [place] [address] 97085LQ: 07/17/2018 Secondary NOT GIVENUNK Edgar Insurance:SELF PAY [facility] Number: Effective Repository Date:2018-07-17 07/16/2018 ROSIE E Primary ROSIE E [place]ick[place] [id number] [facility]: Community [place] MEDICAREPolicy [id number] Number: Repository [address]Ves: 330 [id number] [phone] () Date:8384-24-20UR [address] [place] [address] 18430ZH: 07/16/2018 Secondary NOT GIVENUNK Edgar Insurance:SELF PAY [facility] Number: Effective Repository Date:2018-07-16 07/07/2018 ROSIE E Primary ROSIE E Shickley [id number] Insurance:[facility] CARE MERRIMANDOB: Community [place] MEDICAREPolicy [id number] Number: Repository [address]Gun: 330 [id number] [phone] (HP) Date:9125-92-25SB [address] [place] [address] 81006RZ: 07/07/2018 Secondary NOT GIVENUNK [place] Insurance:SELF PAY [facility] Number: Effective Repository Date:2018-07-07 07/02/2018 ROSIE E Primary ROSIE E Edgar [id number] [facility] MERRIMANDOB: Community [place] [employer] MEDICAREPolicy [id number] Number: Repository [id number]: (330 [id number] [phone] (HP) Date:2461-33-18FY [address] [address]DG: 07/02/2018 Secondary NOT GIVENUNK [place] Insurance:SELF PAY [facility] Number: Effective Repository Date:2018-07-02 07/02/2018 ROSIE E Primary ROSIE E Edgar [id number] Insurance:[facility] CARE MERRIMANDOB: Community [place] MEDICAREPolicy [id number] [place] Number: Repository [address]Kmt: 330 [id number] [phone] (HP) Date:0027-84-58YQ [address] [address]ZS: 07/02/2018 Secondary NOT GIVENUNK Edgar Insurance:SELF PAY [facility] Number: Effective Repository Date:2018-07-02 07/02/2018 ROSIE E Primary ROSIE E Shickley [id number] Insurance:[facility] CARE MERRIMANDOB: Community [place] MEDICAREPolicy [id number] [place] Number: Repository [id number]: 330 [id number] [phone] (HP) Date:7445-66-85KC [address] [address]BB: 07/02/2018 Secondary NOT GIVENUNK [place] Insurance:SELF PAY [facility] Number: Effective Repository Date:2018-07-02 07/02/2018 ROSIE E Primary ROSIE E Edgar [id number] Insurance:[facility] CARE MERRIMANDOB: Community [place], MEDICAREPolicy [id number] [facility] [place] [address]Lbc: Number: Repository [id number] (HP) Date:2271-74-62VF [facility] [address] [place] [address] 87144KZ: 07/02/2018 Secondary NOT GIVENUNK [place] Insurance:SELF PAY [facility] Number: Effective Repository Date:2018-07-02 07/02/2018 ROSIE E Primary ROSIE E Edgar [id number] Insurance:[facility] MERRIMANDOB: [facility] [place] [employer] MEDICAREPolicy [id number] [place] Number: Repository [phone]: 330 [id number] [phone] (HP) Date:4761-30-60KY [facility] [address], [place] [address]ZW: 07/02/2018 Secondary NOT GIVENUNK Shickley Insurance:SELF PAY [facility] Number: Effective Repository Date:2018-07-02 07/02/2018 ROSIE E Primary ROSIE E Edgar [id number] Insurance:[facility] CARE MERRIMANDOB: [facility] [place] [employer] MEDICAREPolicy [id number] [place] Number: Repository [address]Fcp: 330 [id number] [phone] (HP) Date:2761-42-73PN [address] [address]SP: 07/02/2018 Secondary NOT GIVENUNK [place] Insurance:SELF PAY [facility] Number: Effective Repository Date:2018-07-02 02/03/2018 ROSIE E Primary ROSIE E Shickley [id number] Insurance[facility] C[facility] MERRIMANDOB: [facility], MEDICAREPolicy [id number] Hospital of [facility] [place] [address]Bdk: Number: Repository [id number] (HP) Date:4832-58-62ZT [address] [place] [address] 688[address]KX: 02/03/2018 Secondary NOT GIVENUNK [place] Insurance:SELF PAY [facility] Number: Effective Repository Date:2018-02-03 01/28/2018 ROSIE E Primary ROSIE E Edgar [id number] Insurance[facility]: [facility] CenterK[facility], MEDICAREPolicy [id number] Hospital of [facility] [place] [address]Nof: Number: Repository [id number] (HP) Date:1675-32-62EU [address] [place], [place] [address]PA: 01/28/2018 Secondary NOT GIVENUNK Shickley Insurance:SELF PAY [facility] Number: Effective Repository Date:2018-01-13 01/28/2018 ROSIE E Primary ROSIE E Edgar [id number] Insurance[facility]: [facility] CenterK[facility], MEDICAREPolicy [id number] Hospital of [facility] [place] [address]Ooc: Number: Repository [id number] (HP) Date:8258-41-10KC [address] [place] [address] 19[address]CK: 01/28/2018 Secondary NOT GIVENUNK Edgar Insurance:SELF PAY [facility] Number: Effective Repository Date:2018-01-28 01/21/2018 ROSIE E Primary ROSIE E Edgar [id number] Insurance[facility] CARE MERRIMANDOB: [facility] CenterK[facility], MEDICAREPolicy [id number] Hospital of [facility] [place] [address]Lwu: Number: Repository [id number] (HP) Date:1496-24-48TN [address] [place] [address] 39[address]QF: 01/21/2018 Secondary NOT GIVENUNK [place] Insurance:SELF PAY [facility] Number: Effective Repository Date:2018-01-21 01/21/2018 ROSIE E Primary ROSIE E Shickley [id number] Insurance:[facility] CARE MERRIMANDOB: [facility] Center[facility], MEDICAREPolicy [id number] Hospital of [facility] [place] [address]Afj: Number: Repository [id number] (HP) Date:8963-17-07IJ [address] [place] [address] 36034HA: 01/21/2018 Secondary NOT GIVENUNK [place] Insurance:SELF PAY [facility] Number: Effective Repository Date:2018-01-21 12/20/2017 ROSIE E Primary ROSIE E Shickley [id number] Insurance:[facility] CARE MERRIMANDOB: Community [place], [facility] [id number] Hospital of [facility] [place] [address]Yfh: Number: Repository [phone] [id number] () Date:9246-01-01SQ [address]ISO[place], [place] [address]GU: 12/20/2017 Secondary NOT GIVENUNK Edgar Insurance:SELF PAY [facility] Number: Effective Repository Date:2017-12-20
== END 2018-07-04 11:38 | disposition home or self-care (01) | DRG 395 ==
LOC: ED 21:41 → PCU 21:49
PROVIDERS: Admitting Provider Hospitalist; Emergency Provider Emergency Medicine; Family Provider Student in an Organized Health Care Education/Training Program; PCP Student in an Organized Health Care Education/Training Program; Referring Provider Hospitalist; Visit Provider Internal Medicine
DX: K55.039 Acute (reversible) ischemia of large intestine, extent unspecified (principal); N18.3 Chronic kidney disease, stage 3 (moderate); E87.6 Hypokalemia; M19.90 Unspecified osteoarthritis, unspecified site; I12.9 Hypertensive chronic kidney disease with stage 1 through stage 4 chronic kidney disease, or unspecified chronic kidney disease; Z23 Encounter for immunization; Z79.899 Other long term (current) drug therapy
CPT/HCPCS: 36415; 74177; 80048; 80053; 82274; 83630; 83690; 85025; 85027; 85610; 87329; 87493; 87506; 93005; 97161; 97166; 99282; J7030; J7040; J7120; Q9967; 90686; A4216; J0744

== ENCOUNTER → 2018-07-07 09:45 | Outpatient (CLI) | payer MEDICARE, SELFPAY ==
[2018-07-02 22:44] VITALS: BMI 28.1
[2018-07-07 10:39] LABS: Anion Gap 6 (5-15); BUN 29 mg/dL (7-18); BUN/Creat Ratio 20.9 RATIO (10-20); Calcium,Total 9.1 mg/dL (8.5-10.1); Chloride 108 mmol/L (98-107); Creatinine, Serum 1.39 mg/dL (0.55-1.02); EST Glomerular Filtration Rate 39 mL/min (>60); Est Glom Filt Rate - Afr Amer 47 mL/min (>60); Glucose 147 mg/dL (74-106); Potassium 3.1 mmol/L (3.5-5.1); Sodium Level 141 mmol/L (136-145)
--- OUTSIDE RECORDS SUMMARY | 2018-10-08 22:14 | XMS RPT_ITS ---
:1935 Author Organization [place] Support Name Relationship Address Phone BILL LEO Unavailable [address] + [place] [address] R Unavailable Unavailable Unavailable BILL LEO Unavailable [address] + [place] [address] R Unavailable Unavailable Unavailable BILL LEO Unavailable [address] + [place] [address] R Unavailable Unavailable Unavailable BILL LEO Unavailable [address] + [place] [address] R Unavailable Unavailable Unavailable BILL LEO Unavailable [address] + [place] [address] R Unavailable Unavailable Unavailable BILL LEO Unavailable [address] + [place] [address] R Unavailable Unavailable Unavailable BILL LEO Unavailable [address] + [place] [address] R Unavailable Unavailable Unavailable BILL LEO Unavailable [address] + [place] [address] R Unavailable Unavailable Unavailable BILL LEO Unavailable [address] + [place] [address] R Unavailable Unavailable Unavailable BILL LEO Unavailable [address] + [place] [address] R Unavailable Unavailable Unavailable BILL LEO Unavailable [address] + [place] [address] R Unavailable Unavailable Unavailable BILL LEO Unavailable [address] + [place] [address] R Unavailable Unavailable Unavailable BILL LEO Unavailable [address] + [place] [address] R Unavailable Unavailable Unavailable BILL LEO Unavailable [address] + [place] [address] R Unavailable Unavailable Unavailable BILL LEO Unavailable [address] + [place] [address] R Unavailable Unavailable Unavailable BILL LEO Unavailable [address] + [place] [address] R Unavailable Unavailable Unavailable Care Team Providers Name Role Phone CLARKE HUITRON Attending Unavailable MAGDA FLEMING) Referring Unavailable Huitron, Clarke Primary Care Unavailable Agyepong, Ottoniel Admitting Unavailable AgyepongOttoniel Referring Unavailable Paintsil, Howe Attending Unavailable Robotham, Amy Consulting Unavailable Agyepong, Ottoniel Admitting Unavailable AgyepongOttoniel Attending Unavailable AgyepongOttoniel Referring Unavailable Huitron, Clarke Primary Care Unavailable Robotham, Amy Consulting Unavailable Paintsil, Howe Consulting Unavailable AgyeponOttoniel spencer Admitting Unavailable Paintsil, Howe Attending Unavailable AgOttoniel munson Referring Unavailable Huitron, Clarke Primary Care Unavailable Robotham, Amy Consulting Unavailable Paintsil, Howe Consulting Unavailable AgyepongOttoniel Admitting Unavailable Robotham, Amy Attending Unavailable AgapollogOttoniel Referring Unavailable Huitron, Clarke Primary Care Unavailable Robotham, Amy Consulting Unavailable Paintsil, Howe Consulting Unavailable AgyepongOttoniel Admitting Unavailable Paintsil, Howe Attending Unavailable AgOttoniel munson Referring Unavailable Huitron, Clarke Primary Care Unavailable Robotham, Amy Consulting Unavailable Paintsil, Howe Consulting Unavailable Paintsil, Howe Attending Unavailable Paintsil, Howe Referring Unavailable Huitron, Clarke Primary Care Unavailable Radha Rakesh Attending Unavailable Huitron, Clarke Referring Unavailable Huitron, Clarke Primary Care Unavailable Rakesh Garcia Attending Unavailable Radha Rakesh Referring Unavailable Huitron, Clarke Primary Care Unavailable Hayley Duval PA-C Attending Unavailable Huitron, Clarke Referring Unavailable Huitron, Clarke Primary Care Unavailable Radha Rakesh Attending Unavailable Cebul, Rakesh Referring Unavailable Huitron, Clarke Primary Care Unavailable Rakesh Garcia Consulting Unavailable AgOttoniel munson Admitting Unavailable Robotham, Amy Attending Unavailable Ottoniel Zepeda Referring Unavailable Huitron, Clarke Primary Care Unavailable Robotham, Amy Consulting Unavailable Paintsil, Howe Consulting Unavailable Huitron, Clarke Attending Unavailable Huitron, Clarke Referring Unavailable Huitron, Clarke Primary Care Unavailable Huitron, Clarke Attending Unavailable Huitron, Clarke Referring Unavailable Huitron, Clarke Primary Care Unavailable Robotham, Amy Attending Unavailable Huitron, Clarke Referring Unavailable Hayley Duval PA-C Attending Unavailable Huitron, Clarke Referring Unavailable Huitron, Clarke Primary Care Unavailable Gordon Talleyl Attending Unavailable SarahRakesh iniguez Referring Unavailable PROBLEMS PROBLEMS DATE TYPE CONDITION / CODE ATTENDING STATUS SOURCE 07/16/2018 Unknown 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, 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 / [facility] D50.8(ICD-10) Hospital Repository 07/18/2018 Unknown K52.9 - Noninfective Paintsil, Howe Active [facility] gastroenteritis and Community colitis, unspecified / Hospital K52.9(ICD-10) Repository 04/10/2018 Unknown G56.01 - Carpal tunnel CebuRakesh cannon Active [facility] syndrome, right upper Community limb / G56.01(ICD-10) Hospital Repository 03/05/2018 Unknown R94.31 - Abnormal Mayank, [place] Active [facility] electrocardiogram Community [ECG] [EKG] / Hospital R94.31(ICD-10) Repository 03/05/2018 Unknown R00.1 - Bradycardia, Mayank, [place] Active [facility] unspecified / Community R00.1(ICD-10) Hospital Repository 03/05/2018 Unknown I10 - Essential Mayank, Ma[place] Active [facility] (primary) hypertension Community / I10(ICD-10) Hospital Repository PROCEDURES PROCEDURES No Procedure Records FoundRESULTS RESULTS CNCO Observed: 08/11/2018 Status: COMPLETED Source: [place] 12:00 AM [facility] REPOSITORY Letter Text Clarke Huitron D.O. [address] [place], [place] [address] Rosie Leo [address] [place] [address] [facility] #: [id number] 08/11/2018 Dear Ms. Leo, I have received [...] VISIT REPORT Observed: 07/24/2018 Status: F Source: [place] 8:57 AM [facility] REPOSITORY [facility] [address] [place] [address] OFFICE VISIT Date of Service: 07/23/18 MR#: [id number] Acct: [id number] Name: ROSIE LEO Rep #: [id number] : 1935 Provider: Amy Redd MD Age/Sex: 83/F Location: [facility] Status: Signed Intake Vital Signs07/23/18 Body Mass Index (BMI) 28.1 Intake Visit Reasons: F/U HOSPITAL/GI BLEED Chief Complaint: GI Bleed Informatica Mdm Architect Required: No Allergies KWAN Inhibitors Allergy (Verified [...] discuss colonoscopy further. Amy Redd M.D. Pager: [phone] [facility] [address] [place] [address], [facility], [address] [place] [address] Office: [phone] Plan Detail Follow Up 4weeks Coding Level of Care Code Off vis,est,level [address] scan, colon R93.3 Colitis K52.9 Blood per rectum K62.5 07/24/18 0857 <Electronically signed by Amy Redd MD> Date Amy Redd MD Cosigner Signature: Date (if applicable) CC: Clarke Joshi, CBC-COMPLETE BLOOD CNT Collected: 07/17/2018 Status: F Source: [place] NO DIFF 12:33 PM [facility] REPOSITORY TYPE CODE TESTS RESULT OUT OF [...] MPV 9.6 Performed By: #### L100.0500 #### [facility] [address] [place], [place], [address] BASIC METABOLIC Collected: 07/16/2018 Status: F Source: [place] PROFILE (BMP) 10:14 AM [facility] REPOSITORY TYPE CODE TESTS RESULT OUT OF [...] GAP 6 Performed By: #### L500.2500 #### [facility] [address] [place] [address]. [place], [place], [address] PROGRESS Observed: 07/08/2018 Status: COMPLETED Source: [place] 9:39 AM [facility] REPOSITORY O ID: [id number] Author: Clarke Huitron Service: (none) Author Type: Physician Type: Progress Notes Filed: 07/08/2018 9:43 AM Note Text: CC: Rosie Leo is a 83 year old female who presents to the office for hospital follow up HPI: Patient seen on 07/02 for acute onset of blood bright red colored diarrhea, multiple episodes, presented to [facility] for these symptoms and was [...] See patient instructions. Clarke Huitron DO [address] [place] [address] CNOV Observed: 07/08/2018 Status: COMPLETED Source: [place] 8:20 AM [facility] REPOSITORY Office Visit (FAMPWS) ROSIE LEO ([id number]) 1935 F Date Time Provider Department 07/08/18 [...] red colored diarrhea, multiple episodes, presented to [facility] for these symptoms and was [...] 30-44 and albumin creatinine ratio <30 mg/g ([facility]) - DDD (degenerative disc disease), lumbar Dr. [...] Garcia - SLING OPER STRES INCONTINENCE 2013 [facility] - STEREO LOC FOR CORE BRST BX [...] plan. See patient instructions. Clarke Huitron DO [address] [place] [address] Referring Provider: MAGDA FLEMING) [[id number]] Allergies As of Date: 07/08/2018 Noted Allergy [...] 600 mLRfl: 1 CBC [SQCBC] Order #: [id number] FUTURE BASIC METABOLIC PNL [SQP] Order #: [id number] FUTURE Prescriptions as of 07/08/2018 Sig: CIPROFLOXACIN [...] 07/08/18 CONSULTATION Observed: 07/07/2018 Status: F Source: [place] 8:59 PM [facility] REPOSITORY [facility] Medical Records Department [address] [place] [address] Consultation 07/03/18 1223 MR#: [id number] Acct: [id number] Name: ROSIE LEO Rep #: [id number] : 1935 83 From: Amy Redd MD PCP: Clarke Joshi DO Status: DIS IN Y Location: [facility] [id number] Reason for Consult Date of Consultation: 07/03/18 [...] for a colonoscopy. Amy Redd M.D. Pager: [phone] [facility] [address] [place] [address], [facility], [address] [place] [address] Office: [phone] Code Visit Inpatient E AND M: 05484 Init Hosp L2 07/07/182058 <Electronically signed by Amy Redd MD> Date Amy Redd MD Cosigner Signature (if applicable): Date CC: Clarke oJshi DO; Ottoniel Zepeda MD; Amy Redd MD Signed BASIC METABOLIC Collected: 07/07/2018 Status: F Source: [place] PROFILE (BMP) 9:59 AM [facility] REPOSITORY Order Comment: Send Results To: PCP [...] GAP 6 Performed By: #### L500.2500 #### [facility] [address] [place], [address] DISCHARGE SUMMARY Observed: 07/04/2018 Status: F Source: [place] 3:59 PM [facility] REPOSITORY [facility] Medical Records Department [address] [place] [address] Discharge Summary 07/04/18 1045 MR#: [id number] Acct: [id number] Name: ROSIE LEO Rep #: [id number] : 1935 83 From: Amber Tolliver MD PCP: Clarke Joshi DO Status: DIS IN Y [facility] Discharge Date and Diagnosis Date of Admission: [...] applicable Code Visit Inpatient E AND M: 37530 Disch Hosp 07/04/18 1559 <Electronically signed by Amber Tolliver MD> Date Amber Tolliver MD Cosigner Signature (if applicable): Date CC: Amber Tolliver MD; Clarke Joshi DO Signed DISCHARGE INSTRUCTION Observed: 07/04/2018 Status: F Source: [place] 10:45 [facility] REPOSITORY [facility] Medical Records Department [address] [place] [address] Instructions for Home/Discharge Instructions 07/04/18 1037 MR#: [id number] Acct: [id number] Name: ROSIE LEO Rep #: [id number] : 1935 83 From: Amber Tolliver MD [...] LEAD ELECTROCARDIOGRAM Observed: 07/04/2018 Status: F Source: [place] 9:54 AM [facility] REPOSITORY [facility] Cardiovascular Services [address] [place] [address] 12 Lead EKG 07/02/182001 MR#: [id number] Acct: [id number] Name: ROSIE LEO Rep #: [id number] : 1935 83 From: Maury Talley MD Attending Dr: Amber Tolliver MD Status: ADM IN Ordering Dr: Jina Ling MD Date: 07/02/18 Location: [facility] Sex: F C Admitted: 07/02/18 Test Reason [...] ECG Confirmed by MAURY TALLEY MD ([id number]), loan expeditor RAMÓN JUNG (56) on 07/04/2018 9:53:21 AM Referred By: Ottoniel Zepeda Confirmed By:MAURY TALLEY MD 07/04/18 0953 Date Maury Talley MD CC: Amber Tolliver MD; Clarke Joshi DO; Ottoniel Zepeda MD; Jina Ling MD Signed CBC W/DIFF, AUTOMATED Collected: 07/04/2018 Status: F Source: [place] 5:40 AM [facility] REPOSITORY TYPE CODE TESTS RESULT OUT OF [...] Lymph 1.59 Performed By: #### L100.0100 #### [facility] [address] [place], [place], [address] BASIC METABOLIC Collected: 07/04/2018 Status: F Source: [place] PROFILE (BMP) 5:40 AM [facility] REPOSITORY TYPE CODE TESTS RESULT OUT OF [...] GAP 7 Performed By: #### L500.2500 #### [facility] [address] [facility] [place], [address] HISTORY AND PHYSICAL Observed: 07/03/2018 Status: F Source: [place] EXAM 9:19 AM [facility] REPOSITORY [facility] Medical Records Department [address] [place] [address] History and Physical 07/02/182106 MR#: [id number] Acct: [id number] Name: ROSIE LEO Rep #: [id number] : 1935 83 From: Ottoniel Zepeda MD PCP: Clarke Joshi DO Status: ADM IN Y [facility] Problem List (1) Acute hemorrhagic colitis Status: [...] 72 Hours 07/02/18 17:20 Stool Occult Blood (SHAKIAL) - Final Stool Laboratory Tests Past 24 [...] ordered. Code Visit Inpatient E AND M: 27825 Init Hosp L3 07/03/18 0919 <Electronically signed by Ottoniel Zepeda MD> Date Ottoniel Zepeda MD Cosigner Signature: Date (if applicable) CC: Clarke Joshi DO; Ottoniel Zepeda MD Signed CBC-COMPLETE BLOOD CNT Collected: 07/03/2018 Status: F Source: [place] NO DIFF 5:50 AM [facility] REPOSITORY TYPE CODE TESTS RESULT OUT OF [...] MPV 9.2 Performed By: #### L100.0500 #### [facility] [address] [place], [place], [id number] BASIC METABOLIC Collected: 07/03/2018 Status: F Source: [place] PROFILE (BMP) 5:50 AM [facility] REPOSITORY TYPE CODE TESTS RESULT OUT OF [...] GAP 8 Performed By: #### L500.2500 #### [facility] [address] [facility] [place] [place], [address] PROTHROMBIN TIME W/INR Collected: 07/03/2018 Status: F Source: [place] 5:50 AM [facility] REPOSITORY TYPE CODE TESTS RESULT OUT OF RANGE REFERENCE UNITS LAB L300.4150 11.7-14.9 SECONDS Normal PROTIME 13.2 LAB L300.4200 Normal INR 1.0 Performed By: #### L300.3900 #### [facility] [address] [facility] [place], [address] STOOL Observed: 07/03/2018 Status: F Source: [place] LACTOFERRIN/WBC 5:40 AM [facility] REPOSITORY Stool Lacto/WBC Normal Reference Range = Negative Fecal WBC Lactoferrin Positive: Fecal WBC Lactoferrin present Performed By: #### M100.0605 #### [facility] [address] [facility] [place], [address] Observed: 07/03/2018 Status: F Source: [place] CDIFF (MOLECULAR) 5:40 AM [facility] REPOSITORY Is the patient receiving laxatives? N New/unexplained onset of 3 or more stools in past 24 hrs? Y Cdiff-Molecular C. Diff DNA Negative- No toxigenic C. Diff DNA Detected NAAT METHOD Testing was performed using nucleic acid amplification Performed By: #### M100.6796 #### [facility] [address] [place], [place], [address] Observed: 07/03/2018 Status: F Source: [place] ENTERIC PATHOGEN 5:40 AM [facility] PANEL STOOL REPOSITORY EP PANEL STOOL Not [...] Not Detected Performed By: #### M100.637 #### [facility] [address] [place] [address], [address] GIARDIA LAMBLIA, Collected: 07/03/2018 Status: F Source: [place] STOOL EIA 5:40 AM [facility] REPOSITORY TYPE CODE TESTS RESULT OUT OF RANGE REFERENCE UNITS LAB L7400.3300 Negative Normal Giardia Stool Negative Result Comment: Performed at: - [facility] [address] [id number] Cake Maker: Cristo Steel PhD, Phone: [phone] Performed By: #### L7400.3300 #### [facility] (refer to report for specific site) refer to report for address and phone number EMERGENCY DEPARTMENT Observed: 07/03/2018 Status: F Source: [place] SUMMARY 1:26 AM [facility] REPOSITORY [facility] Medical Records Department [address] [place] [address] Emergency Department Summary 07/02/18 1726 MR#: [id number] Acct: [id number] Name: ROSIE LEO Rep #: [id number] : 1935 83 From: Jina Ling MD [...] GI bleed This note was generated with HopeLabation software. It may contain incorrect words, spelling, and punctuation that were not noted in review of the chart prior to signing ED Disposition - Plan for ED Patient: Disposition: Acute Care Hospital [facility] Chief Complaint: GI Bleed What to do if you have Problems For any increased pain, shortness of breath, bleeding, nausea or vomiting, chest pain, or any unexpected problems, contact your Primary Care Provider. Call [facility] ([phone]) or report to the closest Emergency Room. Call 911 if necessary. 07/03/18 0126 <Electronically signed by Jina Ling MD> Date Jina Ling MD Cosigner Signature (If Indicated): Date CC: Clarke Joshi DO ABDOMEN/PELVIS W IV CONT Observed: 07/02/2018 Status: F Source: [place] ONLY 7:31 PM [facility] REPOSITORY [facility] Imaging Services [address] [place] [address] Abdomen/Pelvis W IV Cont ONLY MR#: [id number] Acct: [id number] Name: ROSIE LEO Rep #: [id number] : 1935 F 83 From: Giovani Jimenez MD PCP: Clarke Joshi DO Status: REG ER Study: Abdomen/Pelvis W IV Cont ONLY Date of Exam: 07/02/18 Exam# [id number] Ordering Dr: Jina Ling MD STUDY: CT [...] CC: Clarke Joshi DO; Jina Ling MD Logger All Round: Signed CBC W/DIFF, AUTOMATED Collected: 07/02/2018 Status: F Source: [place] 5:30 PM [facility] REPOSITORY TYPE CODE TESTS RESULT OUT OF [...] Lymph 1.18 Performed By: #### L100.0100 #### [facility] [address] [place], [place], [address] COMPREHENSIVE METABOLIC Collected: 07/02/2018 Status: F [facility] REPOSITORY TYPE CODE TESTS RESULT OUT OF [...] GAP Performed By: #### L500.4050, L501.2450 #### [facility] [address] [place], [place], [id number] LIPASE Collected: 07/02/2018 Status: F Source: [place] 5:30 PM [facility] REPOSITORY TYPE CODE TESTS RESULT OUT OF RANGE REFERENCE UNITS LAB L501.2450 73-393 U/L Normal LIPASE 151 Performed By: #### L500.4050, L501.2450 #### [facility] [address] [place], [address] Observed: 07/02/2018 Status: F Source: [place] STOOL OCCULT BLOOD 5:20 PM [facility] IFOB REPOSITORY Has pt arrived? Y STOB iFOB Occult Blood Positive Performed By: #### M100.7900 #### [facility] [address] [place], [address] SURGERY VISIT REPORT Observed: 02/03/2018 Status: F Source: [place] 12:40 PM [facility] REPOSITORY [facility] [address] [place] [address] OFFICE VISIT Date of Service: 02/03/18 MR#: [id number] Acct: [id number] Name: ROSIE LEO Rep #: [id number] : 1935 Provider: Hayley Duval PA-C Age/Sex: 82/F Location: [facility] Status: Signed Intake Intake Visit Reasons: Suture Removal Rt CTR 01/28 RC Chief Complaint: suture removal right carpal tunnel Informatica Mdm Architect Required: No Is patient in pain?: No [...] 01/28/2018 Status: F Source: [place] 11:42 AM [facility] REPOSITORY [facility] Medical Records Department [address] [place] [address] Instructions for Home/Discharge Instructions 01/28/18 0736 MR#: [id number] Acct: [id number] Name: ROSIE LEO Rep #: [id number] : 1935 82 From: Rakesh Garica MD PCP: Clarke Joshi DO Status: [place]P [facility] Discharge Diet: Light diet - advance as [...] fingers for light work. Allergies/Adverse Reactions: Allergies KAWN Inhibitors Allergy (Verified 01/21/18 08:42) Rash Penicillins [...] Follow Up With: Rakesh Garcia MD - [phone] When: Call to make an appointment to be seen on Saturday02/03/18 01/28/18 1142 <Electronically signed by Rakesh Garcia MD> Date Rakesh Garcia MD CC: Clarke Joshi DO OPERATIVE REPORT Observed: 01/28/2018 Status: F Source: [place] 8:18 AM [facility] Medical Records Department [address] [place] [address] Operative Report 01/28/18812 MR#: [id number] Acct: [id number] Name: ROSIE LEO Rep #: [id number] : 1935 82 From: Rakesh Garcia MD PCP: Clarke Joshi DO Status: REG [facility] Y Location: [place] [address] Problem List (1) Carpal tunnel syndrome of [...] Status: F Source: [place] SHEATH 7:15 AM [facility] REPOSITORY Patient: ROSIE LEO : 1935 (82/F) Acct Num: [id number] Phys: Radha MUSTAFA,Rakesh Unit Num: [id number] [place]: [facility] Specimen: [id number] Received: 01/28/18 - 1040 Spec Type: TENDON [...] one cassette. / AM: 01/28/18 TC:5 CPT: 10579 HEADER OPERATION: Right carpal tunnel release, right fourth digit trigger finger PRE-OP DIAGNOSIS: Carpal tunnel syndrome of right wrist TISSUE SUBMITTED: Tenosynovium MICROSCOPIC DESCRIPTION Slides are reviewed. MICROSCOPIC DIAGNOSIS Tenosynovium: Fragments of fibrocartilaginous tissue with reactive changes. SJ:ina 01/29/18 Signed Ag Wallace 01/29/18 <signature on file> Performed By: #### PTESH #### [facility] [address] [place], [address] [facility] Observed: 01/28/2018 Status: COMPLETED Source: [place] 12:00 AM [facility] REPOSITORY Patient Outreach (FAMPST) ROSIE LEO ([id number]) 1935 F Date Time Provider Department 01/28/18 [...] [Z79.899] Order(s):LIPID PANEL BASIC [SQLIPB] Order #: [id number] FUTURE Prescriptions as of 01/28/2018 Sig: DILTIAZEM [...] 01/23/2018 Status: F Source: [place] 10:16 AM [facility] REPOSITORY [facility] Cardiovascular Services [address] [place] [address] 12 Lead EKG 01/21/18 0943 MR#: [id number] Acct: [id number] Name: ROSIE LEO Rep #: [id number] : 1935 82 From: Maury Talley MD Attending Dr: Rakesh Garcia MD Status: PRE SDC Ordering Dr: Rakesh Garcia MD Date: 01/21/18 [place] [facility] Sex: F C Admitted: Test Reason : [...] Bifascicular block Abnormal ECG Confirmed by MAYANK MUSTAAF, MAURY ([id number]), loan expeditor RAMÓN JUNG (56) on 01/23/2018 10:15:45 AM Referred By: Rakesh Garcia Confirmed By:MAURY TALLEY MD 01/23/18 1015 Date Maury Talley MD CC: Clarke Joshi DO; Rakesh Garcia MD Signed CBC-COMPLETE BLOOD CNT Collected: 01/21/2018 Status: F Source: [place] NO DIFF 9:30 AM [facility] REPOSITORY TYPE CODE TESTS RESULT OUT OF [...] MPV 9.9 Performed By: #### L100.0500 #### [facility] [address] [place], [address] BASIC METABOLIC Collected: 01/21/2018 Status: F Source: [place] PROFILE (BMP) 9:30 AM [facility] REPOSITORY TYPE CODE TESTS RESULT OUT OF [...] GAP 7 Performed By: #### L500.2500 #### [facility] [address] [place], [address] SURGERY VISIT REPORT Observed: 01/21/2018 Status: F Source: [place] 9:27 AM [facility] REPOSITORY [facility] [address] [place] [address] OFFICE VISIT Date of Service: 01/21/18 MR#: [id number] Acct: [id number] Name: ROSIE LEO Rep #: [id number] : 1935 Provider: Hayley Duval PA-C Age/Sex: 82/F Location[place] [facility] Status: Signed Intake Vital Signs01/21/18 Height 5 [...] VISIT REPORT Observed: 12/20/2017 Status: F Source: [place] 1:27 PM [facility] REPOSITORY [facility] [address] [place] [address] [address] [place] [address] OFFICE VISIT Date of Service: 12/20/17 MR#: [id number] Acct: [id number] Name: ROSIE LEO Rep #: [id number] : 1935 Provider: Rakesh Garcia MD Age/Sex: 82/F Location: [facility] Status: Signed Intake Vital Signs12/20/17 Height 5 ft 2 in 12/20/17 Weight: 140 lb Intake Visit Reasons: right carpal tunnel, left done by cebul [employer] Mdm Architect Required: No Is patient in pain?: No [...] PO DAILY 01/07/17 [History Confirmed 12/20/17] Hydrocodone/Acetaminophen [Fielding 5-325 Tablet] 0.5 - 1 ea PO [...] portion of the fourth digit. At the [facility] on June 04, 2017 she had nerve [...] 07/23/2018 Drug oxycodone Nausea Unknown [place] Allergy/41 HCl/[id number](RXNORM Community 7020676([facility] OME CT) Repository 07/23/2018 Drug KWAN Rash Unknown [place] Allergy/41 Inhibitors/[id number] Community 9312245( (RXNORM) [facility] OME CT) Repository 07/23/2018 Drug Penicillins/[id number] Rash Unknown [place] Allergy/41 6(RXNORM) Community 9198538([facility] OME CT) Repository 07/23/2018 Drug tramadol/[id number](R Nausea Unknown [place] Allergy/41 XNORM) Community 6107123([facility] CT) Repository 07/23/2018 Drug gabapentin/[id number] Swelling Unknown [place] Allergy/41 (RXNORM) Community 5544340([facility] CT) Repository 05/04/2014 DRUG/93855 OXYCODONE-ACETAMINOPH GI UPSET [facility] 1003(SNOME EN [address] [place] [address]) Repository 05/04/2014 DRUG/38205 HYDROCODONE-ACETAMINO GI UPSET [facility] 1003(SNOME PHEN [place]) Repository 02/13/2011 DRUG CYCLOBENZAPRINE HCL Mental Chg [facility] INGREDI/41 [place] 9196602( Repository OMED CT) 06/26/2005 Drug KWAN INHIBITORS [facility] Class/4195 [place] [address](SNOM Repository ED CT) 06/26/2005 Drug PENICILLINS [facility] Class/4195 [place] [address](SNOM Repository ED CT) ENCOUNTERS ENCOUNTERS ADMIT/DISCHARGE ACCOUNT ADMITTING ENCOUNTER LOCATION SOURCE NUMBER CLASS 07/23/2018/07/23/19 [id number] Ambulatory BMSBuilding:B Edgar 19 MS.A [facility] Repository 07/17/2018 [id number] Ambulatory [facility] ing:LAB Repository 07/16/2018 [id number] Ambulatory [facility] ing:LAB Repository 07/08/2018/07/09/20 [id number] Ambulatory [address] [place] Repository 07/07/2018 [id number] Ambulatory [facility] ing:LAB Repository 07/02/2018/07/04/20 [id number] Agyepong, Inpatient [place] 18 Ottoniel Encounter [facility] ing:PCURoom: Repository [id number]: 1 07/02/2018 [id number] Agyepong, Ambulatory BMSBuilding:Jony Alcazar MS.Formerly [facility] Repository 07/02/2018 [id number] Agyep[place], Ambulatory BMSBuilding:Jony Alcazar MS.[facility] Repository 07/02/2018 [id number] Agyepong, Ambulatory BMSBuilding:Jony Alcazar MS.CF.[facility] Repository 07/02/2018 [id number] Agyepong, Ambulatory BMSBuilding:Jony Alcazar MS.[facility]ly [facility] Repository 07/02/2018 [id number] Agyepong, Ambulatory BMSBuilding:Jony Alcazar MS.CF.[facility] Repository 02/03/2018/02/04/20 [id number] Ambulatory BMSBuilding:Jony Hernández 18 MS.[facility] Repository 01/28/2018/01/29/20 [id number] Ambulatory [address] ing[place] [place] 01/28/2018 [id number] Ambulatory BMSBuilding:Jony Hernández MS.CF.[facility] Repository 01/21/2018/01/22/20 [id number] Ambulatory BMSBuilding:Jony Hernández 18 MS.[facility] Repository 01/21/2018 [id number] Ambulatory BMSBuilding:Peter Hernández [facility] Repository 12/20/2017/12/21/19 [id number] Ambulatory BMSBuilding:Jony Hernández 18 MS.[facility] Repository PAYERS PAYERS ENCOUNTER GUARANTOR PAYER SUBSCRIBER SOURCE 07/23/2018 ROSIE E Primary ROSIE José Miguel Hernández [id number] Insurance:[facility] DENRIMANDOB: Community [place] MEDICAREPolicy [id number] Number: Repository [address]Opl: (341) [id number] [phone] () Date:6787-30-28TC [address] [place] [address] 7[address]UN: 07/23/2018 Secondary NOT GIVENUNK [place] Insurance:SELF PAY [facility] Number: Effective Repository Date:2018-07-21 07/17/2018 ROSIE E Primary ROSIE E [place] [id number] Insurance:[facility] C[facility] MERRIMANDOB: Community [place] MEDICAREPolicy [id number] Number: Repository [address]Fvn: 330 [id number] [phone] (HP) Date:0506-39-46AI [address] [place] [address] 00494XD: 07/17/2018 Secondary NOT GIVENUNK Edgar Insurance:SELF PAY [facility] Number: Effective Repository Date:2018-07-17 07/16/2018 ROSIE E Primary ROSIE E [place] [id number] [facility] MERRIMANDOB: Community [place] MEDICAREPolicy [id number] Number: Repository [address]Uob: 330 [id number] [phone] () Date:8840-68-76WX [address] [place] [address] 49691CZ: 07/16/2018 Secondary NOT GIVENUNK Edgar Insurance:SELF PAY [facility] Number: Effective Repository Date:2018-07-16 07/07/2018 ROSIE E Primary ROSIE E [place] [id number] Insurance:[employer] CARE MERRIMANDOB: Community [employer] [employer] MEDICAREPolicy [id number] [place] Number: Repository 78[address]Yik: 330 [id number] [phone] (HP) Date:1742-41-69PV [address] [place] [address] 13669RU: 07/07/2018 Secondary NOT GIVENUNK [place] Insurance:SELF PAY [facility] Number: Effective Repository Date:2018-07-07 07/02/2018 ROSIE E Primary ROSIE E Edgar [id number] Insurance[facility] MERRIMANDOB: Community [employer] [employer] MEDICAREPolicy [id number] [place] Number: Repository [id number]: (330 [id number] [phone] (HP) Date:2506-12-62XD [address] [address]CT: 07/02/2018 Secondary NOT GIVENUNK [place] Insurance:SELF PAY [facility] Number: Effective Repository Date:2018-07-02 07/02/2018 ROSIE E Primary ROSIE E Edgar [id number] Insurance:[employer] CARE MERRIMANDOB: Community [employer] MEDICAREPolicy [id number] [place] Number: Repository [address]Kcn: 330 [id number] [phone] (HP) Date:7660-07-83AY [address] [address]PW: 07/02/2018 Secondary NOT GIVENUNK Edgar Insurance:SELF PAY [facility] Number: Effective Repository Date:2018-07-02 07/02/2018 ROSIE E Primary ROSIE E [place] [id number] Insurance:[facility] CARE MERRIMANDOB: Community [employer] MEDICAREPolicy [id number] [place] Number: Repository 266[address]Kic: 330 [id number] [phone] (HP) Date:8372-27-93ME [address] [address]ZX: 07/02/2018 Secondary NOT GIVENUNK [place] Insurance:SELF PAY [facility] Number: Effective Repository Date:2018-07-02 07/02/2018 ROSIE E Primary ROSIE E Edgar [id number] Insurance:[facility] CARE MERRIMANDOB: Community [place]RY [place], MEDICAREPolicy [id number] [facility] [address]Her: Number: Repository [id number] (HP) Date:4890-35-49LW [facility] [address] [place] [address] 05334GE: 07/02/2018 Secondary NOT GIVENUNK [place] Insurance:SELF PAY [facility] Number: Effective Repository Date:2018-07-02 07/02/2018 ROSIE E Primary ROSIE E Edgar [id number] Insurance:[facility] MERRIMANDOB: [facility] MEAGHAN STAPT MEDICAREPolicy [id number] City, [place] Number: Repository [address]Nvw: 330 [id number] [phone] (HP) Date:1278-31-00CL [facility] [address], [place] [address]DS: 07/02/2018 Secondary NOT GIVENUNK [place] Insurance:SELF PAY [facility] Number: Effective Repository Date:2018-07-02 07/02/2018 ROSIE E Primary ROSIE E Edgar [id number] Insurance:[facility] CARE MERRIMANDOB: [facility] MEAGHAN STAPT MEDICAREPolicy [id number] City, [place] Number: Repository [address]Qyf: 330 [id number] [phone] (HP) Date:7630-65-29US [address] [address]QA: 07/02/2018 Secondary NOT GIVENUNK [place] Insurance:SELF PAY [facility] Number: Effective Repository Date:2018-07-02 02/03/2018 ROSIE E Primary ROSIE E [place] [id number] Insurance:[facility] C[facility] MERRIMANDOB: [facility], MEDICAREPolicy [id number] Cancer Center [address]Gro: Number: Repository [id number] (HP) Date:2139-19-29VH [address] [place] [address] 225[address]IV: 02/03/2018 Secondary NOT GIVENUNK [place] Insurance:SELF PAY [facility] Number: Effective Repository Date:2018-02-03 01/28/2018 ROSIE E Primary ROSIE E Edgar [id number] Insurance:[facility]: [facility], MEDICAREPolicy [id number] Cancer Center [address]Wvb: Number: Repository [id number] (HP) Date:3832-71-70ME [address], [place] [address]JV: 01/28/2018 Secondary NOT GIVENUNK [place] Insurance:SELF PAY [facility] Number: Effective Repository Date:2018-01-13 01/28/2018 ROSIE E Primary ROSIE E Edgar [id number] Insurance:[facility]: [facility] Hospital[facility], MEDICAREPolicy [id number] Cancer Center [address]Vlp: Number: Repository [id number] (HP) Date:1078-72-28CD [address] [place] [address]NJ: 01/28/2018 Secondary NOT GIVENUNK Edgar Insurance:SELF PAY [facility] Number: Effective Repository Date:2018-01-28 01/21/2018 ROSIE E Primary ROSIE E Edgar [id number] Insurance:[facility] CARE MERRIMANDOB: [facility], MEDICAREPolicy [id number] Cancer Center [address]Eqf: Number: Repository [id number] (HP) Date:4887-64-95VA [address] [place] [address]EK: 01/21/2018 Secondary NOT GIVENUNK [place] Insurance:SELF PAY [facility] Number: Effective Repository Date:2018-01-21 01/21/2018 ROSIE E Primary ROSIE E [place] [id number] Insurance:[facility] CARE MERRIMANDOB: [facility], MEDICAREPolicy [id number] Cancer Center [address]Goo: Number: Repository [id number] (HP) Date:0966-17-56OF [address] [place] [address] 85689SN: 01/21/2018 Secondary NOT GIVENUNK [place] Insurance:SELF PAY [facility] Number: Effective Repository Date:2018-01-21 12/20/2017 ROSIE E Primary ROSIE E [place] [id number] Insurance:[facility] CARE MERRIMANDOB: Community ARNOLD RDDALTON, MEDICAREChan [facility] [id number] Cancer Center [address]Yku: Number: Repository [phone] [id number] () Date:7351-99-17TQ [address]ISOh[place], [place] [address]EE: 12/20/2017 Secondary NOT GIVENUNK Edgar Insurance:SELF PAY [facility] Number: Effective Repository Date:2017-12-20
== END ==
PROVIDERS: Family Provider Student in an Organized Health Care Education/Training Program; PCP Student in an Organized Health Care Education/Training Program; Referring Provider Internal Medicine; Visit Provider Internal Medicine
DX: E87.6 Hypokalemia (principal)
CPT/HCPCS: 36415; 80048

== ENCOUNTER → 2018-07-16 10:00 | Outpatient (CLI) | payer MEDICARE, SELFPAY ==
[2018-07-02 22:44] VITALS: BMI 28.1
[2018-07-16 11:26] LABS: Anion Gap 6 (5-15); BUN 25 mg/dL (7-18); BUN/Creat Ratio 20.3 RATIO (10-20); Calcium,Total 8.9 mg/dL (8.5-10.1); Chloride 109 mmol/L (98-107); Creatinine, Serum 1.23 mg/dL (0.55-1.02); EST Glomerular Filtration Rate 44 mL/min (>60); Est Glom Filt Rate - Afr Amer 54 mL/min (>60); Glucose 120 mg/dL (74-106); Potassium 3.4 mmol/L (3.5-5.1); Sodium Level 143 mmol/L (136-145)
== END ==
PROVIDERS: Family Provider Student in an Organized Health Care Education/Training Program; PCP Student in an Organized Health Care Education/Training Program; Referring Provider Student in an Organized Health Care Education/Training Program; Visit Provider Student in an Organized Health Care Education/Training Program
DX: D50.8 Other iron deficiency anemias (principal); E87.6 Hypokalemia
CPT/HCPCS: 36415; 80048

== ENCOUNTER → 2018-07-17 12:29 | Outpatient (CLI) | payer MEDICARE, SELFPAY ==
[2018-07-02 22:44] VITALS: BMI 28.1
[2018-07-17 13:34] LABS: Hematocrit 41.5 % (37-47); Hemoglobin 13.3 g/dl (12.0-15.0); Mean Corpuscular Hgb 28.7 pg (27.0-32.0); Mean Corpuscular Volume 89.6 fL (81-99); Mean Platelet Vol. 9.6 fl (6.2-12.0); Platelet Count 203 K/mm3 (150-450); RBC Distribution Width CV 13.6 % (11.6-14.6); RBC Distribution Width SD 44.9 fl (35.1-43.9); Red Blood Count 4.63 M/mm3 (4.2-5.4)
[2018-07-17 13:35] LABS: Scan Indicated on CBC? Y/N NO
== END ==
PROVIDERS: Family Provider Student in an Organized Health Care Education/Training Program; PCP Student in an Organized Health Care Education/Training Program; Referring Provider Student in an Organized Health Care Education/Training Program; Visit Provider Student in an Organized Health Care Education/Training Program
DX: D50.8 Other iron deficiency anemias (principal); E87.6 Hypokalemia
CPT/HCPCS: 85027

== ENCOUNTER 2018-09-08 08:30 | Day surgery (SDC) | payer MEDICARE, SELFPAY ==
[2018-08-27 13:17] VITALS: BMI 28.1
[2018-09-08 08:56] VITALS: BP 153/95; PULSE 66; RESP 18; TEMP 36.2; O2SAT 100; BMI 27.4
--- NOTE | 2018-09-08 09:30 | COLBX_PTH ---
PATIENT: ROSIE MORALES LOC: EN U#:[id number] AGE/SX: 83/F ROOM: RE09/08/[address]: Dr. Amy Redd MD : 1935 BED: DIS: 09/08/2018 SPEC #: [id number] RECD: 09/08/18 10:59 STATUS: KELLIE HEAVEN #: [id number] BRE: 09/08/18 09:[address]: Amy Redd DEPT: SURGICAL PATHOLOGY RECD BY: Benito Mcgregor ENTERED: 09/08/18 12:55 SP TYPE: COLON BX OT DR: Dr. Clarke Murphy DO Tissues: Sigmoid colon biopsy Procedures: Surgery Specimen Level IV HEADER OPERATION: Colonoscopy (MAC) PRE-OP DIAGNOSIS: GI bleed follow up TISSUE SUBMITTED: Biopsy sigmoid erythema MICROSCOPIC DIAGNOSIS Sigmoid erythema, biopsy: A fragment of colonic mucosa with focal congestion and hemorrhage. Negative for malignancy. SJ:ina 09/09/18 MICROSCOPIC DESCRIPTION Slides are reviewed. GROSS DESCRIPTION Received in fixative is one container labeled with the patient's name and designated biopsy sigmoid erythema. The specimen consists of one irregular fragment of light johnson soft tissue that measures 0.3 x 0.2 x 0.1 cm. The specimen is totally submitted in one cassette. / SJ:ina 09/08/18 TC:5 CPT: 42604
[2018-09-08 09:50] VITALS: BP 138/80; BP 153/95; PULSE 74; RESP 16; TEMP 36.6; O2SAT 99
--- NOTE | 2018-09-08 09:54 | OP.ENDO_ITS ---
Patient Name: Carmina Leo Procedure Date: 09/08/2018 9:07 AM Date of : 1935 Age: 83 Procedure: Colonoscopy Indications: Screening for colorectal malignant neoplasm, hx of ascending/transverse colitis Providers: Amy Redd MD Medicines: Monitored Anesthesia Care Patient Profile: This is an 83 year old female. Last Colonoscopy: none. The patient's first colonoscopy is today. Complications: No immediate complications. Procedure: Pre-Anesthesia Assessment: - Prior to the procedure, a History and Physical was performed, and patient medications and allergies were reviewed. The patient's tolerance of previous anesthesia was also reviewed. The risks and benefits of the procedure and the sedation options and risks were discussed with the patient. All questions were answered, and informed consent was obtained. Prior Anticoagulants: The patient has taken no previous anticoagulant or antiplatelet agents. ASA Grade Assessment: II - A patient with mild systemic disease. After reviewing the risks and benefits, the patient was deemed in satisfactory condition to undergo the procedure. After I obtained informed consent, the scope was passed under direct vision. Throughout the procedure, the patient's blood pressure, pulse, and oxygen saturations were monitored continuously. The pediatric colonoscope was introduced through the anus and advanced to the cecum, identified by the appendiceal orifice, IC valve and transillumination. The colonoscopy was performed without difficulty. The patient tolerated the procedure well. The quality of the bowel preparation was good. Scope In: 9:24:55 AM Scope Withdrawal Time 0 hours 13 minutes 46 seconds Scope Out: 9:47:31 AM Total Procedure Duration Time 0 hours 22 minutes 36 seconds Findings: The perianal and digital rectal examinations were normal. A localized area of mildly erythematous mucosa was found in the sigmoid colon. Biopsies were taken with a cold forceps for histology. The exam was otherwise without abnormality on direct and retroflexion views. Impression: - Erythematous mucosa in the sigmoid colon. - The examination was otherwise normal on direct and retroflexion views. - No specimens collected. Recommendation: - Discharge patient to home. - Continue present medications. - Await pathology results. - Repeat colonoscopy is not recommended due to current age (66 years or older) for surveillance based on pathology results. Procedure Code(s): --- Professional --- G0121, PT, Colorectal cancer screening; colonoscopy on individual not meeting criteria for high risk Diagnosis Code(s): --- Professional --- Z12.11, Encounter for screening for malignant neoplasm of colon K63.89, Other specified diseases of intestine CPT copyright 2017 [employer]. All rights reserved. The codes documented in this report are preliminary and upon superintendent storage area review may be revised to meet current compliance requirements. MD Amy Diaz MD 09/08/2018 9:53:28 AM This report has been signed electronically. Number of Addenda: 0 Note Initiated On: 09/08/2018 9:07 AM
[2018-09-08 09:55] VITALS: BP 146/82; BP 153/95; PULSE 70; RESP 16; O2SAT 99
[2018-09-08 10:00] VITALS: BP 139/80; BP 153/95; PULSE 66; RESP 16; O2SAT 100
[2018-09-08 10:05] VITALS: BP 142/76; BP 153/95; PULSE 63; RESP 16; TEMP 36.8; O2SAT 98
[2018-09-08 10:18] VITALS: BP 153/95
== END 2018-09-08 10:50 | disposition home or self-care (01) ==
LOC: EN 08:31 → AC 08:33
PROVIDERS: Family Provider Student in an Organized Health Care Education/Training Program; PCP Student in an Organized Health Care Education/Training Program; Referring Provider Surgery; Visit Provider Surgery
PROC: 0DJD8ZZ Inspection of Lower Intestinal Tract, Via Natural or Artificial Opening Endoscopic (ICD-10-PCS; CPT 45378; principal; 2018-09-08 09:25)
DX: Z12.11 Encounter for screening for malignant neoplasm of colon (principal); K63.89 Other specified diseases of intestine; K52.9 Noninfective gastroenteritis and colitis, unspecified; I10 Essential (primary) hypertension
CPT/HCPCS: G0121; 88305; J7120

== ENCOUNTER → 2018-09-30 10:24 | Outpatient (CLI) | payer MEDICARE, SELFPAY ==
[2018-09-08 08:56] VITALS: BMI 27.4
== END ==
PROVIDERS: Family Provider Student in an Organized Health Care Education/Training Program; PCP Student in an Organized Health Care Education/Training Program; Referring Provider Student in an Organized Health Care Education/Training Program; Visit Provider Student in an Organized Health Care Education/Training Program
DX: R73.01 Impaired fasting glucose (principal)
CPT/HCPCS: 36415; 83036

== ENCOUNTER → 2018-10-28 | Outpatient (CLI) | payer MEDICARE, SELFPAY ==
[2018-10-28 11:06] LABS: Hematocrit 41.4 % (37-47); Hemoglobin 13.1 g/dl (12.0-15.0); Mean Corp Hgb Conc 31.6 g/gl (32-36); Mean Corpuscular Hgb 28.4 pg (27.0-32.0); Mean Corpuscular Volume 89.6 fL (81-99); Mean Platelet Vol. 9.6 fl (6.2-12.0); Platelet Count 213 K/mm3 (150-450); RBC Distribution Width CV 13.2 % (11.6-14.6); Red Blood Count 4.62 M/mm3 (4.2-5.4); White Blood Count 6.8 K/mm3 (4.4-11.0)
[2018-10-28 11:08] LABS: Scan Indicated on CBC? Y/N NO
[2018-10-28 11:34] LABS: ALB/GLOB Ratio 0.9 RATIO (0.9-2.4); AST(SGOT) 23 U/L (15-37); Alanine Aminotransfer ALT/SGPT 15 U/L (13-56); Albumin, Serum 3.6 g/dL (3.2-5.0); Alkaline Phosphatase 73 U/L (45-117); BUN 24 mg/dL (7-18); BUN/Creat Ratio 20.5 RATIO (10-20); Calcium,Total 9.2 mg/dL (8.5-10.1); Chloride 104 mmol/L (98-107); Creatinine, Serum 1.17 mg/dL (0.55-1.02); EST Glomerular Filtration Rate 47 mL/min (>60); Est Glom Filt Rate - Afr Amer 57 mL/min (>60); Globulin 4.1 g/dL (2.2-4.2); Glucose 123 mg/dL (74-106); Protein, Total 7.7 g/dL (6.4-8.2); Sodium Level 140 mmol/L (136-145)
[2018-10-28 11:35] LABS: Anion Gap 4 (5-15)
== END | disposition home or self-care (01) ==
LOC: LAB 09:57
PROVIDERS: Family Provider Student in an Organized Health Care Education/Training Program; PCP Student in an Organized Health Care Education/Training Program; Referring Provider Student in an Organized Health Care Education/Training Program; Visit Provider Student in an Organized Health Care Education/Training Program
DX: I10 Essential (primary) hypertension (principal)
CPT/HCPCS: 36415; 80053; 85027

== ENCOUNTER → 2020-01-05 | Outpatient (CLI) | payer MEDICARE, SELFPAY ==
[2020-01-05 11:38] LABS: Cholesterol 250 mg/dL (200); Ferritin 96 ng/mL (8-252); High Density Lipoprotein 48 mg/dL; Iron 78 ug/dL (50-170); Iron Binding Capacity,Total 321 ug/dL (250-450); PERCENT IRON SATURATION 24.3 % (15.0-55.0); Triglycerides 184 mg/dL; Very Low Density Lipoprotein 37 mg/dL (5-40)
[2020-01-05 11:43] LABS: Hemoglobin A1c 6.1 % (3.8-5.6)
== END | disposition home or self-care (01) ==
LOC: LABSPEC 11:09
PROVIDERS: PCP Student in an Organized Health Care Education/Training Program; Referring Provider Student in an Organized Health Care Education/Training Program; Visit Provider Student in an Organized Health Care Education/Training Program
DX: I10 Essential (primary) hypertension (principal); D50.8 Other iron deficiency anemias; R73.01 Impaired fasting glucose
CPT/HCPCS: 80061; 82728; 83036; 83540; 83550

== ENCOUNTER → 2021-04-07 | Outpatient (CLI) | payer MEDICARE, SELFPAY ==
[2021-04-07 15:18] LABS: Mucous, Urine 0 SEEN /hpf (<or=2+); Red Blood Cells-Urine 0 SEEN /hpf (0-5)
[2021-04-07 15:25] LABS: Color, Urine Yellow (Yellow); Glucose, Dipstick Normal (Normal); Ketone-Dipstick Negative (Negative); Leukocyte Esterase-Dipstick 500 /ul (Negative); Nitrite-Dipstick Negative (Negative); Occult Blood-Urine Negative /ul (Negative); Protein-Dipstick Negative (Negative); Urine Bilirubin Dipstick Negative (Negative); Urine Clarity Clear (Clear); Urine Urobilinogen Normal (Normal); Urine pH 6.5 (5.0 - 8.0)
[2021-04-07 15:33] LABS: Squamous Epithelial Cells - UA 0-5 SEEN /hpf (5-10); White Blood Cells 0-5 SEEN /hpf (0-5)
[2021-04-07 15:34] LABS: Bacteria 1+ /hpf (None Seen)
== END | disposition home or self-care (01) ==
PROVIDERS: PCP Student in an Organized Health Care Education/Training Program; Referring Provider Physician Assistant; Visit Provider Physician Assistant
DX: Z01.810 Encounter for preprocedural cardiovascular examination (principal); R82.90 Unspecified abnormal findings in urine; R73.01 Impaired fasting glucose
CPT/HCPCS: 81001; 83036; 87086; 87088; 87186

== ENCOUNTER → 2023-02-12 | Outpatient (CLI) | payer MEDICARE, SELFPAY ==
--- NOTE | 2023-02-12 11:48 | US_ITS ---
INDICATION: CHRONIC KIDNEY DISEASE EXAMINATION: Ultrasound US Kidney(s) complete (eg, kidneys and bladder) TECHNIQUE: Montelongo scale and color doppler images were obtained of the kidneys. COMPARISON: None. FINDINGS: RIGHT KIDNEY: Measures 10.9 cm in length.. Slight increase in echogenicity. There is no hydronephrosis. No shadowing calculus, focal mass or perinephric collection is demonstrated. There are multiple simple appearing cysts, largest measuring 4.3 cm. LEFT KIDNEY: Measures 13.1 cm in length.. Slight increase in echogenicity. There is no hydronephrosis. No shadowing calculus, focal mass or perinephric collection is demonstrated. There are multiple simple appearing cysts, largest measuring 6.1 cm. URINARY BLADDER: No acute abnormality. US/Kidney and Bladder IMPRESSION: Slight increase in echogenicity of the bilateral kidneys compatible with medical renal disease. No hydronephrosis. Multiple large simple appearing renal cysts. Electronically Signed: Silvano Ojeda MD at 0:03 EDT ,
== END | disposition home or self-care (01) ==
LOC: US 11:46
PROVIDERS: PCP Student in an Organized Health Care Education/Training Program; Referring Provider Internal Medicine Nephrology; Visit Provider Internal Medicine Nephrology
DX: N18.32 Chronic kidney disease, stage 3b (principal)
CPT/HCPCS: 76770

== ENCOUNTER → 2023-05-06 | Outpatient (CLI) | payer MEDICARE, SELFPAY ==
[2023-05-06 10:18] LABS: Albumin, Serum 3.6 g/dL (3.2-5.0); BUN 26 mg/dL (7-18); BUN/Creat Ratio 18.1 RATIO (10-20); Calcium,Total 9.8 mg/dL (8.5-10.1); Chloride 106 mmol/L (98-107); Creatinine, Serum 1.44 mg/dL (0.55-1.02); EST Glomerular Filtration Rate 37 mL/min (>60); Est Glom Filt Rate - Afr Amer 44 mL/min (>60); Glucose 111 mg/dL (74-106); Phosphorus 2.9 mg/dL (2.5-4.9); Potassium 3.3 mmol/L (3.5-5.1); Sodium Level 142 mmol/L (136-145)
== END | disposition home or self-care (01) ==
PROVIDERS: PCP Student in an Organized Health Care Education/Training Program; Referring Provider Internal Medicine Nephrology; Visit Provider Internal Medicine Nephrology
DX: N18.32 Chronic kidney disease, stage 3b (principal)
CPT/HCPCS: 36415; 80069

== ENCOUNTER → 2023-12-30 | Outpatient (CLI) | payer MEDICARE, SELFPAY ==
[2023-12-30 12:26] LABS: Albumin, Serum 3.5 g/dL (3.2-5.0); BUN 31 mg/dL (7-18); Calcium,Total 9.7 mg/dL (8.5-10.1); Chloride 104 mmol/L (98-107); Creatinine, Serum 1.63 mg/dL (0.55-1.02); EST Glomerular Filtration Rate 32 mL/min (>60); Est Glom Filt Rate - Afr Amer 38 mL/min (>60); Glucose 120 mg/dL (74-106); Phosphorus 2.4 mg/dL (2.5-4.9); Potassium 3.1 mmol/L (3.5-5.1); Sodium Level 139 mmol/L (136-145)
== END | disposition home or self-care (01) ==
LOC: LAB 10:41
PROVIDERS: PCP Student in an Organized Health Care Education/Training Program; Referring Provider Internal Medicine Nephrology; Visit Provider Internal Medicine Nephrology
DX: N18.32 Chronic kidney disease, stage 3b (principal)
CPT/HCPCS: 36415; 80069

== ENCOUNTER → 2024-06-22 | Outpatient (CLI) | payer MEDICARE, SELFPAY ==
[2024-06-22 12:38] LABS: Albumin, Serum 3.5 g/dL (3.2-5.0); BUN 21 mg/dL (7-18); BUN/Creat Ratio 16.5 RATIO (10-20); Chloride 107 mmol/L (98-107); Creatinine, Serum 1.27 mg/dL (0.55-1.02); EST Glomerular Filtration Rate 42 mL/min (>60); Est Glom Filt Rate - Afr Amer 51 mL/min (>60); Glucose 97 mg/dL (74-106); Phosphorus 2.7 mg/dL (2.5-4.9); Potassium 3.7 mmol/L (3.5-5.1); Sodium Level 141 mmol/L (136-145)
[2024-06-22 12:59] LABS: PTHIN 189.7 pg/mL (18.4-80.1)
== END | disposition home or self-care (01) ==
LOC: LAB 11:35
PROVIDERS: PCP Student in an Organized Health Care Education/Training Program; Referring Provider Internal Medicine Nephrology; Visit Provider Internal Medicine Nephrology
DX: N18.32 Chronic kidney disease, stage 3b (principal)
CPT/HCPCS: 36415; 80069; 83970

== ENCOUNTER 2024-07-21 14:56 | Emergency (ER) | payer MEDICARE, SELFPAY ==
[2024-07-21 14:57] VITALS: BP 141/73; PULSE 46; RESP 18; TEMP 36.2; O2SAT 97; BMI 27.8
--- NOTE | 2024-07-21 15:00 | EKG12_ITS ---
Test Reason : DIZZY/CP Blood Pressure : */* mmHG Vent. Rate : 53 BPM Atrial Rate : * BPM P-R Int : * ms QRS Dur : 118 ms QT Int : 488 ms P-R-T Axes : * 247 -53 degrees QTcB Int : 457 ms Atrial fibrillation with slow ventricular response Low voltage QRS Right bundle branch block Abnormal ECG Confirmed by FRANCES MUSTAFA, BUSHRA ([id number]), newspaper or periodical editor JUNI BLEVINS ([id number]) on 07/23/2024 6:17:16 AM Referred By: Confirmed By: BUSHRA DANIELS MD
[2024-07-21 15:24] LABS: Absolute Lymphocyte Count 1.33 X10^3/uL (0.83-4.51); Absolute Neutrophil Count 5.6 X10^3/uL (2.0-7.7); Basophil# 0.04 X10^3/uL; Basophil% 0.5 % (0-1); Eosinophil# 0.11 X10^3/uL; Eosinophils% 1.4 % (0-5); Hematocrit 44.2 % (37-47); Hemoglobin 14.1 g/dL (12.0-15.0); Lymphocyte # 1.33 X10^3/ul (0.83-4.51); Lymphocyte % 17.1 % (19-41); Mean Corp Hgb Conc 31.9 g/dL (32-36); Mean Corpuscular Hgb 28.9 pg (27.0-32.0); Mean Corpuscular Volume 90.6 fL (81-99); Mean Platelet Vol. 9.6 fl (6.2-12.0); NRBC Flagged by Analyzer 0 % (0-5); Neutrophil # 5.55 X10^3/uL (2.7-7.7); Neutrophil % 71.6 % (47-70); Platelet Count 208 K/mm3 (150-450); RBC Distribution Width CV 13.5 % (11.6-14.6); RBC Distribution Width SD 45.1 fl (35.1-43.9); Red Blood Count 4.88 M/mm3 (4.2-5.4); White Blood Count 7.8 K/mm3 (4.4-11.0)
--- NOTE | 2024-07-21 15:26 | RAD_ITS ---
INDICATION: chest pain EXAMINATION/TECHNIQUE: X-RAY - XR Chest 1 View COMPARISON: Prior study dated: 01/07/2017. FINDINGS: LINES/DEVICES: None. LUNGS: No consolidation, edema or effusion. No pneumothorax. MEDIASTINUM AND CARDIOVASCULAR STRUCTURES: Borderline enlargement of the cardiac silhouette. Atherosclerotic calcifications and tortuosity of the thoracic aorta. BONES AND SOFT TISSUES: Unremarkable. RAD/Chest 1 View (Portable) IMPRESSION: No radiographic evidence of acute cardiopulmonary disease. Electronically Signed: Héctor Enriquez MD at 15:39 EST ,
--- NOTE | 2024-07-21 15:30 | EX.ED.DYSGE1 ---
HPI History of Present Illness Chief Complaint: Dizziness Detail of Chief Complaint: Dizziness which patient did find is not feeling right and mild sternal ches Informant: patient Onset/Context/Timing Onset: Today (Dizziness at 1330 and chest pressure approximately at noon) Context: Sudden Onset Timing: Continuous (With regards to the chest pressure) and Intermittent (With regards to the dizziness) Quality: Pressure and not feeling right Current Severity: Mild Maximum Severity: Mild Worsened by: Nothing Relieved by: Nothing Associated Symptoms Associated Symptoms: Slight shortness of breath. No double vision, loss of vision slight blurre Narrative Narrative: Patient is an 89-year-old woman. She presents because of dizziness which she describes a funny sensation. If anything, the dizziness is lightheadedness. It is not her spinning or the room spinning. Patient denies black or maroon-colored stool. Patient denies fever, chills night sweats. Patient denies upper respiratory tract infectious systems. Patient does report central chest pressure that is light in severity. There is no precipitating, alleviating or exacerbating factors. This occurred while sitting in a chair. Onset approximately 12 noon. She has no known history of coronary artery disease or heart failure. She denies history of GERD, peptic ulcer disease or biliary disease. She denies back pain. She denies nausea or vomiting. She denies black or maroon-colored stool. Patient denies leg pain, swelling or discoloration. There is no history of VTE. Prior similar symptoms: No Recent Illness/Hospitalization: No [facility] Medical History Carpal tunnel syndrome of right wrist Carpal tunnel syndrome of left wrist Hypertension Nausea and vomiting Vertigo Home Medications ?Medication ?Instructions ?Recorded ?Last Taken ?Type losartan 100 mg tablet 100 mg PO DAILY 04/02/16 09/08/18 06:00 History diltiazem HCl 240 mg 240 mg PO DAILY 07/02/18 09/08/18 06:00 History capsule,extended release 24 hr apixaban 2.5 mg tablet (Eliquis) 2.5 mg PO BID #60 tabs 07/21/24 Unknown Rx metoprolol succinate 25 mg 25 mg PO QHS 07/21/24 Unknown History tablet,extended release 24 hr Allergy/AdvReac Type Severity Reaction Status Date / Time JOE Inhibitors Allergy Rash Verified 07/21/24 14:57 Penicillins Allergy Rash Verified 07/21/24 14:57 gabapentin (From Neurontin) AdvReac Swelling Verified 07/21/24 14:57 oxycodone HCl (From Percocet) AdvReac Nausea Verified 07/21/24 14:57 tramadol AdvReac Nausea Verified 07/21/24 14:57 Family History Father Asthma Heart disease Hypertension Mother Breast cancer Sister Breast cancer Surgical History History of tubal ligation Status post carpal tunnel release (~01/2018) History of thyroid surgery History of hysterectomy Social History Smoking Status: Never smoker alcohol intake: never substance use type: does not use ROS ROS ED Constitutional Constitutional ED: Denies chills, fever(s), subjective, sweats or weight loss Eyes Eyes: Reports blurry vision bilateral (History of macular degenerative disease.); Denies change in vision or diplopia ENT ENT ED: Denies ear pain, rhinorrhea or sore throat Cardiovascular Cardiovascular: Reports chest pain; Denies orthopnea, palpitations, paroxysmal nocturnal dyspnea or racing heartbeat Respiratory/Chest Respiratory/Chest: Denies cough, dyspnea, dyspnea on exertion, orthopnea or paroxysmal nocturnal dyspnea Gastrointestinal Gastrointestinal: Denies abdominal pain, melena, nausea or vomiting Musculoskeletal Musculoskeletal: Denies arthralgias, back pain or myalgias Integumentary Denies rash Neurologic Neurologic: Denies headache(s), paresthesias or weakness Endocrine Endocrinology: Denies cold intolerance or heat intolerance Hematologic/Lymphatic Hematologic/Lymphatic: Reports systems reviewed and no addt'l complaints, except as documented EXAM Physical Exam Const Vital Signs: 07/21/24 14:57 07/21/24 15:35 07/21/24 15:35 Temperature 97.2 F L Temperature Source Temporal Pulse Rate 46 L Respiratory Rate 18 Respiratory Effort Normal Respiratory Pattern Normal Blood Pressure 141/73 H Blood Pressure Mean 95 Pulse Ox 97 Oxygen Delivery Method Room Air Room Air 07/21/24 16:57 07/21/24 18:00 Temperature Temperature Source Pulse Rate 42 L 71 Respiratory Rate 20 H 18 Respiratory Effort Respiratory Pattern Blood Pressure 120/72 160/100 H Blood Pressure Mean 88 120 Pulse Ox 93 96 Oxygen Delivery Method Room Air Room Air Positive well nourished and well developed Constitutional Narrative: Pleasant elderly woman. Vitals are remarked for bradycardia. Monitor reveals narrow complex irregular regular rhythm consistent with A-fib. Rate is in the 40s. There is a To/premature beats noted. General Appearance ED: well developed, NAD and pallor; Negative for cyanotic or diaphoretic HEENT Reports moist mucous membranes HEENT Narrative: Head is atraumatic, cephalic. Ears normal. Nares patent. Eyes PERRL and EOMs intact bilaterally General Eye ED: Negative for pale conjunctiva or scleral icterus Neck no lymphadenopathy, supple and no JVD Chest Wall inspection of chest normal and palpation of chest normal Resp normal respiratory effort and clear to auscultation bilaterally Cardio regular rate and no murmurs Rate: bradycardia Rhythm: abnormal rhythm irregularly irregular GI normal to inspection, nondistended, normoactive bowel sounds, non-tender, non-distended and no masses; Negative for hepatosplenomegaly GI Narrative: There is no palpable pulsatile mass. Palpation: soft Back/Spine no CVA tenderness Extremity normal to inspection General Extremety ED: Negative for edema or tenderness General Extremity: Negative for edema Neuro oriented x3, CN's II-XII intact bilaterally and no sensory deficits noted Neuro Narrative: There is no dysmetria. There is no nystagmus. Sensorium / Orientation: alert Psych mental status grossly normal Skin no rashes or lesions noted, no wounds and skin turgor normal General Skin Exam: elasticity normal and pallor; Negative for jaundice MDM MDM MDM Narrative Medical decision making narrative: The dizziness may represent numerous things. Will assess electrolytes and white count and H&H. Chest pain need to rule out cardiac versus noncardiac etiology. Will obtain EKG, troponin and 2-hour troponin. As previously documented patient has A-fib on the monitor. She nor her son report history of A-fib. She is bradycardic and I presume that is due to the fact that she is on a calcium channel jason as well as a beta-jason. Lab Data Attestation: I reviewed the patient's lab results. Lab results narrative: CBC is essentially normal. Neutrophil percentage is up slightly Labs: Laboratory Results - last 24 hr 07/21/24 07/21/24 15:11 17:13 WBC 7.8 RBC 4.88 Hgb 14.1 Hct 44.2 MCV 90.6 MCH 28.9 MCHC 31.9 L RDW Std Deviation 45.1 H RDW Coeff of Reyes 13.5 Plt Count 208 MPV 9.6 Immature Gran % (Auto) 0.400 Neut % (Auto) 71.6 H Lymph % (Auto) 17.1 L Archer % (Auto) 9.0 Eos % (Auto) 1.4 Baso % (Auto) 0.5 Absolute Neuts (auto) 5.6 Absolute Lymphs (auto) 1.33 Nucleated RBC % 0 Sodium 141 Potassium 3.7 Chloride 107 Carbon Dioxide 30.0 Anion Gap 5 BUN 23 H Creatinine 1.41 H Estim Creat Clear Calc 23.17 Est GFR (MDRD) Af Amer 45 L Est GFR (MDRD) Non-Af 37 L BUN/Creatinine Ratio 16.3 Glucose 107 H Calcium 9.8 Troponin I High Sens 22 16 Radiography Chest X-Ray - ED: 1 View, Read by ED Physician, Normal, Heart, Mediastinum, Bony Structures, No Acute Disease and Chronic Changes Diagnostic Testing: Clinical Impression(s) from Imaging Studies Chest X-Ray 07/21/24 15:26 IMPRESSION: No radiographic evidence of acute cardiopulmonary disease. Electronically Signed: Héctor Enriquez MD at 15:39 EST , EKG Initial EKG: Attestation: I personally reviewed and interpreted this EKG as follows: Interpretation: Atrial Fibrillation (Rate is 53. There is low voltage. QS duration 118 ms. There is RR prime in V1 and V2 which may represent a right bundle branch block. QT is 488 ms. There is no acute ischemic changes.) Prior: Unchanged Treatment and Re-Evaluation :: Garrick 2 VASc score is 4. Call is in place Dr. 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 Plan is to discontinue the metoprolol. She was placed on Eliquis 2.5 mg. This was adjusted because of her age and renal function. She is to call the office for follow-up appointment next week for echo and outpatient workup Discharge Plan Triage Chief Complaint: Dizziness ED Provider: Herber Ryan Dx/Rx/DC Orders Clinical Impression: Orthostatic lightheadedness, Chest pressure, Atrial fibrillation, new onset, History of hypertension, Bradycardia with 41-50 beats per minute, Elevated serum creatinine Prescriptions: New Eliquis 2.5 mg tablet 2.5 mg PO BID Qty: 60 0RF No Action losartan 100 MG tablet 100 mg PO DAILY Patient Comments: BLOOD PRESSURE/ HEART diltiazem HCl 240 MG capsule,extended release 24hr 240 mg PO DAILY metoprolol succinate 25 mg tablet extended release 24 hr 25 mg PO QHS Primary Care Provider: Clarke Murphy Referrals: Clarke Murphy DO [Primary Care Provider] - Activity Restrictions/Additional Instructions: 1. Call Dr. Talley's office on for follow-up appointment. 2. Discontinue the metoprolol at night. Continue taking your diltiazem. 3. You were prescribed a blood thinner. This may cause you to bruise easily or bleed easily. Print Language: Indonesian Disposition Disposition: Home, Self Care
[2024-07-21 15:40] LABS: Anion Gap 5 (5-15); BUN 23 mg/dL (7-18); BUN/Creat Ratio 16.3 RATIO (10-20); Calcium,Total 9.8 mg/dL (8.5-10.1); Chloride 107 mmol/L (98-107); Creatinine, Serum 1.41 mg/dL (0.55-1.02); EST Glomerular Filtration Rate 37 mL/min (>60); Est Glom Filt Rate - Afr Amer 45 mL/min (>60); Estimated Creatinine Clearance 23.17 ml/min; Glucose 107 mg/dL (74-106); Potassium 3.7 mmol/L (3.5-5.1); Sodium Level 141 mmol/L (136-145); Troponin-I HS (w/2H Reflex) 22 pg/mL (3.0-54.0)
[2024-07-21 16:57] VITALS: BP 120/72; PULSE 42; RESP 20; O2SAT 93
[2024-07-21 17:19] LABS: Reflex Troponin-HS? (from REC) Y
[2024-07-21 17:45] LABS: Troponin-I HS 16 pg/mL (3.0-54.0)
[2024-07-21 18:00] VITALS: BP 160/100; PULSE 71; RESP 18; O2SAT 96
[2024-07-21 18:50] VITALS: BP 166/72; PULSE 75; RESP 20; TEMP 36.6; O2SAT 94
== END 2024-07-21 18:51 | disposition home or self-care (01) ==
PROVIDERS: Emergency Provider Emergency Medicine; PCP Student in an Organized Health Care Education/Training Program; Visit Provider Emergency Medicine
DX: R42 Dizziness and giddiness (principal); I48.91 Unspecified atrial fibrillation; R07.89 Other chest pain; R00.1 Bradycardia, unspecified; R79.89 Other specified abnormal findings of blood chemistry
CPT/HCPCS: 71045; 80048; 84484; 85025; 93005; 99285; A4216

== ENCOUNTER 2024-10-18 10:13 | Emergency (ER) | payer MEDICARE, SELFPAY ==
[2024-10-18 10:13] VITALS: BP 170/92; PULSE 77; RESP 14; TEMP 36.8; O2SAT 96; BMI 27.7
--- NOTE | 2024-10-18 11:10 | CT_ITS ---
PROCEDURE: CHEST WITHOUT CONTRAST 10/18/2024 REASON FOR EXAM: 89-year-old female, posterior right rib injury. TECHNIQUE: Chest CT without contrast. Coronal and Sagittal reconstruction series were provided. One or more dose reduction techniques were used (e.g., Automated exposure control, adjustment of the mA and/or kV according to patient size, use of iterative reconstruction technique RADIATION DOSE SUMMARY: See head CT. COMPARISON: None. FINDINGS: Visualization is limited without the use of IV contrast. Hardware: None. Lymph nodes: No axillary, mediastinal or hilar lymphadenopathy. Heart and Vasculature: Mild cardiomegaly without pericardial effusion. Severe coronary artery and thoracic aortic calcifications. Moderate aortic valve and mitral annular calcifications. Dilation of the main pulmonary artery measuring up to 4.0 cm. Aberrant right subclavian artery. Lungs and Airways: The central airways are patent. Bibasilar atelectasis/scarring. Tiny bilateral pulmonary nodules (for example within the right upper lobe series 6, image 25). Trace right pleural effusion. No pneumothorax. Upper Abdomen: Bilateral renal cysts and additional benign renal lesions. Cholelithiasis. Bones/soft tissues: Coarse calcifications within the bilateral breasts. Diffuse osseous demineralization with chronic multilevel vertebral body height loss. Acute, mildly displaced 7th-9th right posterior rib fractures. CT/Chest without Contrast IMPRESSION: 1. Acute, mildly displaced 7th-9th right posterior rib fractures. 2. No additional acute thoracic findings visualized by noncontrast examination. 3. Mild cardiomegaly with severe coronary artery calcifications. Dilation of th e main pulmonary artery, which can be seen with pulmonary hypertension. 4. Tiny bilateral pulmonary nodules, likely noncalcified granulomas. If patien t is high risk, consider optional 1 year follow-up to evaluate for stability. Reading Location: [id number]
[2024-10-18] MEDS: HYDROcodone Bitartrate/Apap 5/325 Tablet PO (11:23)
--- NOTE | 2024-10-18 11:30 | ED.VIS.BACK ---
HPI History of Present Illness Chief Complaint: Back Informant: patient and family Narrative Narrative: 89-year-old female presenting to the emergency room with a chief complaint of back pain and fall. Patient states that she slipped in the shower on Saturday evening struck her back. Since that time she has had pain over the posterior right ribs. Is worse when she moves and lays down. No hemoptysis or shortness of breath. She denies any headache or head injury. She states that she does not have any midline or neck pain. No arm or leg symptoms. Last night symptoms seemed worse. PFSH PFS Medical History Pure hypercholesterolemia Osteopenia Macular degeneration DDD (degenerative disc disease) CKD stage G3b/A1, GFR 30-44 and albumin creatinine ratio <30 mg/g Memory loss SOB (shortness of breath) Dizziness Atrial fibrillation Carpal tunnel syndrome of right wrist Carpal tunnel syndrome of left wrist Hypertension Vertigo Home Medications ?Medication ?Instructions ?Recorded ?Last Taken ?Type diltiazem HCl 240 mg 240 mg PO DAILY 07/02/18 09/08/18 06:00 History capsule,extended release 24 hr losartan 50 mg tablet 50 mg PO DAILY 08/10/24 Unknown History apixaban 2.5 mg tablet (Eliquis) 2.5 mg PO BID #60 tabs 08/11/24 Unknown Rx hydrocodone-acetaminophen 5-325mg 1 tab PO Q6H PRN PRN Pain 2 days 10/18/24 Unknown Rx 5mg-325mg #12 TABLETS Allergy/AdvReac Type Severity Reaction Status Date / Time cyclobenzaprine (From Allergy Intermediate Rash Verified 10/18/24 10:13 Flexeril) JOE Inhibitors Allergy Rash Verified 10/18/24 10:13 Penicillins Allergy Rash Verified 10/18/24 10:13 gabapentin (From Neurontin) AdvReac Swelling Verified 10/18/24 10:13 oxycodone HCl (From Percocet) AdvReac Nausea Verified 10/18/24 10:13 tramadol AdvReac Nausea Verified 10/18/24 10:13 Family History Father Asthma Heart disease Hypertension Mother Breast cancer Sister Breast cancer Surgical History History of tubal ligation Status post carpal tunnel release (~01/2018) History of thyroid surgery History of hysterectomy Social History Smoking Status: Never smoker alcohol intake: never substance use type: does not use ROS ROS ED Constitutional Constitutional ED: Denies chills, fever(s) or weight loss Eyes Eyes: Denies change in vision or diplopia ENT ENT ED: Denies ear pain, rhinorrhea or sore throat Cardiovascular Cardiovascular: Denies chest pain, orthopnea, palpitations or racing heartbeat Respiratory/Chest Respiratory/Chest: Denies cough, dyspnea or orthopnea Gastrointestinal Gastrointestinal: Denies abdominal pain, diarrhea, nausea or vomiting Genitourinary Genitourinary ED: Denies dysuria, hematuria or urinary frequency Musculoskeletal Musculoskeletal: Reports back pain; Denies arthralgias, myalgias or neck pain Integumentary Denies abscess or rash Neurologic Neurologic: Denies headache(s), paresthesias or weakness Psychiatric Psychiatric: Denies anxiety, depression, suicidal ideation or suicidal thoughts Endocrine Endocrinology: Denies polydipsia, polyphagia or polyuria Allergic/Immunologic Allergic/Immunologic ED: Denies mouth swelling, tongue swelling or urticaria EXAM Physical Exam Const Vital Signs: 10/18/24 10:13 Temperature 98.2 F Temperature Source Temporal Pulse Rate 77 Respiratory Rate 14 Blood Pressure 170/92 H Blood Pressure Mean 118 Pulse Ox 96 Oxygen Delivery Method Room Air Positive well nourished and well developed General Appearance ED: well developed and NAD HEENT Reports normocephalic, head/scalp atraumatic and moist mucous membranes Eyes PERRL and EOMs intact bilaterally Neck no lymphadenopathy, supple and no JVD Resp normal respiratory effort and clear to auscultation bilaterally Cardio regular rate, regular rhythm and no murmurs GI normal to inspection, nondistended, normoactive bowel sounds and non-tender Palpation: soft Back/Spine no CVA tenderness and normal ROM Back/Spine Narrative: Patient has tenderness to palpation over the angles of the right posterior mid ribs. There is no appreciable midline thoracic or lumbar spine tenderness. No lumbar paraspinal tenderness. No cervical tenderness. I do not appreciate ecchymosis or abrasions on the skin. Extremity normal to inspection General Extremety ED: Negative for edema General Extremity: Negative for edema Neuro oriented x3 and CN's II-XII intact bilaterally Sensorium / Orientation: alert Motor Exam: strength 5/5 throughout Psych mental status grossly normal Mood & Affect: Negative for depressed or tearful Skin no rashes or lesions noted and no wounds MDM MDM MDM Narrative Medical decision making narrative: Differential diagnosis includes but not limited to rib fracture thoracic fracture pneumothorax pulmonary contusion hemothorax intracranial hemorrhage/hematoma CT the brain was obtained which is negative for intracranial hemorrhage or hematoma. CT of the chest was obtained which demonstrates rib fractures of the right 7 eighth and ninth ribs. There is no obvious pneumothorax. Small hemothorax is seen. Patient received a Friedens for pain. I spoke with her and her son regarding the findings. She is comfortable being discharged home. She feels safe being at home. I will write for Friedens at home. Would recommend PCP follow-up 3 to 5 days. We talked about deep breathing. We talked about the risk of rib displacement as well as pneumonia. Patient understands possible complications/side effects of pain medication. Return if needed. History & Record Review Discussion w/independent historian: Patient and Family Radiography Diagnostic Testing: Clinical Impression(s) from Imaging Studies Chest CT 10/18/24 11:10 IMPRESSION: 1. Acute, mildly displaced 7th-9th right posterior rib fractures. 2. No additional acute thoracic findings visualized by noncontrast examination. 3. Mild cardiomegaly with severe coronary artery calcifications. Dilation of the main pulmonary artery, which can be seen with pulmonary hypertension. 4. Tiny bilateral pulmonary nodules, likely noncalcified granulomas. If patient is high risk, consider optional 1 year follow-up to evaluate for stability. Reading Location: [facility] Brain CT 10/18/24 11:31 IMPRESSION: 1. No acute intracranial finding. 2. 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 3. Findings of chronic microvascular ischemic changes and age-related changes. Reading Location: [facility] Discharge Plan Triage Chief Complaint: Back ED Provider: Kameron Manrique Dx/Rx/DC Orders Clinical Impression: Fall, Fracture, ribs Instructions: ED Rib Fracture Prescriptions: New hydrocodone-acetaminophen 5-325 mg tablet 1 tab PO Q6H PRN PRN (Reason: Pain) 2 Days Qty: 12 0RF No Action losartan 50 mg tablet 50 mg PO DAILY diltiazem HCl 240 MG capsule,extended release 24hr 240 mg PO DAILY Eliquis 2.5 mg tablet 2.5 mg PO BID Qty: 60 11RF Primary Care Provider: Clarke Murphy Referrals: Clarke Murphy DO [Primary Care Provider] - 3-5 Days Print Language: Setswana Disposition Disposition: Home, Self Care
--- NOTE | 2024-10-18 11:31 | CT_ITS ---
EXAM: BRAIN/HEAD WITHOUT CONTRAST CLINICAL HISTORY: 81-year-old female, fall 4 days ago, injury. RADIATION DOSE SUMMARY: CTDlvol: 45 mGy DLP: 800 mGycm COMPARISON: None. TECHNIQUE: Routine CT imaging of the head without IV contrast. Additional multiplanar reformats were obtained. Dose reduction techniques were used including intermediate exposure control (AEC),iterative reconstruction technique, and/or mA and/or KV dose adjustments based on patient's size. FINDINGS: Mild generalized cerebral and cerebellar volume loss with concordant prominence of the ventricles and subarachnoid spaces. Moderate-sized chronic infarct within the left posterior watershed area with associated gliosis. Chronic infarct within the right frontal centrum semiovale and right posterior inferior cerebellum. Chronic lacunar type infarct within the right caudate head and right basal ganglia. Moderate patchy supratentorial white matter hypodensities. No acute intracranial hemorrhage or herniation. Prior ocular lens replacements. The visualized paranasal sinuses and mastoids are unremarkable. Unerupted left frontal upper tooth. No acute calvarial fracture or scalp hematoma. CT/Brain/Head without Contrast IMPRESSION: 1. No acute intracranial finding. 2. Chronic left posterior watershed area, right frontal centrum semiovale and r ight posterior cerebellar infarcts. 3. Findings of chronic microvascular ischemic changes and age-related changes. Reading Location: [id number]
== END 2024-10-18 13:00 | disposition home or self-care (01) ==
LOC: ED 12:53
PROVIDERS: Emergency Provider Emergency Medicine; PCP Student in an Organized Health Care Education/Training Program; Visit Provider Emergency Medicine
DX: S22.41XA Multiple fractures of ribs, right side, initial encounter for closed fracture (principal); N18.32 Chronic kidney disease, stage 3b; I12.9 Hypertensive chronic kidney disease with stage 1 through stage 4 chronic kidney disease, or unspecified chronic kidney disease; W19.XXXA Unspecified fall, initial encounter
CPT/HCPCS: 70450; 71250; 99282

== ENCOUNTER → 2024-12-22 | Outpatient (CLI) | payer MEDICARE, SELFPAY ==
[2024-12-22 13:42] LABS: PTHIN 119 pg/mL (11-61)
== END | disposition home or self-care (01) ==
LOC: LAB 11:44
PROVIDERS: PCP Student in an Organized Health Care Education/Training Program; Referring Provider Internal Medicine Nephrology; Visit Provider Internal Medicine Nephrology
DX: N18.32 Chronic kidney disease, stage 3b (principal)
CPT/HCPCS: 36415; 83970

== ENCOUNTER → 2024-12-28 | Outpatient (CLI) | payer MEDICARE, SELFPAY ==
[2024-12-28 16:27] LABS: Albumin, Serum 4.1 g/dL (3.4-4.8); Anion Gap 11 (5-15); BUN 28 mg/dL (4-19); BUN/Creat Ratio 22.5 RATIO (10-20); Calcium,Total 9.7 mg/dL (7.6-11.0); Carbon Dioxide 26.2 mmol/L (21.0-32.0); Chloride 105 mmol/L (98-108); Creatinine, Serum 1.26 mg/dL (0.70-1.20); EST Glomerular Filtration Rate 41 (>60); Glucose 119 mg/dL (70-99); Phosphorus 3.1 mg/dL (2.7-4.5); Sodium Level 142 mmol/L (133-145)
== END | disposition home or self-care (01) ==
LOC: LAB 14:40
PROVIDERS: PCP Student in an Organized Health Care Education/Training Program; Referring Provider Internal Medicine Nephrology; Visit Provider Internal Medicine Nephrology
DX: N18.32 Chronic kidney disease, stage 3b (principal)
CPT/HCPCS: 36415; 80069